=== PATIENT | female | born 1990 ===

== ENCOUNTER 2024-10-09 15:14 | Inpatient (IN) | payer OTHER, SELFPAY ==
[2024-10-09 16:02] VITALS: BP 130/67; PULSE 74; RESP 20; TEMP 37.4; O2SAT 96
[2024-10-09 16:11] VITALS: BMI 24.3
[2024-10-09] MEDS: OLANZapine 5 MG TABLET PO (16:17)
[2024-10-09] MEDS: Nicotine Polacrilex 2 MG GUM 4 MG BUCCAL (16:17)
[2024-10-09] MEDS: Nicotine 21 MG PATCH.TD24 TRANSDERMA (16:19)
[2024-10-09] MEDS: hydrOXYzine HCL 25 MG TABLET PO (16:50)
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
[2024-10-09 20:00] VITALS: BP 109/51; PULSE 71; TEMP 36.8; O2SAT 96
--- NOTE | 2024-10-09 20:41 | HE.PHANOTE ---
Methadone verified [facility] last dose igevn 10/09/24 @1018
[2024-10-09] MEDS: Gabapentin 600 MG TABLET PO (20:45)
[2024-10-10] MEDS: Acetaminophen 325 MG TABLET 650 MG PO (04:52)
[2024-10-10] MEDS: Nicotine Polacrilex 2 MG GUM 4 MG BUCCAL ×5 (06:13→19:22)
[2024-10-10 06:40] VITALS: BP 136/74; PULSE 78; TEMP 36.8; O2SAT 98
[2024-10-10 06:41] VITALS: BP 136/74
[2024-10-10] MEDS: OLANZapine 5 MG TABLET PO (06:41)
[2024-10-10] MEDS: cloNIDine HCL 0.1 MG TABLET PO (06:41)
--- NOTE | 2024-10-10 07:37 | HO.PSYADMNOT ---
HPI Date of Service: 10/10/24 Chief Complaint: bipolar 1 disorder Sources of Information: patient interviewed and chart reviewed HPI Subjective Notes: 3 Day Healthcare Proxy: No Guardianship: No Medical Problems Affecting Mental Status: No Narrative: 34 yo says she stopped her medications about 6months ago , was overwhelmed with her problems and starting using again- instead of dealing with her problems. Came in quite psychotic and responding to internal stimuli either while on or coming off a recent xs drug use smoking crack and fenatnyl and thc. Got olanzapine x 2 yesterday 5mg- and seems more together today- can participate though limitedly cooperative had brief hospitalist davina, myself and social media marketing manager assessment and was quiet annoyed. But didn't appear psychotic or disruptive- Pt was walking xs fast to her room, then cooperated with short interview around hx- Pt was transferred from [facility] - where she had been agitated and psychotic- Reports prior hx of [facility] care but dropped out- wouldn't really say why- Pt reports she signed a 3 day as she wants to get out and deal with her problems. (also checks come in for disability around this time of month) Said I was losing it as to why she came in - She was feeling suicidal, she had not made an attempt but did have a plan. Wants to go back on GAbapentin 600-800mg tid , zolpidem and seroquel. Past Psychiatric History: [facility] outpaitent, ? therapy ? sub abuse treatment - hx gabapentin, seroquel and ? zopidem last psych hosp was [place] recently inc gabapentin to 800mg tid Medical Evaluation Reviewed: Yes no clear findings outside psa and psych [facility] Medical History Bipolar disorder Polysubstance abuse Family History: pt denies knowing any Social History: says has place to live, says has friends, and family- won't elaborate likely on ssdi or ssi Substance History: crack, fentanyl and thc Trauma History: not obtained Diagnostics Vital Signs (24Hr): Vital Signs - 24 hr 10/09/24 16:02 10/09/24 20:00 10/09/24 20:00 Temperature 99.3 F 98.2 F 98.2 F Pulse Rate 74 71 71 Respiratory Rate 20 Blood Pressure 130/67 109/51 L 109/51 L Pulse Oximetry 96 96 96 Oxygen Delivery Method Room Air Room Air Room Air 10/10/24 06:40 10/10/24 06:41 Temperature 98.2 F Pulse Rate 78 Respiratory Rate Blood Pressure 136/74 136/74 Pulse Oximetry 98 Oxygen Delivery Method Room Air BMI result Body Mass Index 24.3 Meds/Allergies Meds Home Medications ?Medication ?Instructions ?Recorded ?Confirmed ?Type clonidine HCl 0.1 mg tablet 0.1 mg PO BID PRN Anxiety 10/09/24 10/09/24 History gabapentin 600 mg tablet 600 mg PO TID 10/09/24 10/09/24 History hydroxyzine pamoate 50 mg capsule 50 mg PO TID PRN Anxiety 10/09/24 10/09/24 History methadone 10 mg/mL oral syringe 90 mg PO DAILY 10/09/24 10/09/24 History (FOR ORAL USE ONLY) quetiapine 50 mg tablet 50 mg PO BID PRN Anxiety 10/09/24 10/09/24 History Allergies Allergies Allergy/AdvReac Type Severity Reaction Status Date / Time Sulfa (Sulfonamide Allergy Unknown Unknown Verified 10/09/24 16:00 Antibiotics) Mental Status Exam Mental Status Exam Patient Appearance: Unkempt Patient Orientation: Person, Place, Time and Situation Level of Consciousness: Awake Patient Behavior: Guarded, Resistive to Care, Distractible and Poor Eye Contact Mood Description: Suspicious and Apprehensive Affect Description: Blunted Patient Cognition Impaired: No Ability to Follow Directions: Fair Speech Pattern: Clear Hallucinations: None Delusions: Paranoid Ideation (?) Thought Process: Intact and Goal Oriented Thought Content: positive for Suicidal Ideation Depressive Symptoms: Increased Irritability Abnormal Motor Activity Signs and Symptoms: Restlessness Judgement: Fair Assessment & Plan Assessment & Plan (1) Manic affective disorder with recurrent episode: Status: Acute Code(s): F31.89 - Other bipolar disorder Assessment and Plan: seems calmer on olanzapine really changed things around for her between yesterday and today as well as not being on psychoactive substances (2) Cocaine abuse: Status: Acute Code(s): F14.10 - Cocaine abuse, uncomplicated (3) Opiate abuse, episodic: Status: Acute Code(s): F11.10 - Opioid abuse, uncomplicated (4) Cannabis abuse: Status: Acute Code(s): F12.10 - Cannabis abuse, uncomplicated Plan continue olanzapine- Patient educated on: diagnosis, medication risk/benefits and substance abuse Informed Consent: understands and further education needed Reason for continued inpatient stay Substantial Risk for: harm to self and rapid decompensation Statement Statement: I have reviewed the history and physical and performed a pertinent examination on my patient. No changes have occurred unless specified. If the History and Physical was not performed prior to admission, the Hospitalist's service will be consulted for completing the admission physical. Time Spent With Patient Time: Total time managing care of this patient today ____ minutes.
[2024-10-10 08:00] VITALS: BP 119/64; PULSE 88; RESP 16; TEMP 37.2; O2SAT 97
[2024-10-10] MEDS: Gabapentin 600 MG TABLET PO ×3 (08:12→20:42)
[2024-10-10] MEDS: methADONE HCl 20 MG/2 ML ORAL.CONC 90 MG PO (08:37)
[2024-10-10 09:37] LABS: Estimated Average Glucose 97 mg/dL; Hemoglobin A1C 125.1338 umol/L; Total Hemoglobin (HGBA1C) 4012.3491 umol/L
[2024-10-10 09:41] LABS: Cholesterol 140 mg/dL (<200); HDL Cholesterol 41 mg/dL (>40); LDL Cholesterol Calculated 86 mg/dL (<100); Triglycerides 69 mg/dL (<150)
--- NOTE | 2024-10-10 12:31 | P.CONHOSP_ITS ---
History of Present Illness Data of Consult Service Date: 10/10/24 Requesting physician: Florian Hadley Primary Care Provider: Pierre Physician HPI Reason for consult: Medical H&P 34-year-old female with history of polysubstance abuse and bipolar disorder but no other significant past medical history admitted to adult Psychiatry with consult placed to hospitalist service for medical H&P. The patient is lying in bed and declines full interview but does participate in ROS and CN exam. She does deny any complaints. She is admitted from [facility] ED where hematology studies were unremarkable. Renal function electrolyte levels within normal limits. Hepatic function within normal limits. She was positive for cocaine, THC, and fentanyl. Vital signs WNL in the ED and are WNL on the unit. Review of Systems Review of Systems: General: No fevers, malaise, unintentional weight loss HEENT: No blurred vision, diplopia. No sore throat, nasal congestion, rhinorrhea, sinus pain, ear pain Cardiovascular: No chest pain, palpitations, or leg edema Respiratory: No shortness of breath, wheezing, cough GI: No abdominal pain, nausea, vomiting, diarrhea, constipation, melena, hematochezia : No dysuria, hematuria, increased urinary frequency, decreased urinary output MSK: No myalgia, back pain Neuro: No headaches, weakness, paresthesias Skin: No rashes or lesions PMFSH Medical History Bipolar disorder Polysubstance abuse Social History Household Members: Unknown / Unable to assess Household Members Other:: Patient currently unable to participate, floridly psychotic Housing: Unknown / Unable to assess Housing Other:: Patient currently unable to participate, floridly psychotic Do you presently have visiting nurse or other home services: No Patient Tobacco Use Status: Current everyday Tobacco user Tobacco use type: Cigarette Cigarette Packs Per Day: 2 Cigarettes Per Day: 40.0 Patient Interested in Nicotine Replacement: Yes Patient Given Instructions on How to Stop Smoking: No (refused) Use of substances other than those prescribed or required for medical reasons: Yes Substance Use Type: Crack/Cocaine, Heroin, Marijuana and Opiates Substance Use Frequency: Chronic Longstanding Last Used Substance: Days (ago) Currently Displaying Signs/Symptoms of Drug Intoxication Withdrawal: No Any prior treatment program specific to substance use: Yes (currently on methadone) Spiritual Healthcare Practices: Patient currently unable to participate, floridly psychotic, hallucinating, crying and yelling at hallucinations to stop hurting people. Ep[employer]opalian Healthcare Practices: Patient currently unable to participate, floridly psychotic, hallucinating, crying and yelling at hallucinations to stop hurting people. Cultural Healthcare Practices: Patient currently unable to participate, floridly psychotic, hallucinating, crying and yelling at hallucinations to stop hurting people. Advance Directives: No Advance Directives Information Provided: Yes Do you have thoughts of harming others: None Do you have a plan to hurt others: No Plan Recently lost weight without trying: Unsure How much weight loss: Unsure Eating poorly because of decreased appetite: No Nutrition screen score: 4 Nutrition Risks: No Nutritional Risk Patient : No : No Poor oral hygiene: Yes Meds Allergies Allergy/AdvReac Type Severity Reaction Status Date / Time Sulfa (Sulfonamide Allergy Unknown Unknown Verified 10/09/24 16:00 Antibiotics) Active Medications: Current Medications Acetaminophen (Acetaminophen 325 Mg Tablet) 650 mg PO Q6H PRN PRN Reason: Headache/Pain, Scale 1-10 Last Admin: 10/10/24 04:52 Dose: 650 mg Al Hydroxide/Mg Hydroxide (Magnesium Hydrox/Alum Hydrox 30 Ml Oral.Susp) 30 ml PO Q6H PRN PRN Reason: Heartburn/Nausea Clonidine HCl (Clonidine Hcl 0.1 Mg Tablet) 0.1 mg PO Q4H PRN; Protocol PRN Reason: moderate Anxiety Last Admin: 10/10/24 06:41 Dose: 0.1 mg Gabapentin (Gabapentin 600 Mg Tablet) 600 mg PO TID [facility] Last Admin: 10/10/24 08:12 Dose: 600 mg Hydroxyzine HCl (Hydroxyzine Hcl 50 Mg Tablet) 50 mg PO TID PRN PRN Reason: mild Anxiety Magnesium Hydroxide (Milk Of Magnesia 30 Ml Oral.Susp) 30 ml PO DAILY PRN PRN Reason: Constipation Methadone HCl (Methadone Hcl 20 Mg/2 Ml Oral.Conc) 90 mg PO DAILY [facility] Last Admin: 10/10/24 08:37 Dose: 90 mg Nicotine (Nicotine 21 Mg Patch.Td24) 21 mg TRANSDERMA DAILY PRN PRN Reason: smoking cessation Last Admin: 10/09/24 16:19 Dose: 21 mg Nicotine Polacrilex (Nicotine Polacrilex 2 Mg Gum) 4 mg BUCCAL Q2H PRN PRN Reason: Nicotine Cravings Last Admin: 10/10/24 08:36 Dose: 4 mg Olanzapine (Olanzapine 5 Mg Tablet) 5 mg PO TID PRN PRN Reason: agitation Last Admin: 10/10/24 06:41 Dose: 5 mg Olanzapine (Olanzapine 10 Mg Tablet) 10 mg PO BEDTIME DANE Quetiapine Fumarate (Quetiapine Fumarate 50 Mg Tablet) 50 mg PO BID PRN PRN Reason: mod to severe Anxiety Trazodone HCl (Trazodone Hcl 50 Mg Tablet) 50 mg PO BEDTIME MRX1 PRN PRN Reason: Insomnia Home Medications ?Medication ?Instructions ?Recorded ?Confirmed ?Last Taken ?Type clonidine HCl 0.1 mg tablet 0.1 mg PO BID PRN Anxiety 10/09/24 10/09/24 Unknown History gabapentin 600 mg tablet 600 mg PO TID 10/09/24 10/09/24 10/09/24 History hydroxyzine pamoate 50 mg capsule 50 mg PO TID PRN Anxiety 10/09/24 10/09/24 Unknown History methadone 10 mg/mL oral syringe 90 mg PO DAILY 10/09/24 10/09/24 10/09/24 History (FOR ORAL USE ONLY) quetiapine 50 mg tablet 50 mg PO BID PRN Anxiety 10/09/24 10/09/24 Unknown History Physical Exam Vital Signs and Narrative: Vital Signs: Last Vital Signs Temp 98.9 F 10/10/24 08:00 Pulse 88 10/10/24 08:00 Resp 16 10/10/24 08:00 BP 119/64 10/10/24 08:00 Pulse Ox 97 10/10/24 08:00 O2 Del Method Room Air 10/10/24 08:00 BMI result Body Mass Index 24.3 Constitutional - Awake and Alert, No apparent distress Neuro - CN II-XII in tact, a&o x 3 Declines further exam Results Labs Labs: Laboratory Results - last 24 hr 10/10/24 09:11 Estimat Average Glucose 97 Hemoglobin A1c % 5.0 Triglycerides 69 Cholesterol 140 LDL Cholesterol, Calc 86 HDL Cholesterol 41 Assessment and Plan (1) Routine medical exam: Status: Acute Plan 34-year-old female with history of polysubstance abuse and bipolar disorder but no other significant past medical history admitted to adult Psychiatry with consult placed to hospitalist service for medical H&P. The patient is lying in bed and declines full interview but does participate in ROS. BBipolar disorder plan per psychiatry Polysubstance abuse plan her psychiatry/addiction team Labs reviewed from [facility] ED and [facility] are reassuring without any abnormality. Vital signs have been stable. Thank you for allowing me to participate in this consult. Signing off at this time. Please do not hesitate to call for further questions or for any acute medical issues
[2024-10-10] MEDS: Nicotine 21 MG PATCH.TD24 TRANSDERMA (12:39)
[2024-10-10] MEDS: QUEtiapine Fumarate 50 MG TABLET PO (19:21)
[2024-10-10 20:00] VITALS: BP 117/64; PULSE 68; TEMP 36.4; O2SAT 99
[2024-10-10] MEDS: OLANZapine 10 MG TABLET PO (20:42)
--- NOTE | 2024-10-10 22:06 | PC.NURSE ---
At approximately 1900 as this comic writer was coming on duty, this patient pointed to the dietary cart containing all meals. This was being removed from the floor after dinner. The patient asked this comic writer Is that breakfast? When this comic writer stated it was dinner, the patient seemed confused and had to be oriented as to time.
--- NOTE | 2024-10-10 22:08 | PC.NURSE ---
At approximately 2044, when this freelance copywriter approached this patient in her room for assessment and medication administration, the patient sat up in bed before she was spoken to; at this time she stated loudly to this freelance copywriter I'm not a child molester! This freelance copywriter, confused, stated my name, role, and time of day. The patient was superficially agreeable, but interrupted this freelance copywriter repeatedly stating I'm fine, no, no, I'm fine, without giving this freelance copywriter time to enquire or finish an enquiry as to anxiety, depression, suicidality, etc. This freelance copywriter attempted to explain to the patient that it was time for nighttime medications, and what medications and dosages the patient was scheduled to take. The patient stated I don't care, just give them to me. It is difficult to gauge how organized the patient is at this time.
--- NOTE | 2024-10-11 00:01 | PC.NURSE ---
This patient's roomate has advised this racebook writer that this patient is swearing and talking to the air.
[2024-10-11] MEDS: methADONE HCl 20 MG/2 ML ORAL.CONC 90 MG PO (07:50)
[2024-10-11 08:00] VITALS: BP 116/67; PULSE 72; RESP 16; TEMP 36.9; O2SAT 100
[2024-10-11] MEDS: Acetaminophen 325 MG TABLET 650 MG PO (08:06)
[2024-10-11] MEDS: Gabapentin 600 MG TABLET PO ×3 (08:07→21:13)
[2024-10-11] MEDS: Nicotine Polacrilex 2 MG GUM 4 MG BUCCAL ×5 (08:56→19:44)
--- NOTE | 2024-10-11 09:00 | ECG_ITS ---
Test Reason : QTC CHECK Blood Pressure : */* mmHG Vent. Rate : 58 BPM Atrial Rate : 58 BPM P-R Int : 124 ms QRS Dur : 72 ms QT Int : 424 ms P-R-T Axes : 51 44 14 degrees QTcB Int : 416 ms Sinus bradycardia Low voltage QRS Borderline ECG No previous ECGs available Referred By: Freddie Dugan Electronically Signed By: ASAEL MAGAÑA MD
--- NOTE | 2024-10-11 10:42 | HO.PSYCHPN ---
Subjective Subjective Date of Service: 10/11/24 Reason For Visit: bipolar 1 disorder Subjective Notes: Conditional Voluntary and 3 Day Healthcare Proxy: No Guardianship: No Medical Problems Affecting Mental Status: No Interim History: 34 yo with ongoing struggle with lability- very psychotic then put together then decompensates again- retracted 3 day then asked for it again- Told us the brain bleed is telling her things- that we know- Did agree to prn olanzapine and hydroxyzine when both this provider and nurse came to speak with her- was clearly acutely psychotic and believed this brain bleed was talking to her- Medication Compliance: Yes Side effects from medications: No Attending Groups: No Review of Systems Acute medical concerns: No Medical Review of Systems: unchanged Mental Status Exam Mental Status Exam Patient Appearance: Unkempt Patient Orientation: Person, Place and Situation Level of Consciousness: Awake Patient Behavior: Guarded, Suspicious, Restless, Distractible and Impulsive Mood Description: Angry and Apprehensive Affect Description: Labile Patient Cognition Impaired: No Ability to Follow Directions: Fair (at times) Speech Pattern: Rapid and Loud Hallucinations: Auditory Delusions: Being Controlled Thought Process: Distracted Thought Content: positive for Disorganized Depressive Symptoms: Muscle Tension and Difficulty Concentrating Abnormal Motor Activity Signs and Symptoms: Agitation Judgement: Poor Diagnostics Vital Signs (24Hr): Vital Signs - 24 hr 10/10/24 20:00 10/11/24 08:00 Temperature 97.6 F 98.5 F Pulse Rate 68 72 Respiratory Rate 16 Blood Pressure 117/64 116/67 Pulse Oximetry 99 100 Oxygen Delivery Method Room Air Room Air BMI result Body Mass Index 24.3 Labs Labs: Laboratory Results - last 48 hr 10/10/24 09:11 Estimat Average Glucose 97 Hemoglobin A1c % 5.0 Triglycerides 69 Cholesterol 140 LDL Cholesterol, Calc 86 HDL Cholesterol 41 Medications Medications Current Medications Acetaminophen (Acetaminophen 325 Mg Tablet) 650 mg PO Q6H PRN PRN Reason: Headache/Pain, Scale 1-10 Last Admin: 10/11/24 08:06 Dose: 650 mg Al Hydroxide/Mg Hydroxide (Magnesium Hydrox/Alum Hydrox 30 Ml Oral.Susp) 30 ml PO Q6H PRN PRN Reason: Heartburn/Nausea Clonidine HCl (Clonidine Hcl 0.1 Mg Tablet) 0.1 mg PO Q4H PRN; Protocol PRN Reason: moderate Anxiety Last Admin: 10/10/24 06:41 Dose: 0.1 mg Gabapentin (Gabapentin 600 Mg Tablet) 600 mg PO TID [facility] Last Admin: 10/11/24 08:07 Dose: 600 mg Hydroxyzine HCl (Hydroxyzine Hcl 50 Mg Tablet) 50 mg PO TID PRN PRN Reason: mild Anxiety Magnesium Hydroxide (Milk Of Magnesia 30 Ml Oral.Susp) 30 ml PO DAILY PRN PRN Reason: Constipation Methadone HCl (Methadone Hcl 20 Mg/2 Ml Oral.Conc) 90 mg PO DAILY [facility] Last Admin: 10/11/24 07:50 Dose: 90 mg Nicotine (Nicotine 21 Mg Patch.Td24) 21 mg TRANSDERMA DAILY PRN PRN Reason: smoking cessation Last Admin: 10/10/24 12:39 Dose: 21 mg Nicotine Polacrilex (Nicotine Polacrilex 2 Mg Gum) 4 mg BUCCAL Q2H PRN PRN Reason: Nicotine Cravings Last Admin: 10/11/24 08:56 Dose: 4 mg Olanzapine (Olanzapine 5 Mg Tablet) 5 mg PO TID PRN PRN Reason: agitation Last Admin: 10/10/24 06:41 Dose: 5 mg Olanzapine (Olanzapine 10 Mg Tablet) 10 mg PO BEDTIME [facility] Last Admin: 10/10/24 20:42 Dose: 10 mg Quetiapine Fumarate (Quetiapine Fumarate 50 Mg Tablet) 50 mg PO BID PRN PRN Reason: mod to severe Anxiety Last Admin: 10/10/24 19:21 Dose: 50 mg Trazodone HCl (Trazodone Hcl 50 Mg Tablet) 50 mg PO BEDTIME MRX1 PRN PRN Reason: Insomnia Allergies Allergies Allergy/AdvReac Type Severity Reaction Status Date / Time Sulfa (Sulfonamide Allergy Unknown Unknown Verified 10/09/24 16:00 Antibiotics) Assessment & Plan Assessment & Plan (1) Manic affective disorder with recurrent episode: Status: Acute Code(s): F31.89 - Other bipolar disorder Assessment and Plan: seems calmer on olanzapine really changed things around for her between yesterday and today as well as not being on psychoactive substances (2) Cocaine abuse: Status: Acute Code(s): F14.10 - Cocaine abuse, uncomplicated (3) Opiate abuse, episodic: Status: Acute Code(s): F11.10 - Opioid abuse, uncomplicated (4) Cannabis abuse: Status: Acute Code(s): F12.10 - Cannabis abuse, uncomplicated Plan continue olanzapine- 10/11 - continues labile , psychotic believes this brain bleed might be controlling her- Patient educated on: medication risk/benefits Informed Consent: further education needed Reason for continued inpatient stay Substantial Risk for: harm to self, inability to function and rapid decompensation Time Spent With Patient Time: Total time managing care of this patient today ____ minutes.
[2024-10-11] MEDS: OLANZapine 5 MG TABLET PO (11:44)
[2024-10-11] MEDS: hydrOXYzine HCL 50 MG TABLET PO (11:44)
[2024-10-11 14:01] VITALS: BP 124/67
[2024-10-11] MEDS: cloNIDine HCL 0.1 MG TABLET PO (14:01)
[2024-10-11] MEDS: Nicotine 21 MG PATCH.TD24 TRANSDERMA (14:03)
[2024-10-11 20:00] VITALS: BP 106/58; PULSE 81; TEMP 36.6; O2SAT 98
[2024-10-11] MEDS: QUEtiapine Fumarate 50 MG TABLET PO (21:13)
[2024-10-11] MEDS: OLANZapine 10 MG TABLET PO (21:13)
[2024-10-12 07:56] VITALS: BP 106/51; PULSE 60; TEMP 36.4; O2SAT 98
[2024-10-12] MEDS: methADONE HCl 20 MG/2 ML ORAL.CONC 90 MG PO (08:01)
[2024-10-12] MEDS: Gabapentin 600 MG TABLET PO ×3 (08:29→20:42)
[2024-10-12] MEDS: Nicotine Polacrilex 2 MG GUM 4 MG BUCCAL ×6 (08:55→22:15)
--- NOTE | 2024-10-12 09:17 | HO.PSYCHPN ---
Subjective Subjective Date of Service: 10/12/24 Reason For Visit: bipolar 1 disorder Interim History: met with patient; discussed with team; reviewed chart Patient reports that she is doing fine that they zyprexa has helped and she does not want any medication changes. Manager Spring inquired as to what is better and patient says I feel like. a different person.. However she is not willing to discuss in what ways and says that technical writer and editor is starting to bother her. She denies any SI or AH. She says I put in a 3 day notice and I am discharging home to [place] where she lives with her father and grandmother. Mental Status Exam Mental Status Exam Narrative: Pt is alert and oriented; behavior is superficially polite; guarded with any further inquiry; overall calm and in good behavioral and impulse control; patient is not in distress; dressed in casual attire with adequate hygiene and grooming; mood is described as fine and affect congruent, a little constricted; eye contact appropriate; Speech is normal rate, volume and prosody and not pressured; no psychomotor agitation/retardation present; thought process is organized and goal directed; Thought content is not much revealed but denies any delusional thinking; denies any SI/HI. Denies AVH and there is no evidence of perceptual disturbance. Patients insight and judgment impaired but much improved and adequate. Diagnostics Vital Signs (24Hr): Vital Signs - 24 hr 10/11/24 14:01 10/11/24 20:00 10/12/24 07:56 Temperature 97.9 F 97.5 F Pulse Rate 81 60 Blood Pressure 124/67 106/58 L 106/51 L Pulse Oximetry 98 98 Oxygen Delivery Method Room Air Room Air BMI result Body Mass Index 24.3 Labs Labs: Laboratory Results - last 48 hr 10/10/24 09:11 Estimat Average Glucose 97 Hemoglobin A1c % 5.0 Triglycerides 69 Cholesterol 140 LDL Cholesterol, Calc 86 HDL Cholesterol 41 Medications Medications Current Medications Acetaminophen (Acetaminophen 325 Mg Tablet) 650 mg PO Q6H PRN PRN Reason: Headache/Pain, Scale 1-10 Last Admin: 10/11/24 08:06 Dose: 650 mg Al Hydroxide/Mg Hydroxide (Magnesium Hydrox/Alum Hydrox 30 Ml Oral.Susp) 30 ml PO Q6H PRN PRN Reason: Heartburn/Nausea Clonidine HCl (Clonidine Hcl 0.1 Mg Tablet) 0.1 mg PO Q4H PRN; Protocol PRN Reason: moderate Anxiety Last Admin: 10/11/24 14:01 Dose: 0.1 mg Gabapentin (Gabapentin 600 Mg Tablet) 600 mg PO TID [facility] Last Admin: 10/12/24 08:29 Dose: 600 mg Hydroxyzine HCl (Hydroxyzine Hcl 50 Mg Tablet) 50 mg PO TID PRN PRN Reason: mild Anxiety Last Admin: 10/11/24 11:44 Dose: 50 mg Magnesium Hydroxide (Milk Of Magnesia 30 Ml Oral.Susp) 30 ml PO DAILY PRN PRN Reason: Constipation Methadone HCl (Methadone Hcl 20 Mg/2 Ml Oral.Conc) 90 mg PO DAILY@0800 [facility] Last Admin: 10/12/24 08:01 Dose: 90 mg Nicotine (Nicotine 21 Mg Patch.Td24) 21 mg TRANSDERMA DAILY PRN PRN Reason: smoking cessation Last Admin: 10/11/24 14:03 Dose: 21 mg Nicotine Polacrilex (Nicotine Polacrilex 2 Mg Gum) 4 mg BUCCAL Q2H PRN PRN Reason: Nicotine Cravings Last Admin: 10/12/24 08:55 Dose: 4 mg Olanzapine (Olanzapine 5 Mg Tablet) 5 mg PO TID PRN PRN Reason: agitation Last Admin: 10/11/24 11:44 Dose: 5 mg Olanzapine (Olanzapine 10 Mg Tablet) 10 mg PO BEDTIME [facility] Last Admin: 10/11/24 21:13 Dose: 10 mg Quetiapine Fumarate (Quetiapine Fumarate 50 Mg Tablet) 50 mg PO BID PRN PRN Reason: mod to severe Anxiety Last Admin: 10/11/24 21:13 Dose: 50 mg Trazodone HCl (Trazodone Hcl 50 Mg Tablet) 50 mg PO BEDTIME MRX1 PRN PRN Reason: Insomnia Allergies Allergies Allergy/AdvReac Type Severity Reaction Status Date / Time Sulfa (Sulfonamide Allergy Unknown Unknown Verified 10/09/24 16:00 Antibiotics) Assessment & Plan Assessment & Plan (1) Manic affective disorder with recurrent episode: Status: Acute Code(s): F31.89 - Other bipolar disorder Assessment and Plan: seems calmer on olanzapine really changed things around for her between yesterday and today as well as not being on psychoactive substances (2) Cocaine abuse: Status: Acute Code(s): F14.10 - Cocaine abuse, uncomplicated (3) Opiate abuse, episodic: Status: Acute Code(s): F11.10 - Opioid abuse, uncomplicated (4) Cannabis abuse: Status: Acute Code(s): F12.10 - Cannabis abuse, uncomplicated Plan continue olanzapine- 10/11 - continues labile , psychotic believes this brain bleed might be controlling her- 10/12 Patient reports that she is doing fine that they zyprexa has helped and she does not want any medication changes. Manager Spring inquired as to what is better and patient says I feel like. a different person.. However she is not willing to discuss in what ways and says that technical writer and editor is starting to bother her. She denies any SI or AH. She says I put in a 3 day notice and I am discharging home to [place] where she lives with her father and grandmother. -patient not willing to talk much but denies any psychotic symptoms and not expressing any delusional beliefs and is overall organized in speech and behavior and maintaining appropriate behaviors. Patient has signed a 3 day notice which is coming due. Will continue to monitor but if she remains in good behavioral and impulse control will proceed with discharge. Patient educated on: diagnosis and medication risk/benefits Informed Consent: understands and further education needed Reason for continued inpatient stay Substantial Risk for: rapid decompensation Time Spent With Patient Time: Total time managing care of this patient today ____ minutes.
[2024-10-12] MEDS: Nicotine 21 MG PATCH.TD24 TRANSDERMA (14:35)
[2024-10-12 20:00] VITALS: BP 138/89; PULSE 82; RESP 16; TEMP 37.2; O2SAT 98
[2024-10-12] MEDS: OLANZapine 10 MG TABLET PO (20:42)
[2024-10-12] MEDS: QUEtiapine Fumarate 50 MG TABLET PO (20:42)
[2024-10-13] MEDS: methADONE HCl 20 MG/2 ML ORAL.CONC 90 MG PO (07:47)
[2024-10-13] MEDS: Nicotine Polacrilex 2 MG GUM 4 MG BUCCAL ×5 (07:48→22:08)
[2024-10-13 07:49] VITALS: BP 105/51; PULSE 60; RESP 16; TEMP 36.4; O2SAT 99
[2024-10-13] MEDS: Gabapentin 600 MG TABLET PO ×3 (08:12→20:56)
[2024-10-13] MEDS: Nicotine 21 MG PATCH.TD24 TRANSDERMA (12:20)
--- NOTE | 2024-10-13 14:58 | P.PNPSI_ITS ---
Subjective Subjective Date of Service: 10/13/24 Reason For Visit: bipolar 1 disorder Interim History: Met with patient; discussed with team pt says she's great and that she's ready to dc tomorrow. She then lists off dont want to hurt myself or anyone else...no voices. She says sleeping well and going to fathers in [place]. no questions. Pt organized in speech and behavior. Mental Status Exam Mental Status Exam Narrative: Pt is alert and oriented; behavior is superficially polite; calm and in good behavioral and impulse control; patient is not in distress; dressed in casual attire with adequate hygiene and grooming; mood is described as great and affect congruent; eye contact appropriate; Speech is normal rate, volume and prosody and not pressured; no psychomotor agitation/retardation present; thought process is organized and goal directed; Thought content is not much revealed but denies any delusional thinking; denies any SI/HI. Denies AVH and there is no evidence of perceptual disturbance. Patients insight and judgment impaired but much improved and adequate. Diagnostics Vital Signs (24Hr): Vital Signs - 24 hr 10/12/24 20:00 10/13/24 07:49 Temperature 99 F 97.5 F Pulse Rate 82 60 Respiratory Rate 16 16 Blood Pressure 138/89 105/51 L Pulse Oximetry 98 99 Oxygen Delivery Method Room Air Room Air BMI result Body Mass Index 24.3 Medications Medications Current Medications Acetaminophen (Acetaminophen 325 Mg Tablet) 650 mg PO Q6H PRN PRN Reason: Headache/Pain, Scale 1-10 Last Admin: 10/11/24 08:06 Dose: 650 mg Al Hydroxide/Mg Hydroxide (Magnesium Hydrox/Alum Hydrox 30 Ml Oral.Susp) 30 ml PO Q6H PRN PRN Reason: Heartburn/Nausea Clonidine HCl (Clonidine Hcl 0.1 Mg Tablet) 0.1 mg PO Q4H PRN; Protocol PRN Reason: moderate Anxiety Last Admin: 10/11/24 14:01 Dose: 0.1 mg Gabapentin (Gabapentin 600 Mg Tablet) 600 mg PO TID [facility] Last Admin: 10/13/24 14:51 Dose: 600 mg Hydroxyzine HCl (Hydroxyzine Hcl 50 Mg Tablet) 50 mg PO TID PRN PRN Reason: mild Anxiety Last Admin: 10/11/24 11:44 Dose: 50 mg Magnesium Hydroxide (Milk Of Magnesia 30 Ml Oral.Susp) 30 ml PO DAILY PRN PRN Reason: Constipation Methadone HCl (Methadone Hcl 20 Mg/2 Ml Oral.Conc) 90 mg PO DAILY@0800 [facility] Last Admin: 10/13/24 07:47 Dose: 90 mg Nicotine (Nicotine 21 Mg Patch.Td24) 21 mg TRANSDERMA DAILY PRN PRN Reason: smoking cessation Last Admin: 10/13/24 12:20 Dose: 21 mg Nicotine Polacrilex (Nicotine Polacrilex Lozenge 4 Mg Lozenge) 4 mg BUCCAL Q2H PRN PRN Reason: Nicotine Cravings Olanzapine (Olanzapine 5 Mg Tablet) 5 mg PO TID PRN PRN Reason: agitation Last Admin: 10/11/24 11:44 Dose: 5 mg Olanzapine (Olanzapine 10 Mg Tablet) 10 mg PO BEDTIME [facility] Last Admin: 10/12/24 20:42 Dose: 10 mg Quetiapine Fumarate (Quetiapine Fumarate 50 Mg Tablet) 50 mg PO BID PRN PRN Reason: mod to severe Anxiety Last Admin: 10/12/24 20:42 Dose: 50 mg Trazodone HCl (Trazodone Hcl 50 Mg Tablet) 50 mg PO BEDTIME MRX1 PRN PRN Reason: Insomnia Allergies Allergies Allergy/AdvReac Type Severity Reaction Status Date / Time Sulfa (Sulfonamide Allergy Unknown Unknown Verified 10/09/24 16:00 Antibiotics) Assessment & Plan Assessment & Plan (1) Manic affective disorder with recurrent episode: Status: Acute Code(s): F31.89 - Other bipolar disorder Assessment and Plan: seems calmer on olanzapine really changed things around for her between yesterday and today as well as not being on psychoactive substances (2) Cocaine abuse: Status: Acute Code(s): F14.10 - Cocaine abuse, uncomplicated (3) Opiate abuse, episodic: Status: Acute Code(s): F11.10 - Opioid abuse, uncomplicated (4) Cannabis abuse: Status: Acute Code(s): F12.10 - Cannabis abuse, uncomplicated Plan continue olanzapine- 10/11 - continues labile , psychotic believes this brain bleed might be controlling her- 10/12 Patient reports that she is doing fine that they zyprexa has helped and she does not want any medication changes. Leather Dresser inquired as to what is better and patient says I feel like. a different person.. However she is not willing to discuss in what ways and says that adjusto writer operator is starting to bother her. She denies any SI or AH. She says I put in a 3 day notice and I am discharging home to [place] where she lives with her father and grandmother. -patient not willing to talk much but denies any psychotic symptoms and not expressing any delusional beliefs and is overall organized in speech and behavior and maintaining appropriate behaviors. Patient has signed a 3 day notice which is coming due. Will continue to monitor but if she remains in good behavioral and impulse control will proceed with discharge. 10/13 pt says she's great and that she's ready to dc tomorrow. She then lists off dont want to hurt myself or anyone else...no voices. She says sleeping well and going to fathers in [place]. no questions. Pt organized in speech and behavior. pt at baseline; not in imminent risk of harm to self/others and appropriate to return to community for tx Patient educated on: diagnosis and medication risk/benefits Informed Consent: understands Reason for continued inpatient stay Substantial Risk for: stable for discharge Time Spent With Patient Time: Total time managing care of this patient today ____ minutes.
[2024-10-13] MEDS: hydrOXYzine HCL 50 MG TABLET PO (18:07)
[2024-10-13] MEDS: OLANZapine 5 MG TABLET PO (18:07)
[2024-10-13 18:09] VITALS: BP 124/69
[2024-10-13] MEDS: cloNIDine HCL 0.1 MG TABLET PO (18:09)
[2024-10-13 18:17] VITALS: BP 124/79; PULSE 100; RESP 18; TEMP 37.4; O2SAT 96
[2024-10-13 20:00] VITALS: BP 118/71; PULSE 93; TEMP 37.4; O2SAT 96
[2024-10-13] MEDS: OLANZapine 10 MG TABLET PO (20:56)
--- NOTE | 2024-10-14 07:25 | P.DS_ITS ---
DS: Providers Provider Date of Service: 10/14/24 Date of admission: 10/09/24 15:14 Date of discharge: 10/14/24 Primary care physician: None Physician Attending physician on admission: Carmen Powers Consults: 10/10/24 08:25 Consult to Hospitalist Routine Comment: Consulting Provider: [facility] Hospitalists Reason For Exam: transfer from [facility] Attending physician on discharge: Freddie Dugan DS: Diagnosis Discharge Diagnosis (1) Schizoaffective disorder: Status: Acute (2) Cocaine abuse: Status: Acute (3) Opiate abuse, episodic: Status: Acute (4) Cannabis abuse: Status: Acute DS: Medications Discharge Medications Home Medications: Home Medications ?Medication ?Instructions ?Recorded ?Confirmed methadone 10 mg/mL oral syringe 90 mg PO DAILY 10/09/24 10/09/24 (FOR ORAL USE ONLY) Previous Rx's ?Medication ?Instructions ?Recorded clonidine HCl 0.1 mg tablet 0.1 mg PO TID PRN Anxiety 30 days 10/14/24 #60 tabs gabapentin 600 mg tablet 600 mg PO TID 30 days #90 tabs 10/14/24 hydroxyzine pamoate 50 mg capsule 50 mg PO TID PRN Anxiety 30 days 10/14/24 #90 caps nicotine (polacrilex) 4 mg gum 4 mg buccal Q2H PRN nicotine 10/14/24 cravings 30 days #100 ea nicotine 21 mg/24 hr daily 21 mg transdermal DAILY PRN 10/14/24 transdermal patch smoking cessation 28 days #28 ea olanzapine 10 mg tablet 10 mg PO BEDTIME 30 days #30 tabs 10/14/24 olanzapine 5 mg tablet 5 mg PO TID PRN agitation 30 days 10/14/24 #30 tabs quetiapine 50 mg tablet 50 mg PO BID PRN moderate Anxiety 10/14/24 30 days #30 tabs Mental Status Exam Mental Status Exam Narrative: Pt is alert and oriented; behavior is superficially polite; calm and in good behavioral and impulse control; patient is not in distress; dressed in casual attire with adequate hygiene and grooming; mood is described as stable and affect congruent; eye contact appropriate; Speech is normal rate, volume and prosody and not pressured; no psychomotor agitation/retardation present; thought process is organized and goal directed; Thought content is not much revealed but denies any delusional thinking; denies any SI/HI. Denies AVH and there is no evidence of perceptual disturbance. Patients insight and judgment impaired but much improved, at baseline and adequate. Data Data Completed and Pending Completed studies during hospitalization [Text1]: 10/10/24 09:11 Estimat Average Glucose 97 Hemoglobin A1c % 5.0 Triglycerides 69 Cholesterol 140 LDL Cholesterol, Calc 86 HDL Cholesterol 41 DS: Summary Hospital Course Hospital Course: HPI: 34 yo says she stopped her medications about 6months ago , was overwhelmed with her problems and starting using again- instead of dealing with her problems. Came in quite psychotic and responding to internal stimuli either while on or coming off a recent xs drug use smoking crack and fenatnyl and thc. Got olanzapine x 2 yesterday 5mg- and seems more together today- can participate though limitedly cooperative had brief hospitalist davina, myself and social media sr strategy manager assessment and was quiet annoyed. But didn't appear psychotic or disruptive- Pt was walking xs fast to her room, then cooperated with short interview around hx- Pt was transferred from [facility] - where she had been agitated and psychotic- Reports prior hx of [facility] care but dropped out- wouldn't really say why- Pt reports she signed a 3 day as she wants to get out and deal with her problems. (also checks come in for disability around this time of month) Said I was losing it as to why she came in - She was feeling suicidal, she had not made an attempt but did have a plan. Wants to go back on GAbapentin 600-800mg tid , zolpidem and seroquel. Hospital course: Patient's suicidality fully resolved. She had some mood lability and delusional thinking but was willing to get on Zyprexa. Soon she started saying that she was fine and feeling back to her regular self. She remained guarded, not disclosing much but her speech and behavior became organized and she remained in good behavioral and impulse control and appropriate with peers and staff. Patient attending ADLs. She continued to deny any SI or HI or AVH or any paranoid delusions; and no paranoid delusional thinking was expressed. Patient placed a 3 day notice and wanted to discharge home to live with her father and grandmother. Substance abuse treatment and risks discussed with patient who at this time did not want any further help or programs; instead patient said she would work out sobriety on own. Patient's 3 day notice came due. Patient had returned to baseline. While she remains at risk for relapse and decompensation this is a chronic struggle for her, that will not resolve with longer stay on inpatient unit. She was not in imminent risk for harm to self or others and request for discharge honored. . Time spent discussing smoking cessation with patient: 3 to 10 minutes Status at Discharge Functional status at discharge: independent ambulation Overall status at discharge: patient is back to baseline Time Spent with Patient Time attestation: Total time managing care of this patient today ____ minutes. Time spent: Less than 30 minutes Discharge Plan Discharge Anticipated Discharge Date/Time: 10/14/24 11:28 Patient Disposition: Home, Self-Care Discharge Diagnosis: Schizoaffective disorder, bipolar type Referrals: Physician,None [Primary Care Provider] - 1 Week Discharge Medications: New nicotine (polacrilex) 4 mg gum 4 mg buccal Q2H PRN (Reason: nicotine cravings) 30 Days Qty: 100 0RF nicotine 21 mg/24 hr Patch 24 Hour 21 mg transdermal DAILY PRN (Reason: smoking cessation) 28 Days Qty: 28 0RF olanzapine 10 mg Tablet 10 mg PO BEDTIME 30 Days Qty: 30 0RF olanzapine 5 mg Tablet 5 mg PO TID PRN (Reason: agitation) 30 Days Qty: 30 0RF Continued methadone 10 mg/mL Syringe 90 mg PO DAILY gabapentin 600 mg Tablet 600 mg PO TID 30 Days Qty: 90 0RF hydroxyzine pamoate 50 mg Capsule 50 mg PO TID PRN (Reason: Anxiety) 30 Days Qty: 90 0RF quetiapine 50 mg Tablet 50 mg PO BID PRN (Reason: moderate Anxiety) 30 Days Qty: 30 0RF Changed clonidine HCl 0.1 mg Tablet 0.1 mg PO TID PRN (Reason: Anxiety) 30 Days Qty: 60 0RF Discharge Orders: Discharge Order (Routine); Ordered 10/14/24 Ordered By: Freddie Dugan Diet: Regular diet Activity on Discharge: As tolerated Stand Alone Forms: Patient Portal Discharge page, Community Support Print Language: Unable To Collect Care Plan Goals: Maintain mood and safe behaviors Take medications as prescribed Continue to pursue sobriety Practice coping skills Continue with outpatient providers and reach out to them as needed Health Concerns: Mood stability and behaviors Sobriety Plan of Treatment: Follow up with your PCP, psychiatric provider and other outpatient providers regarding above concerns Take medications as prescribed Assessment: Risk assessment at time of discharge:? Patient was interviewed prior to discharge and found to be fully oriented and without any SI or HI. Patient has improved insight and judgment and wants to continue treatment. Patient is not in imminent risk of harm to self or others and has a safety plan that includes presenting to the closest ER or calling 911 if feeling unsafe.? Patient has been observed closely by nursing and unit staff throughout admission; patient has not engaged in any behaviors that suggest dangerousness to self or others and has demonstrated appropriate behaviors and impulse control Discharge Date/Time: 10/14/24 10:52
[2024-10-14] MEDS: methADONE HCl 20 MG/2 ML ORAL.CONC 90 MG PO (07:59)
[2024-10-14 08:20] VITALS: BP 114/60; PULSE 58; TEMP 36.3; O2SAT 98
[2024-10-14] MEDS: Nicotine Polacrilex 2 MG GUM 4 MG BUCCAL (09:12)
[2024-10-14] MEDS: Gabapentin 600 MG TABLET PO (09:20)
[2024-10-14] MEDS: Naloxone HCl Nasal TAKE HOME 4 MG SPRAY 8 MG NOSTRILALT (09:21)
== END 2024-10-14 10:52 | disposition home or self-care (01) | DRG 750 ==
PROVIDERS: Admitting Provider Psychiatry & Neurology Psychiatry; Visit Provider Psychiatry & Neurology Psychiatry
DX: F25.0 Schizoaffective disorder, bipolar type (principal); F11.20 Opioid dependence, uncomplicated; F17.210 Nicotine dependence, cigarettes, uncomplicated; F14.10 Cocaine abuse, uncomplicated; F12.10 Cannabis abuse, uncomplicated; F19.10 Other psychoactive substance abuse, uncomplicated; Z71.6 Tobacco abuse counseling; Z79.899 Other long term (current) drug therapy
CPT/HCPCS: 36415; 80061; 83036; 93005

== ENCOUNTER 2024-10-09 15:14 | Outpatient (BNV) | payer MEDICAID, SELFPAY | END 2024-10-11 09:00 | PROVIDERS: Admitting Provider Psychiatry & Neurology Psychiatry; Visit Provider Internal Medicine Cardiovascular Disease | DX: R00.1 Bradycardia, unspecified (principal) | CPT/HCPCS: 93010 ==

== ENCOUNTER → 2024-10-09 15:14 | Outpatient (BNV) | payer OTHER, SELFPAY | PROVIDERS: Admitting Provider Psychiatry & Neurology Psychiatry; Visit Provider Psychiatry & Neurology Psychiatry | DX: F31.12 Bipolar disorder, current episode manic without psychotic features, moderate (principal); F14.10 Cocaine abuse, uncomplicated; F11.10 Opioid abuse, uncomplicated; F12.10 Cannabis abuse, uncomplicated | CPT/HCPCS: 99231; 99232 ==

== ENCOUNTER → 2024-10-09 15:14 | Outpatient (BNV) | payer MEDICAID, SELFPAY | PROVIDERS: Admitting Provider Psychiatry & Neurology Psychiatry; Visit Provider Physician Assistant | DX: Z00.00 Encounter for general adult medical examination without abnormal findings (principal) | CPT/HCPCS: 99222 ==

== ENCOUNTER 2024-10-31 10:33 | Inpatient (IN) | payer OTHER, SELFPAY ==
[2024-10-31 10:36] VITALS: BP 113/74; PULSE 102; RESP 18; TEMP 35.6; O2SAT 99; BMI 27.1
[2024-10-31 11:12] LABS: Appearance Urine Cloudy; Color Urine Yellow; Glucose Urine UA Negative (Negative); Leukocyte Esterase Urine Trace (Negative); Nitrite Urine Negative (Negative); PH 7.5 (5.0-9.0); Specific Gravity - Urine 1.025 (1.005-1.025); UMIC TRIGGER UACC YES; Urine Blood Negative (Negative); Urine Ketones Trace mg/dL (Negative); Urine Protein Trace mg/dL (Neg-Trace)
[2024-10-31 11:19] LABS: Amphetamine Screen Urine Not Detected (Not Detect); Barbiturates, Urine Not Detected (Not Detect); Benzodiazepines Screen Urine Not Detected (Not Detect); Buprenorphine Scr Not Detected (Not Detect); Cannabinoid Screen Urine POSITIVE (Not Detect); Cocaine Screen Urine POSITIVE (Not Detect); Fentanyl, urine POSITIVE (Not Detect); Methadone Screen, Urine Positive (Not Detect); Opiate Screen Urine POSITIVE (Not Detect); Oxycodone Screen Urine Not Detected (Not Detect); Phencyclidine Screen Urine Not Detected (Not Detect)
--- NOTE | 2024-10-31 11:19 | ED_ITS ---
HPI - Psych General Chief Complaint: Psychiatric Symptoms Stated Complaint: crisis Time Seen by Provider: 10/31/24 10:59 Source: patient Mode of arrival: ambulatory Limitations: no limitations History of Present Illness ED Provider: JACOBY RAO PA-C HPI Narrative: 34-year-old female with pmhx for polysubstance abuse, schizoaffective disorder and manic affective disorder presents to the ED today for evaluation of auditory hallucinations, SI and insomnia x 2-3 weeks. Reports command auditory hallucinations telling her to harm herself. She has plans to jump in front of moving vehicles. Decided to bring herself to the ED for further evaluation. Denies any VH/TH. Her main concern at present is her insomnia. Unable to sleep due to voices. She states she was recently admitted to psychiatric facility a few weeks ago. On discharge, her medications were sent to [facility]. She states she attempted to picking tech these medications however someone had already picked them up by the time she got to the pharmacy and this has not been taking them. Admits to using heroin yesterday. History of IV drug use, does not currently inject. No other illicit substance use. Admits to bingeing ETOH 2-3 days ago. Does not feel as though she is withdrawing. She is currently on 90 mg methadone daily. She was last dose this morning at [facility]. No physical complaints at present. Related Data Home Medications ?Medication ?Instructions ?Recorded ?Confirmed methadone 10 mg/mL oral concentrate 90 mg PO DAILY 10/31/24 10/31/24 Previous Rx's ?Medication ?Instructions ?Recorded clonidine HCl 0.1 mg tablet 0.1 mg PO TID PRN Anxiety 30 days 10/14/24 #60 tabs gabapentin 600 mg tablet 600 mg PO TID 30 days #90 tabs 10/14/24 hydroxyzine pamoate 50 mg capsule 50 mg PO TID PRN Anxiety 30 days 10/14/24 #90 caps nicotine (polacrilex) 4 mg gum 4 mg buccal Q2H PRN nicotine 10/14/24 cravings 30 days #100 ea nicotine 21 mg/24 hr daily 21 mg transdermal DAILY PRN 10/14/24 transdermal patch smoking cessation 28 days #28 ea olanzapine 10 mg tablet 10 mg PO BEDTIME 30 days #30 tabs 10/14/24 olanzapine 5 mg tablet 5 mg PO TID PRN agitation 30 days 10/14/24 #30 tabs quetiapine 50 mg tablet 50 mg PO BID PRN moderate Anxiety 10/14/24 30 days #30 tabs Allergies Allergy/AdvReac Type Severity Reaction Status Date / Time Sulfa (Sulfonamide Allergy Unknown Unknown Verified 10/31/24 10:38 Antibiotics) Review of Systems 2 Review of Systems: Yes all other systems are reviewed and are negative PMFSH Past Medical History Attestation statement: The following information was validated with the patient. Source: old records reviewed and nursing notes reviewed Medical History Schizoaffective disorder Bipolar disorder Polysubstance abuse Social History Social History Household Members: Unknown / Unable to assess Household Members Other:: Patient currently unable to participate, floridly psychotic Housing: Unknown / Unable to assess Housing Other:: Patient currently unable to participate, floridly psychotic Do you presently have visiting nurse or other home services: No Alcohol intake: never Patient Tobacco Use Status: Current everyday Tobacco user Tobacco use type: Cigarette Cigarette Packs Per Day: 2 Cigarettes Per Day: 40.0 Smoked in Last 30 Days: Yes Use of substances other than those prescribed or required for medical reasons: Yes Substance Use Type: Heroin Substance Use Frequency: Occasionally Last Used Substance: Days (ago) Advance Directives: No Advance Directives Information Provided: Yes Patient : No service: No Sexual orientation: Decline to Answer Physical Exam 2 Vital Signs: Vital Signs: Last Vital Signs Temp 97.8 F 11/02/24 20:26 Pulse 119 H 11/02/24 20:26 Resp 16 11/03/24 06:15 BP 121/92 H 11/02/24 20:26 Pulse Ox 98 11/02/24 20:26 O2 Del Method Room Air 11/02/24 20:26 BMI result Body Mass Index 27.1 Tachycardic to 102, vitals are otherwise WNL General: Unkempt Skin: Multiple track benoit noted to bilateral upper extremities. No open wounds Head: Normocephalic, atraumatic. EENT: Hearing is intact b/l. Conjunctiva clear. Sclera is anicteric. Moist mucous membranes.? Cardiac: Chest wall symmetric. RRR Lungs: Normal respiratory effort without accessory muscle use. CTA bilaterally Back: No midline spinous or paraspinal tenderness. No step off deformity. Ext: See above Neuro: AOx3. Normal speech. CN 2-12 grossly intact. Ambulating with steady gait. Psych: Appropriate mood and affect. Responds appropriately to questions. Course Course Course Narrative: 1255 -- CBC without leukocytosis or left shift. No anemia. H&H stable. Chemistry without acute electrolyte abnormality requiring intervention. No JEB. Liver function around baseline. Beta hCG undetectable. Not . Urine with trace leukocyte esterase, trace urine bacteria. Negative nitrites. 6-10 squamous epithelial cells. Likely contamination. Urine culture pending. Urine toxicology positive for opiates, methadone, fentanyl, cocaine, marijuana. Ethanol, acetaminophen and salicylates undetectable. > at this time, patient was medically cleared for care team evaluation. Placed in physician observation pending disposition. 1555 -- spoke with Angela from care team who has evaluated bennett. Plan is for patient to be inpatient bedsearch. phys obs continued pending placement. Reevaluation(s) Reevaluation #1: Time: 06:15 Date: 11/01/24 Provider: Miquel Garibay MD Patient in physician observation for psychiatric evaluation.? No acute events reported overnight. No current complaints. VS stable.? Patient is in bed search status/pending CARE team evaluation. Will continue to monitor. Reevaluation #2: Time: 08:43 Date: 11/02/24 Provider: Rios Cavanaugh MD Patient in physician observation for psychiatric evaluation.? No acute events reported overnight. No current complaints. VS stable.? Patient is in bed search status/pending CARE team evaluation. Will continue to monitor. Reevaluation #3: Time: 12:52 Date: 11/03/24 Provider: Rios Cavanaugh MD Patient in physician observation for psychiatric evaluation.? No acute events reported overnight. No current complaints. VS stable.? Patient is in bed search status/pending CARE team evaluation. Will continue to monitor. Additional Reevaluation(s): admited to psych Medications Administered Generic Name Dose Route Start Last Admin Trade Name Freq PRN Reason Stop Dose Admin Clonidine HCl 0.1 mg 10/31/24 17:06 11/03/24 08:48 Clonidine Hcl 0.1 Mg Tablet PO 0.1 mg TID PRN Administration Anxiety Protocol Gabapentin 600 mg 10/31/24 21:00 11/03/24 08:37 Gabapentin 600 Mg Tablet PO 600 mg TID DANE Administration Hydroxyzine HCl 50 mg 10/31/24 17:06 11/03/24 11:36 Hydroxyzine Hcl 50 Mg Tablet PO 50 mg TID PRN Administration Anxiety Lorazepam 2 mg 11/01/24 16:45 11/02/24 18:24 Lorazepam 1 Mg Tablet PO 2 mg QID PRN Administration Anxiety, agitation Methadone HCl 90 mg 11/01/24 09:00 11/03/24 08:42 Methadone Hcl 20 Mg/2 Ml Oral.Conc PO 90 mg DAILY DANE Administration Nicotine 21 mg 10/31/24 17:06 11/02/24 08:01 Nicotine 21 Mg Patch.Td24 TRANSDERMA 21 mg DAILY PRN Administration smoking cessation Nicotine Polacrilex 4 mg 10/31/24 17:06 11/03/24 08:45 Nicotine Polacrilex 2 Mg Gum BUCCAL 4 mg Q2H PRN Administration nicotine cravings Olanzapine 5 mg 10/31/24 17:06 11/02/24 10:53 Olanzapine 5 Mg Tablet PO 5 mg TID PRN Administration agitation Olanzapine 10 mg 10/31/24 21:00 11/02/24 20:22 Olanzapine 10 Mg Tablet PO 10 mg BEDTIME DANE Administration Quetiapine Fumarate 50 mg 10/31/24 17:06 11/03/24 11:36 Quetiapine Fumarate 50 Mg Tablet PO 50 mg BID PRN Administration moderate Anxiety Discontinued Medications Generic Name Dose Route Start Last Admin Trade Name Freq PRN Reason Stop Dose Admin Lorazepam 2 mg 11/01/24 12:01 11/01/24 12:08 Lorazepam 1 Mg Tablet PO 11/01/24 12:02 2 mg ONCE STA Administration Medical Decision Making Medical Decision Making MDM Narrative: 34-year-old female with pmhx for polysubstance abuse, schizoaffective disorder and manic affective disorder presents to the ED today for evaluation of auditory hallucinations, SI and insomnia x 2-3 weeks. Differential diagnosis includes anemia, electrolyte abnormality, mood disorder, anxiety, depression, SI, polysubstance abuse, etoh withdrawal, heroin withdrawal Presentation not consistent with acute organic causes to include delirium, drug induced disorders (acute ingestions; no evidence of toxidrome).? Given the H&P, I suspect this patient is suicidal and will require observation. Will consult care team to evaluate the patient. Will also obtain labs for medical clearance. Plan: labs, EKG, ASA/APAP levels, ETOH level, UDS, care team consultation, reassessment Differential Diagnosis Differential Diagnoses: The differential diagnosis associated with the presentation includes as above Lab Data MDM Lab Attestation statement: I reviewed the patient's lab results. as above 10/31/24 12:23 10/31/24 12:23 Labs: Lab Results 10/31/24 10/31/24 Range/Units 11:03 12:23 WBC 8.3 (4.8-10.8) X10*3/uL RBC 5.50 (4.20-5.50) X10*6/uL Hgb 15.5 (12.0-16.0) g/dl Hct 47.3 H (37.0-47.0) % MCV 86.0 (80.0-98.0) fL MCH 28.2 (27.0-33.0) pg MCHC 32.8 (31.0-35.0) g/dl RDW 13.4 (11.0-16.0) % Plt Count 344 (160-400) X10*3/uL MPV 8.9 L (9.4-12.3) fL Immature Gran % (Auto) 0.5 H (0.0-0.4) % Neut % (Auto) 69.6 (45-73) % Lymph % (Auto) 24.4 (20-40) % [place] % (Auto) 3.7 (2-11) % Eos % (Auto) 1.4 (0-4) % Baso % (Auto) 0.4 (0-2) % Lymph # (Auto) 2.0 (1.2-4.9) X10*3/uL [place] # (Auto) 0.3 (0.1-1.2) X10*3/uL Eos # (Auto) 0.1 (0.0-0.4) X10*3/uL Baso # (Auto) 0.0 (0.0-0.2) X10*3/uL Abs Immat Gran (auto) 0.04 H (0.00-0.03) X10*3/uL Absolute Neuts (auto) 5.8 (2.0-8.3) x10*3/uL Absolute Nucleated RBC 0.000 (0.0-0.012) X10*3/uL Nucleated RBC % (auto) 0.0 (0.0-0.2) /100WBC Sodium 138 (135-145) mmol/L Potassium 4.9 (3.3-5.1) mmol/L Chloride 101 (96-108) mmol/L Carbon Dioxide 30 H (22-29) mmol/L Anion Gap 12 (12-20) BUN 10 (9-16) mg/dL Creatinine 0.85 (0.5-1.4) mg/dL Estim Creat Clear Calc 82.2 Estimated GFR > 60 Random Glucose 91 (60-115) mg/dL Calcium 9.9 (8.4-10.2) mg/dL Total Bilirubin 0.4 (0.0-1.0) mg/dL AST 28 (5-31) U/L ALT 30 (0-31) U/L Alkaline Phosphatase 74 (39-117) U/L Total Protein 8.1 H (6.5-8.0) g/dL Albumin 4.4 (3.5-5.0) g/dL Beta HCG, Quant < 2 mIU/mL Urine Color Yellow Urine Appearance Cloudy Urine pH 7.5 (5.0-9.0) Ur Specific [place] 1.025 (1.005-1.025) Urine Protein Trace (Neg-Trace) mg/dL Urine Glucose (UA) Negative (Negative) mg/dL Urine Ketones Trace (Negative) mg/dL Urine Blood Negative (Negative) Urine Nitrite Negative (Negative) Ur Leukocyte Esterase Trace H (Negative) Urine RBC 0-2 (0-2) /HPF Urine WBC 0-5 (0-5) /HPF Ur Squamous Epith Cells 6-10 (0-2) /HPF Urine Bacteria Trace (None Seen) Hyaline Casts 0-2 (0-2) /LPF Salicylates < 5.0 L (15-30) mg/dL Urine Opiates Screen POSITIVE H (Not Detect) Ur Buprenorphine Scrn Not Detected (Not Detect) ng/mL Ur Oxycodone Screen Not Detected (Not Detect) ng/mL Urine Methadone Screen Positive H (Not Detect) ng/mL Urine Fentanyl Screen POSITIVE H (Not Detect) Acetaminophen < 3 (<30) mcg/mL Ur Barbiturates Screen Not Detected (Not Detect) Ur Phencyclidine Scrn Not Detected (Not Detect) Ur Amphetamines Screen Not Detected (Not Detect) U Benzodiazepines Scrn Not Detected (Not Detect) Urine Cocaine Screen POSITIVE H (Not Detect) U Marijuana (THC) Screen POSITIVE H (Not Detect) Ethyl Alcohol < 10 mg/dL External Record Review External record reviewed: Inpatient record Chronic Conditions Patient?s care impacted by: Other (Polysubstance abuse, schizoaffective disorder) Social Determinants Patient?s care significantly limited by Social Determinants of Health including: Other Social Determinant of Health Critical Care Time Critical Care Time Critical Care Time: No Discharge Plan Discharge Clinical Impression: Schizoaffective disorder, Suicidal ideation Patient Disposition: Admitted As Inpatient Interventions: [place]-Suicide Risk Severity Scale Last Done: 11/02/24 15:17
[2024-10-31 11:24] LABS: Bacteria Urine Trace (None Seen); Hyaline Casts Urine 0-2 /LPF (0-2); RBC Urine 0-2 /HPF (0-2); WBC Urine 0-5 /HPF (0-5)
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
[2024-10-31 11:49] VITALS: BP 116/60; PULSE 77; RESP 16; TEMP 37; O2SAT 97
[2024-10-31 12:29] LABS: Basophils Percent Auto 0.4 % (0-2); Eosinophils Absolute Auto 0.1 X10*3/uL (0.0-0.4); Eosinophils Percent Auto 1.4 % (0-4); Hematocrit 47.3 % (37.0-47.0); Hemoglobin 15.5 g/dl (12.0-16.0); Imm Gran Abs Auto 0.04 X10*3/uL (0.00-0.03); Imm Gran Pct Auto 0.5 % (0.0-0.4); Lymphocytes Percent Auto 24.4 % (20-40); MANUAL DIFF FLAG NO; Mean Corpuscular HGB Conc 32.8 g/dl (31.0-35.0); Mean Corpuscular Hemoglobin 28.2 pg (27.0-33.0); Mean Platelet Volume 8.9 fL (9.4-12.3); Monocytes Absolute Auto 0.3 X10*3/uL (0.1-1.2); Monocytes Percent Auto 3.7 % (2-11); Neutrophils Absolute Auto 5.8 x10*3/uL (2.0-8.3); Neutrophils Percent Auto 69.6 % (45-73); Platelet Count 344 X10*3/uL (160-400); Red Cell Distribution Width 13.4 % (11.0-16.0); White Blood Count 8.3 X10*3/uL (4.8-10.8)
--- NOTE | 2024-10-31 12:38 | HE.PHANOTE ---
Re: Methadone Last dose verified from Ashley Bray for Methadone 90 mg daily on 10/31/24@7667.
[2024-10-31 12:53] LABS: Acetaminophen LAB < 3 mcg/mL (<30); Alanine Aminotransferase 30 U/L (0-31); Albumin Level 4.4 g/dL (3.5-5.0); Anion Gap 12 (12-20); Aspartate Amino Transferase 28 U/L (5-31); Bilirubin Total 0.4 mg/dL (0.0-1.0); Blood Urea Nitrogen 10 mg/dL (9-16); Calcium 9.9 mg/dL (8.4-10.2); Carbon Dioxide 30 mmol/L (22-29); Chloride 101 mmol/L (96-108); Creatinine Clr Calc Pharmacy 82.2; Estimated Glomerular Filt Rate > 60; Ethanol < 10 mg/dL; Glucose Random 91 mg/dL (60-115); HCG Quantitative < 2 mIU/mL; Potassium 4.9 mmol/L (3.3-5.1); Salicylate < 5.0 mg/dL (15-30); Sodium 138 mmol/L (135-145); Total Protein 8.1 g/dL (6.5-8.0)
[2024-10-31 13:12] LABS: Alkaline Phosphatase 74 U/L (39-117)
--- NOTE | 2024-10-31 17:10 | PHA.MEDREC ---
Pharmacy Consult ? Medication Reconciliation Pharmacy has completed the medication reconciliation. Reviewed med rec done by nursing (Irina).
[2024-10-31] MEDS: hydrOXYzine HCL 50 MG TABLET PO (17:14)
[2024-10-31] MEDS: OLANZapine 5 MG TABLET PO (17:17)
[2024-10-31] MEDS: QUEtiapine Fumarate 50 MG TABLET PO (17:17)
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
[2024-10-31 21:28] VITALS: BP 104/47; PULSE 63; RESP 16; TEMP 37.2; O2SAT 95
[2024-10-31 22:25] VITALS: BP 105/53; PULSE 65
[2024-10-31] MEDS: Gabapentin 600 MG TABLET PO (22:28)
[2024-10-31] MEDS: OLANZapine 10 MG TABLET PO (22:28)
[2024-11-01 06:00] VITALS: BP 106/59; PULSE 54; RESP 16; TEMP 37.2; O2SAT 98
--- NOTE | 2024-11-01 07:11 | PC.NURSE ---
Addendum entered by Vangie Figueroa 11/01/24 07:15: Correction: Continue plan of care for [facility] Original Note: Assumed care of patient at 0645, patient appears to be in no apparent distress this am, sleeping, respirations even and unlabored. Continue plan of care for CARE team davina
[2024-11-01] MEDS: methADONE HCl 20 MG/2 ML ORAL.CONC 90 MG PO (09:46)
[2024-11-01] MEDS: OLANZapine 5 MG TABLET PO (09:47)
[2024-11-01] MEDS: Nicotine Polacrilex 2 MG GUM 4 MG BUCCAL ×5 (09:47→20:49)
[2024-11-01] MEDS: Gabapentin 600 MG TABLET PO ×3 (09:47→20:48)
[2024-11-01] MEDS: Nicotine 21 MG PATCH.TD24 TRANSDERMA (09:48)
--- NOTE | 2024-11-01 09:55 | PC.NURSE ---
pt very tearful, sobbing in bed. This RN attempted to support patient, pt requests to be left alone no one will understand . Pt comforted and encouraged to speak with this RN or other staff member if she feels comfortable doing so. Pt medicated for anxiety as well as daily medications
[2024-11-01] MEDS: QUEtiapine Fumarate 50 MG TABLET PO (10:55)
--- NOTE | 2024-11-01 11:25 | PC.NURSE ---
pt very anxious, pacing around [facility] pod, self-dialoguing in her room. pt provided with two PRNs, Seroquel and Zyprexa, no notable change in anxiety
--- NOTE | 2024-11-01 11:46 | PC.NURSE ---
Patient continues to be anxious, experiencing delusions that someone is going to harm her here. Pt visualized pacing in her room, attempting to self-soothe with minimal success. Pt does have PRN clonidine 0.1 mg however, patient's blood pressure too low for administration at this time MD Lani kirby texted for alterntive options
[2024-11-01 12:00] VITALS: BP 105/68; PULSE 99; RESP 16; O2SAT 97
[2024-11-01] MEDS: LORazepam 1 MG TABLET 2 MG PO ×2 (12:08→21:01)
[2024-11-01] MEDS: hydrOXYzine HCL 50 MG TABLET PO (14:15)
--- NOTE | 2024-11-01 14:19 | PC.NURSE ---
Addendum entered by Vangie Figueroa 11/01/24 15:17: Patient now sleeping, RR even and unlabored, no apparent distress noted Original Note: Pt reporting some relief of anxiety with ativan administration, PRN Hydroxyzine administered per pt request
--- NOTE | 2024-11-01 20:32 | PC.NURSE ---
pt provided with snacks and carmine canelo as requested
[2024-11-01] MEDS: OLANZapine 10 MG TABLET PO (20:48)
--- NOTE | 2024-11-01 20:50 | PC.NURSE ---
pt given PRN nicotine gum per request
[2024-11-01 23:32] VITALS: BP 112/67; PULSE 105; RESP 18; TEMP 36.8; O2SAT 99
--- NOTE | 2024-11-02 06:35 | PC.NURSE ---
pt resting off/on throughout the night, food/drink provided frequently as requested
--- NOTE | 2024-11-02 07:12 | PC.NURSE ---
Assumed care of patient at 0645, patient appears to be sleeping, respirations even and unlabored, no apparent distress noted. Continue plan of care for [facility]
[2024-11-02] MEDS: Gabapentin 600 MG TABLET PO ×3 (08:01→20:22)
[2024-11-02] MEDS: methADONE HCl 20 MG/2 ML ORAL.CONC 90 MG PO (08:01)
[2024-11-02] MEDS: LORazepam 1 MG TABLET 2 MG PO ×2 (08:01→18:24)
[2024-11-02] MEDS: Nicotine Polacrilex 2 MG GUM 4 MG BUCCAL ×3 (08:01→18:25)
[2024-11-02] MEDS: Nicotine 21 MG PATCH.TD24 TRANSDERMA (08:01)
[2024-11-02 10:53] VITALS: BP 112/68; PULSE 106; RESP 16; TEMP 37.2; O2SAT 98
[2024-11-02] MEDS: OLANZapine 5 MG TABLET PO (10:53)
[2024-11-02] MEDS: cloNIDine HCL 0.1 MG TABLET PO ×2 (10:53→20:23)
[2024-11-02 15:22] VITALS: BP 103/53; PULSE 82; RESP 16; TEMP 36.8; O2SAT 98
[2024-11-02] MEDS: OLANZapine 10 MG TABLET PO (20:22)
[2024-11-02 20:23] VITALS: BP 121/92
[2024-11-02] MEDS: QUEtiapine Fumarate 50 MG TABLET PO (20:23)
[2024-11-02 20:26] VITALS: BP 121/92; PULSE 119; RESP 18; TEMP 36.6; O2SAT 98
[2024-11-03 06:15] VITALS: RESP 16
--- NOTE | 2024-11-03 06:39 | PC.NURSE ---
Patient slept through the night, no distress observed/reported, meds and meals compliant, disposition per care team is section 12 inpatient bed search, no behavior and safety concerns at this time, will continue to monitor.
[2024-11-03] MEDS: Gabapentin 600 MG TABLET PO ×3 (08:37→20:54)
[2024-11-03] MEDS: methADONE HCl 20 MG/2 ML ORAL.CONC 90 MG PO (08:42)
[2024-11-03] MEDS: Nicotine Polacrilex 2 MG GUM 4 MG BUCCAL ×4 (08:45→20:54)
[2024-11-03] MEDS: cloNIDine HCL 0.1 MG TABLET PO ×2 (08:48→19:00)
--- NOTE | 2024-11-03 09:07 | ECG_ITS ---
Test Reason : check qtc Blood Pressure : */* mmHG Vent. Rate : 66 BPM Atrial Rate : 66 BPM P-R Int : 136 ms QRS Dur : 82 ms QT Int : 402 ms P-R-T Axes : 54 42 24 degrees QTcB Int : 421 ms Normal sinus rhythm Normal ECG When compared with ECG of 11-Oct-2024 09:59, No significant change was found Referred By: Poornima Blunt Electronically Signed By: REJI MCCLURE
--- NOTE | 2024-11-03 10:56 | PC.NURSE ---
patient medicated per MAR with prn zofran as requested
[2024-11-03] MEDS: hydrOXYzine HCL 50 MG TABLET PO (11:36)
[2024-11-03] MEDS: QUEtiapine Fumarate 50 MG TABLET PO ×2 (11:36→20:54)
--- NOTE | 2024-11-03 11:40 | PC.NURSE ---
patient medicated per MAR with PRN for increased anxiety and crying.
--- NOTE | 2024-11-03 12:43 | PC.NURSE ---
report provided for admission to
[2024-11-03 13:26] VITALS: BP 129/60; PULSE 73; RESP 16; TEMP 37.2; O2SAT 97
[2024-11-03] MEDS: Nicotine 21 MG PATCH.TD24 TRANSDERMA (13:30)
[2024-11-03] MEDS: LORazepam 1 MG TABLET 2 MG PO ×2 (15:06→20:53)
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
[2024-11-03] MEDS: Acetaminophen 325 MG TABLET 650 MG PO (16:59)
[2024-11-03 19:00] VITALS: BP 119/67
[2024-11-03 20:00] VITALS: BP 116/69; PULSE 75; RESP 16; TEMP 36.9; O2SAT 98
[2024-11-03] MEDS: OLANZapine 10 MG TABLET PO (20:54)
[2024-11-04] MEDS: methADONE HCl 20 MG/2 ML ORAL.CONC 90 MG PO (07:56)
[2024-11-04] MEDS: Gabapentin 600 MG TABLET PO ×3 (07:59→20:50)
[2024-11-04 08:00] VITALS: BP 117/65; PULSE 82; TEMP 36.6; O2SAT 98
[2024-11-04 08:56] LABS: Estimated Average Glucose 103 mg/dL; Hemoglobin A1C 118.8433 umol/L; Hemoglobin A1c % 5.2 % (<6.0); Total Hemoglobin (HGBA1C) 3574.7035 umol/L
[2024-11-04 09:10] LABS: Cholesterol 209 mg/dL (<200); HDL Cholesterol 33 mg/dL (>40); Magnesium 1.7 mg/dL (1.6-2.6); Triglycerides 607 mg/dL (<150)
[2024-11-04 09:31] LABS: Free T4 (Free Thyroxine) 1.03 ng/dL (0.71-1.85); Thyroid Stimulating Hormone 1.29 uIU/mL (0.32-4.0)
[2024-11-04 09:43] LABS: Folate 5.2 ng/mL (> or = 4.0); Vitamin B12 296 pg/mL (200-900)
--- NOTE | 2024-11-04 10:37 | P.HPPS_ITS ---
HPI Date of Service: 11/04/24 Chief Complaint: Schizoaffective Disorder Polysubstance use disorde Sources of Information: patient interviewed, chart reviewed and crisis/core team assessment reviewed HPI Subjective Notes: [place] Warning and Conditional Voluntary Healthcare Proxy: No Guardianship: No Medical Problems Affecting Mental Status: No Narrative: HPI: 34-year-old , Palestinian-speaking female with history of schizoaffective disorder and polysubstance abuse who who presents to [facility] on 11/03/2024 for suicidal ideation with plan to jump into traffic to harm herself during which time patient endorsed CAH and significant sleep disturbances. Patient notes that she presented to the ED for CAH to jump into traffic to kill herself. She reports history of anxiety, panic disorder, depression, and insomnia. She notes that she has been experiencing insomnia for her entire life. She would awake for several days before falling asleep. The maximum day she has been awake was 8 days. She has always has low energy. She notes that anxiety and insomnia are the source of her depression. She currently denies SI/HI, AVH. She notes that her symptoms are currently well controlled on current treatment regimen. She wants to continue current regimen. Pt seen at 12:00 on 11/04/24 Past Psychiatric History: h/o multiple psychiatric admissions, [facility] outpaitent, ? therapy ? sub abuse treatment - hx gabapentin, seroquel and ? zopidem last psych hosp was [facility] recently inc gabapentin to 800mg tid Medical Evaluation Reviewed: Yes [facility] Medical History Schizoaffective disorder Bipolar disorder Polysubstance abuse Family History: pt denies knowing any Social History: says has place to live, says has friends, and family- has 4 siblings but she is not connected with them, she is also not connected to her parents Substance History: She states that she rarely drinks alcohol. However, she has been a recovering heroin user who relapsed after using 2 bags 2 weeks ago. She also has history of crack and methamphetamine use Trauma History: not obtained Diagnostics Vital Signs (24Hr): Vital Signs - 24 hr 11/03/24 13:26 11/03/24 19:00 11/03/24 20:00 Temperature 98.9 F 98.4 F Pulse Rate 73 75 Respiratory Rate 16 16 Blood Pressure 129/60 119/67 116/69 Pulse Oximetry 97 98 Oxygen Delivery Method Room Air Room Air 11/04/24 08:00 Temperature 97.8 F Pulse Rate 82 Respiratory Rate Blood Pressure 117/65 Pulse Oximetry 98 Oxygen Delivery Method Room Air BMI result Body Mass Index 27.1 Labs 10/31/24 12:23 10/31/24 12:23 Labs: Laboratory Results - last 48 hr 11/04/24 08:30 Estimat Average Glucose 103 Hemoglobin A1c % 5.2 Magnesium 1.7 Triglycerides 607 H Cholesterol 209 H LDL Cholesterol, Calc TNP HDL Cholesterol 33 L Vitamin B12 296 Folate 5.2 TSH 1.29 Free T4 1.03 Meds/Allergies Meds Home Medications ?Medication ?Instructions ?Recorded ?Confirmed ?Type methadone 10 mg/mL oral concentrate 90 mg PO DAILY 10/31/24 10/31/24 History Allergies Allergies Allergy/AdvReac Type Severity Reaction Status Date / Time Sulfa (Sulfonamide Allergy Unknown Unknown Verified 10/31/24 10:38 Antibiotics) Mental Status Exam Mental Status Exam Narrative: Mental Status Exam Narrative: Appearance: Casually dressed in hospital gown Behavior: Calm and cooperative throughout the interview. Eye contact is appropriate, and there are no signs of psychomotor agitation or retardation Speech: Normal volume and prosody Thought process logical and goal-directed Thought content: Future oriented no self-harming thoughts Mood: Anxious Affect: Constricted, mood-congruent SI:denies HI:denies VH/AH:none Delusions: None Insight/judgment: Good insight and judgment Memory/cog: Alert, oriented x 4. grossly intact to conversational testing Assessment & Plan Assessment & Plan (1) Schizoaffective disorder, depressive type: Status: Acute Code(s): F25.1 - Schizoaffective disorder, depressive type Assessment and Plan: 34-year-old , Palestinian-speaking female with history of schizoaffective disorder and polysubstance abuse who who presents to [facility] on 11/03/[place]24 for suicidal ideation with plan to jump into traffic to harm herself during which time patient endorsed CAH and significant sleep disturbances. Patient notes that she presented to the ED for CAH to jump into traffic to kill herself. She reports history of anxiety, panic disorder, depression, and insomnia. She notes that she has been experiencing insomnia for her entire life. She would awake for several days before falling asleep. The maximum day she has been awake was 8 days. She has always has low energy. She notes that anxiety and insomnia are the source of her depression. She currently denies SI/HI, AVH. She notes that her symptoms are currently well controlled on current treatment regimen. She wants to continue current regimen. Formulation/Clinical reasoning: Pt presents with CAH which seem chronic...Will dx with schizoaffective disorder, depressive type due to her presenting symptoms including chronic low energy. She will continue current treatment regimen. PLAN: Admit to M5. CV 15 minutes check. Continue current regime. Diagnostics as needed. Collateral contact. Encouraged full milieu. Discharge planning. Patient educated on: therapeutic strategies Reason for continued inpatient stay Substantial Risk for: med/psych decompensation Statement Statement: I have reviewed the history and physical and performed a pertinent examination on my patient. No changes have occurred unless specified. If the History and Physical was not performed prior to admission, the Hospitalist's service will be consulted for completing the admission physical. Time Spent With Patient Time: Total time managing care of this patient today ____ minutes.
[2024-11-04] MEDS: LORazepam 1 MG TABLET 2 MG PO ×2 (11:10→17:01)
[2024-11-04] MEDS: Nicotine 21 MG PATCH.TD24 TRANSDERMA (11:16)
[2024-11-04] MEDS: Nicotine Polacrilex 2 MG GUM 4 MG BUCCAL ×3 (11:16→20:54)
[2024-11-04 15:19] VITALS: BP 178/89
[2024-11-04] MEDS: cloNIDine HCL 0.1 MG TABLET PO (15:19)
[2024-11-04 20:00] VITALS: BP 122/77; PULSE 92; TEMP 36.9; O2SAT 98
[2024-11-04] MEDS: OLANZapine 10 MG TABLET PO (20:50)
[2024-11-04] MEDS: QUEtiapine Fumarate 50 MG TABLET PO (20:50)
[2024-11-04] MEDS: traZODone HCL 50 MG TABLET PO (20:53)
[2024-11-05 07:00] VITALS: BMI 29.7
[2024-11-05 08:00] VITALS: BP 103/55; PULSE 87; RESP 14; TEMP 36.8; O2SAT 97
[2024-11-05] MEDS: methADONE HCl 20 MG/2 ML ORAL.CONC 90 MG PO (08:01)
[2024-11-05] MEDS: Gabapentin 600 MG TABLET PO ×3 (08:21→20:56)
[2024-11-05] MEDS: Nicotine Polacrilex 2 MG GUM 4 MG BUCCAL ×4 (08:57→21:13)
[2024-11-05] MEDS: Nicotine 21 MG PATCH.TD24 TRANSDERMA (08:59)
--- NOTE | 2024-11-05 11:36 | P.PNPSI_ITS ---
Subjective Subjective Date of Service: 11/05/24 Reason For Visit: Schizoaffective Disorder Polysubstance use disorde Subjective Notes: Conditional Voluntary Interim History: Met with patient; discussed with team. Patient notes that she continues to experience anxiety symptoms which waxes and wanes. She also feels angry. Her symptoms are chronic but worsened recently. Her current regimen is effective in controlling her symptoms. She has been sleeping throughout the night. She denies current SI/HI/AVH. Medication Compliance: Yes Side effects from medications: No Attending Groups: Yes Review of Systems Acute medical concerns: No Medical Review of Systems: unchanged Review of Systems Review of Systems Yes all other systems are reviewed and are negative Mental Status Exam Mental Status Exam Narrative: Mental Status Exam Narrative: Appearance: Casually dressed Behavior: Calm and cooperative throughout the interview. Minimal eye contact, and there are no signs of psychomotor agitation or retardation Speech: Normal volume and prosody Thought process logical and goal-directed Thought content: Future oriented no self-harming thoughts Mood: Anxious and angry Affect: Flat, mood-congruent SI:denies HI:denies VH/AH:none Delusions: None Insight/judgment: Good insight and judgment Memory/cog: Alert, oriented x 4. grossly intact to conversational testing Diagnostics Vital Signs (24Hr): Vital Signs - 24 hr 11/04/24 15:19 11/04/24 20:00 11/05/24 08:00 Temperature 98.4 F 98.2 F Pulse Rate 92 87 Respiratory Rate 14 Blood Pressure 178/89 H 122/77 103/55 L Pulse Oximetry 98 97 Oxygen Delivery Method Room Air Room Air BMI result Body Mass Index 29.7 Labs 10/31/24 12:23 10/31/24 12:23 Labs: Laboratory Results - last 48 hr 11/04/24 08:30 Estimat Average Glucose 103 Hemoglobin A1c % 5.2 Magnesium 1.7 Triglycerides 607 H Cholesterol 209 H LDL Cholesterol, Calc TNP HDL Cholesterol 33 L Vitamin B12 296 Folate 5.2 TSH 1.29 Free T4 1.03 Medications Medications Current Medications Acetaminophen (Acetaminophen 325 Mg Tablet) 650 mg PO Q6H PRN PRN Reason: Headache/Pain, Scale 1-10 Last Admin: 11/03/24 16:59 Dose: 650 mg Al Hydroxide/Mg Hydroxide (Magnesium Hydrox/Alum Hydrox 30 Ml Oral.Susp) 30 ml PO Q6H PRN PRN Reason: Heartburn/Nausea Clonidine HCl (Clonidine Hcl 0.1 Mg Tablet) 0.1 mg PO TID PRN; Protocol PRN Reason: Anxiety Last Admin: 11/04/24 15:19 Dose: 0.1 mg Gabapentin (Gabapentin 600 Mg Tablet) 600 mg PO TID [facility] Last Admin: 11/05/24 08:21 Dose: 600 mg Hydroxyzine HCl (Hydroxyzine Hcl 50 Mg Tablet) 50 mg PO TID PRN PRN Reason: Anxiety Last Admin: 11/03/24 11:36 Dose: 50 mg Hydroxyzine HCl (Hydroxyzine Hcl 25 Mg Tablet) 25 mg PO Q6H PRN PRN Reason: mild anxiety Lorazepam (Lorazepam 1 Mg Tablet) 2 mg PO QID PRN PRN Reason: Anxiety, agitation Last Admin: 11/04/24 17:01 Dose: 2 mg Magnesium Hydroxide (Milk Of Magnesia 30 Ml Oral.Susp) 30 ml PO DAILY PRN PRN Reason: Constipation Methadone HCl (Methadone Hcl 20 Mg/2 Ml Oral.Conc) 90 mg PO DAILY [facility] Last Admin: 11/05/24 08:01 Dose: 90 mg Nicotine (Nicotine 21 Mg Patch.Td24) 21 mg TRANSDERMA DAILY PRN PRN Reason: smoking cessation Last Admin: 11/05/24 08:59 Dose: 21 mg Nicotine Polacrilex (Nicotine Polacrilex 2 Mg Gum) 4 mg BUCCAL Q2H PRN PRN Reason: nicotine cravings Last Admin: 11/05/24 08:57 Dose: 4 mg Olanzapine (Olanzapine 5 Mg Tablet) 5 mg PO TID PRN PRN Reason: agitation Last Admin: 11/02/24 10:53 Dose: 5 mg Olanzapine (Olanzapine 10 Mg Tablet) 10 mg PO BEDTIME [facility] Last Admin: 11/04/24 20:50 Dose: 10 mg Quetiapine Fumarate (Quetiapine Fumarate 50 Mg Tablet) 50 mg PO BID PRN PRN Reason: moderate Anxiety Last Admin: 11/04/24 20:50 Dose: 50 mg Trazodone HCl (Trazodone Hcl 50 Mg Tablet) 50 mg PO BEDTIME MRX1 PRN PRN Reason: Insomnia Last Admin: 11/04/24 20:53 Dose: 50 mg Allergies Allergies Allergy/AdvReac Type Severity Reaction Status Date / Time Sulfa (Sulfonamide Allergy Unknown Unknown Verified 10/31/24 10:38 Antibiotics) Assessment & Plan Assessment & Plan (1) Schizoaffective disorder, depressive type: Status: Acute Code(s): F25.1 - Schizoaffective disorder, depressive type Plan 11/05: Patient notes that she continues to experience anxiety symptoms which waxes and wanes. She also feels angry. Her symptoms are chronic but worsened recently. Her current regimen is effective in controlling her symptoms. She has been sleeping throughout the night. She denies current SI/HI/AVH. PLAN: Admit to M5. CV 15 minutes check. Clonidine changed from 0.1 mg TID PRN to 0.1mg BID to target anxiety. Continue remainder of regime. Diagnostics as needed. Collateral contact. Encouraged full milieu. Discharge planning. Patient educated on: therapeutic strategies Informed Consent: understands Reason for continued inpatient stay Substantial Risk for: rapid decompensation Time Spent With Patient Time: Total time managing care of this patient today ____ minutes.
[2024-11-05] MEDS: LORazepam 1 MG TABLET 2 MG PO ×2 (14:53→20:57)
[2024-11-05 20:00] VITALS: BP 125/59; PULSE 97; RESP 16; TEMP 37; O2SAT 98
[2024-11-05 20:56] VITALS: BP 150/80
[2024-11-05] MEDS: cloNIDine HCL 0.1 MG TABLET PO (20:56)
[2024-11-05] MEDS: traZODone HCL 50 MG TABLET PO (20:56)
[2024-11-05] MEDS: OLANZapine 10 MG TABLET PO (20:57)
[2024-11-05] MEDS: hydrOXYzine HCL 50 MG TABLET PO (20:57)
[2024-11-05] MEDS: QUEtiapine Fumarate 50 MG TABLET PO (20:57)
--- NOTE | 2024-11-06 02:59 | PC.NURSE ---
Patient had signed 3 day notice dated 11/04/24, but no witness had signed the paper. Patient kept the 3 day notice and will let someone see it on Saturday.
[2024-11-06] MEDS: Nicotine Polacrilex 2 MG GUM 4 MG BUCCAL ×4 (07:17→20:57)
[2024-11-06 07:39] VITALS: BP 97/51; PULSE 78; TEMP 36.4; O2SAT 98
[2024-11-06] MEDS: methADONE HCl 20 MG/2 ML ORAL.CONC 90 MG PO (07:44)
[2024-11-06] MEDS: Gabapentin 600 MG TABLET PO ×3 (08:56→20:14)
[2024-11-06] MEDS: LORazepam 1 MG TABLET 2 MG PO ×2 (09:06→14:58)
[2024-11-06] MEDS: hydrOXYzine HCL 50 MG TABLET PO (09:07)
--- NOTE | 2024-11-06 09:32 | PC.NURSE ---
Late entry: Late documentation entered for lorazepam 2mg administered om 11/04/24 at 11:10am. Pharmacy and tooling supervisor notified.
--- NOTE | 2024-11-06 09:40 | P.PNPSI_ITS ---
Subjective Subjective Date of Service: 11/06/24 Reason For Visit: Schizoaffective Disorder Polysubstance use disorde Subjective Notes: Conditional Voluntary Healthcare Proxy: No Guardianship: No Medical Problems Affecting Mental Status: No Interim History: I am having a bad day. I miss my ex boyfriend . Pt in bed, not wanting too much interaction today. Reports meds are tolerated and effective, agrees she needs to apply to programs. Diagnostics review, triglycerides significantly high. Will trial Lopid Medication Compliance: Yes Side effects from medications: No Attending Groups: Intermittent Review of Systems Acute medical concerns: No Review of Systems Review of Systems No Mental Status Exam Mental Status Exam Patient Appearance: Fatigued Patient Orientation: Person, Place, Time and Situation Level of Consciousness: Alert Patient Behavior: Fatigued and Poor Eye Contact Mood Description: Depressed Affect Description: Depressed and Flat Patient Cognition Impaired: No Ability to Follow Directions: Good Speech Pattern: Spontaneous Speech Memory Description: Episodic Impaired Hallucinations: None Delusions: Not Present Thought Process: Distracted and Rumination Thought Content: positive for Circumstantial and positive for Perseveration Depressive Symptoms: Feelings of Worthlessness, Hopelessness, Unhappiness, Increased Fatigue, Low Self Esteem and Loss of Energy Judgement: Fair Diagnostics Vital Signs (24Hr): Vital Signs - 24 hr 11/05/24 20:00 11/05/24 20:56 11/06/24 07:39 Temperature 98.6 F 97.5 F Pulse Rate 97 78 Respiratory Rate 16 Blood Pressure 125/59 L 150/80 H 97/51 L Pulse Oximetry 98 98 Oxygen Delivery Method Room Air Room Air BMI result Body Mass Index 29.7 Labs 10/31/24 12:23 10/31/24 12:23 Labs: Laboratory Results - last 48 hr 11/04/24 08:30 Vitamin B12 296 Folate 5.2 Medications Medications Current Medications Acetaminophen (Acetaminophen 325 Mg Tablet) 650 mg PO Q6H PRN PRN Reason: Headache/Pain, Scale 1-10 Last Admin: 11/03/24 16:59 Dose: 650 mg Al Hydroxide/Mg Hydroxide (Magnesium Hydrox/Alum Hydrox 30 Ml Oral.Susp) 30 ml PO Q6H PRN PRN Reason: Heartburn/Nausea Clonidine HCl (Clonidine Hcl 0.1 Mg Tablet) 0.1 mg PO BID [facility]; Protocol Last Admin: 11/06/24 09:06 Dose: Not Given Gabapentin (Gabapentin 600 Mg Tablet) 600 mg PO TID [facility] Last Admin: 11/06/24 08:56 Dose: 600 mg Hydroxyzine HCl (Hydroxyzine Hcl 50 Mg Tablet) 50 mg PO TID PRN PRN Reason: Anxiety Last Admin: 11/06/24 09:07 Dose: 50 mg Hydroxyzine HCl (Hydroxyzine Hcl 25 Mg Tablet) 25 mg PO Q6H PRN PRN Reason: mild anxiety Lorazepam (Lorazepam 1 Mg Tablet) 2 mg PO QID PRN PRN Reason: Anxiety, agitation Last Admin: 11/06/24 09:06 Dose: 2 mg Magnesium Hydroxide (Milk Of Magnesia 30 Ml Oral.Susp) 30 ml PO DAILY PRN PRN Reason: Constipation Methadone HCl (Methadone Hcl 20 Mg/2 Ml Oral.Conc) 90 mg PO DAILY [facility] Last Admin: 11/06/24 07:44 Dose: 90 mg Nicotine (Nicotine 21 Mg Patch.Td24) 21 mg TRANSDERMA DAILY PRN PRN Reason: smoking cessation Last Admin: 11/05/24 08:59 Dose: 21 mg Nicotine Polacrilex (Nicotine Polacrilex 2 Mg Gum) 4 mg BUCCAL Q2H PRN PRN Reason: nicotine cravings Last Admin: 11/06/24 07:17 Dose: 4 mg Olanzapine (Olanzapine 5 Mg Tablet) 5 mg PO TID PRN PRN Reason: agitation Last Admin: 11/02/24 10:53 Dose: 5 mg Olanzapine (Olanzapine 10 Mg Tablet) 10 mg PO BEDTIME [facility] Last Admin: 11/05/24 20:57 Dose: 10 mg Quetiapine Fumarate (Quetiapine Fumarate 50 Mg Tablet) 50 mg PO BID PRN PRN Reason: moderate Anxiety Last Admin: 11/05/24 20:57 Dose: 50 mg Trazodone HCl (Trazodone Hcl 50 Mg Tablet) 50 mg PO BEDTIME MRX1 PRN PRN Reason: Insomnia Last Admin: 11/05/24 20:56 Dose: 50 mg Allergies Allergies Allergy/AdvReac Type Severity Reaction Status Date / Time Sulfa (Sulfonamide Allergy Unknown Unknown Verified 10/31/24 10:38 Antibiotics) Assessment & Plan Assessment & Plan (1) Schizoaffective disorder, depressive type: Status: Acute Code(s): F25.1 - Schizoaffective disorder, depressive type Plan 11/05: Patient notes that she continues to experience anxiety symptoms which waxes and wanes. She also feels angry. Her symptoms are chronic but worsened recently. Her current regimen is effective in controlling her symptoms. She has been sleeping throughout the night. She denies current SI/HI/AVH. 11/06- Denies SI,HI,AH,VH. Today she reports increase in depressive sx as she is missing her ex. Triglycerides are high- Lopid 600 mg bid ac trial PLAN: Admit to M5. CV 15 minutes check. Clonidine changed from 0.1 mg TID PRN to 0.1mg BID to target anxiety. Continue remainder of regime. Diagnostics as needed. Collateral contact. Encouraged full milieu. Discharge planning. Reason for continued inpatient stay Substantial Risk for: rapid decompensation Time Spent With Patient Time: Total time managing care of this patient today ____ minutes.
[2024-11-06] MEDS: QUEtiapine Fumarate 50 MG TABLET PO (11:57)
[2024-11-06 20:00] VITALS: BP 103/47; PULSE 82; TEMP 36.6; O2SAT 96
[2024-11-06 20:14] VITALS: BP 103/47
[2024-11-06] MEDS: cloNIDine HCL 0.1 MG TABLET PO (20:14)
[2024-11-06] MEDS: OLANZapine 10 MG TABLET PO (20:14)
[2024-11-06] MEDS: traZODone HCL 50 MG TABLET PO (20:14)
[2024-11-07] MEDS: gemfibroziL 600 MG TABLET PO ×2 (06:39→15:49)
[2024-11-07] MEDS: methADONE HCl 20 MG/2 ML ORAL.CONC 90 MG PO (07:44)
[2024-11-07] MEDS: Nicotine Polacrilex 2 MG GUM 4 MG BUCCAL ×4 (07:46→20:30)
[2024-11-07] MEDS: cloNIDine HCL 0.1 MG TABLET PO ×3 (08:24→20:29)
[2024-11-07] MEDS: Gabapentin 600 MG TABLET PO ×2 (08:24→14:14)
[2024-11-07 08:26] VITALS: BP 97/53; PULSE 86; RESP 18; TEMP 36.5; O2SAT 97
--- NOTE | 2024-11-07 09:05 | HO.PSYCHPN ---
Subjective Subjective Date of Service: 11/07/24 Reason For Visit: Schizoaffective Disorder Polysubstance use disorde Interim History: met with patient; discussed with team tearful; panic at times; talked about struggles with loneliness and feeling abandoned by family. No AVH. To help w/ anxiety, Discussed medications and agreed to increase Gabapentin back to 800mg tid (up from 600mg); also to make scheduled Clonidine TID Mental Status Exam Mental Status Exam Patient Appearance: Fatigued Patient Orientation: Person, Place, Time and Situation Level of Consciousness: Alert Patient Behavior: Appropriate and Good Eye Contact Mood Description: Depressed Affect Description: Depressed Patient Cognition Impaired: No Ability to Follow Directions: Good Speech Pattern: Spontaneous Speech Memory Description: Episodic Impaired Hallucinations: Auditory (mild) Delusions: Not Present Thought Process: Rumination and Goal Oriented Thought Content: positive for Perseveration Depressive Symptoms: Feelings of Worthlessness, Hopelessness, Unhappiness, Increased Fatigue, Low Self Esteem and Loss of Energy Judgement: Fair Diagnostics Vital Signs (24Hr): Vital Signs - 24 hr 11/06/24 20:00 11/06/24 20:14 11/07/24 08:26 Temperature 97.8 F 97.7 F Pulse Rate 82 86 Respiratory Rate 18 Blood Pressure 103/47 L 103/47 L 97/53 L Pulse Oximetry 96 97 Oxygen Delivery Method Room Air Room Air BMI result Body Mass Index 29.7 Labs 10/31/24 12:23 10/31/24 12:23 Medications Medications Current Medications Acetaminophen (Acetaminophen 325 Mg Tablet) 650 mg PO Q6H PRN PRN Reason: Headache/Pain, Scale 1-10 Last Admin: 11/03/24 16:59 Dose: 650 mg Al Hydroxide/Mg Hydroxide (Magnesium Hydrox/Alum Hydrox 30 Ml Oral.Susp) 30 ml PO Q6H PRN PRN Reason: Heartburn/Nausea Clonidine HCl (Clonidine Hcl 0.1 Mg Tablet) 0.1 mg PO BID [facility]; Protocol Last Admin: 11/07/24 08:24 Dose: 0.1 mg Gabapentin (Gabapentin 600 Mg Tablet) 600 mg PO TID [facility] Last Admin: 11/07/24 08:24 Dose: 600 mg Gemfibrozil (Gemfibrozil 600 Mg Tablet) 600 mg PO BIDAC [facility] Last Admin: 11/07/24 06:39 Dose: 600 mg Hydroxyzine HCl (Hydroxyzine Hcl 50 Mg Tablet) 50 mg PO TID PRN PRN Reason: Anxiety Last Admin: 11/06/24 09:07 Dose: 50 mg Hydroxyzine HCl (Hydroxyzine Hcl 25 Mg Tablet) 25 mg PO Q6H PRN PRN Reason: mild anxiety Lorazepam (Lorazepam 1 Mg Tablet) 2 mg PO QID PRN PRN Reason: Anxiety, agitation Last Admin: 11/06/24 14:58 Dose: 2 mg Magnesium Hydroxide (Milk Of Magnesia 30 Ml Oral.Susp) 30 ml PO DAILY PRN PRN Reason: Constipation Methadone HCl (Methadone Hcl 20 Mg/2 Ml Oral.Conc) 90 mg PO DAILY [facility] Last Admin: 11/07/24 07:44 Dose: 90 mg Nicotine (Nicotine 21 Mg Patch.Td24) 21 mg TRANSDERMA DAILY PRN PRN Reason: smoking cessation Last Admin: 11/05/24 08:59 Dose: 21 mg Nicotine Polacrilex (Nicotine Polacrilex 2 Mg Gum) 4 mg BUCCAL Q2H PRN PRN Reason: nicotine cravings Last Admin: 11/07/24 07:46 Dose: 4 mg Olanzapine (Olanzapine 5 Mg Tablet) 5 mg PO TID PRN PRN Reason: agitation Last Admin: 11/02/24 10:53 Dose: 5 mg Olanzapine (Olanzapine 10 Mg Tablet) 10 mg PO BEDTIME [facility] Last Admin: 11/06/24 20:14 Dose: 10 mg Quetiapine Fumarate (Quetiapine Fumarate 50 Mg Tablet) 50 mg PO BID PRN PRN Reason: moderate Anxiety Last Admin: 11/06/24 11:57 Dose: 50 mg Trazodone HCl (Trazodone Hcl 50 Mg Tablet) 50 mg PO BEDTIME MRX1 PRN PRN Reason: Insomnia Last Admin: 11/06/24 20:14 Dose: 50 mg Allergies Allergies Allergy/AdvReac Type Severity Reaction Status Date / Time Sulfa (Sulfonamide Allergy Unknown Unknown Verified 10/31/24 10:38 Antibiotics) Assessment & Plan Assessment & Plan (1) Schizoaffective disorder, depressive type: Status: Acute Code(s): F25.1 - Schizoaffective disorder, depressive type (2) Opiate abuse, episodic: Status: Acute Code(s): F11.10 - Opioid abuse, uncomplicated Plan 11/05: Patient notes that she continues to experience anxiety symptoms which waxes and wanes. She also feels angry. Her symptoms are chronic but worsened recently. Her current regimen is effective in controlling her symptoms. She has been sleeping throughout the night. She denies current SI/HI/AVH. 11/06- Denies SI,HI,AH,VH. Today she reports increase in depressive sx as she is missing her ex. Triglycerides are high- Lopid 600 mg bid ac trial 11/07 tearful; panic at times; talked about struggles with loneliness and feeling abandoned by family. No AVH. To help w/ anxiety, Discussed medications and agreed to increase Gabapentin back to 800mg tid (up from 600mg); also to make scheduled Clonidine TID PLAN: Admit to M5. CV 15 minutes check. Increased Gabapentin to 800mg tid Clonidine changed from 0.1 mg TID scheduled (was BID scheduled) to target anxiety. Continue remainder of regime. Diagnostics as needed. Collateral contact. Encouraged full milieu. Discharge planning. Patient educated on: diagnosis, medication risk/benefits and therapeutic strategies Informed Consent: understands Reason for continued inpatient stay Substantial Risk for: rapid decompensation Time Spent With Patient Time: Total time managing care of this patient today ____ minutes.
[2024-11-07] MEDS: Nicotine 21 MG PATCH.TD24 TRANSDERMA (12:14)
[2024-11-07] MEDS: LORazepam 1 MG TABLET 2 MG PO ×2 (12:45→20:33)
[2024-11-07] MEDS: OLANZapine 5 MG TABLET PO (12:45)
[2024-11-07 15:49] VITALS: BP 106/65
[2024-11-07 19:54] VITALS: BP 102/59; PULSE 85; TEMP 36.4; O2SAT 97
[2024-11-07 20:29] VITALS: BP 102/59
[2024-11-07] MEDS: QUEtiapine Fumarate 50 MG TABLET PO (20:30)
[2024-11-07] MEDS: Gabapentin 400 MG CAPSULE 800 MG PO (20:30)
[2024-11-07] MEDS: OLANZapine 10 MG TABLET PO (20:30)
[2024-11-08] MEDS: LORazepam 1 MG TABLET 2 MG PO ×2 (06:20→18:21)
[2024-11-08] MEDS: gemfibroziL 600 MG TABLET PO ×2 (06:20→16:35)
[2024-11-08] MEDS: methADONE HCl 20 MG/2 ML ORAL.CONC 90 MG PO (07:48)
[2024-11-08] MEDS: cloNIDine HCL 0.1 MG TABLET PO ×3 (08:21→20:32)
[2024-11-08] MEDS: Multivitamin TABLET 1 TAB PO (08:21)
[2024-11-08] MEDS: Gabapentin 400 MG CAPSULE 800 MG PO ×3 (08:21→20:32)
[2024-11-08 08:24] VITALS: BP 112/58; PULSE 78; RESP 16; TEMP 36.5; O2SAT 98
[2024-11-08] MEDS: Nicotine Polacrilex 2 MG GUM 4 MG BUCCAL ×6 (09:01→20:35)
[2024-11-08] MEDS: Nicotine 21 MG PATCH.TD24 TRANSDERMA (09:01)
[2024-11-08] MEDS: OLANZapine 5 MG TABLET PO ×2 (12:21→16:35)
[2024-11-08] MEDS: QUEtiapine Fumarate 50 MG TABLET PO ×2 (12:22→16:35)
--- NOTE | 2024-11-08 13:15 | HO.PSYCHPN ---
Subjective Subjective Date of Service: 11/08/24 Reason For Visit: Schizoaffective Disorder Polysubstance use disorde Interim History: met with patient; discussed with team still very anxious; sleeping to cope w/ anxiety; wants to be less depressed; less scared lowered Ativan to 2mg BID prn(which still seems to be high dose) Intermittent AH, but not bothersome Discussed psych history and Manic episode 5 days talking constantly, no sleep at all, re-arranging everything, racing mind..start things; no one wants to be around me; notices sex drive increase; grandiose thoughts like starting a band, a commune...throw rocks at cars cause wanted to...looking back would never do such a thing.. was sober for 5 months and still had severe depression and anxiety Past med trials include lithium, tegretol, lamictal, depakote; does not remember how they worked but does not want to be on a tradtional mood stabiizer...however was open to Trileptal Pt wants to start on Metformin (property underwriter reviewed risks/side effects) due to weight gain of Zyprexa She also agrees to start Trileptal for anxiety and mood stability Meformin ER 500mg qhs Tripleptal 150mg BID Mental Status Exam Mental Status Exam Patient Appearance: Fatigued Patient Orientation: Person, Place, Time and Situation Level of Consciousness: Alert Patient Behavior: Appropriate and Good Eye Contact Mood Description: Depressed Affect Description: Depressed Patient Cognition Impaired: No Ability to Follow Directions: Good Speech Pattern: Spontaneous Speech Memory Description: Episodic Impaired Hallucinations: Auditory (mild) Delusions: Not Present Thought Process: Rumination and Goal Oriented Thought Content: positive for Perseveration Depressive Symptoms: Feelings of Worthlessness, Hopelessness, Unhappiness, Increased Fatigue, Low Self Esteem and Loss of Energy Judgement: Fair Diagnostics Vital Signs (24Hr): Vital Signs - 24 hr 11/07/24 15:49 11/07/24 19:54 11/07/24 20:29 Temperature 97.5 F Pulse Rate 85 Respiratory Rate Blood Pressure 106/65 102/59 L 102/59 L Pulse Oximetry 97 Oxygen Delivery Method Room Air 11/08/24 08:24 Temperature 97.7 F Pulse Rate 78 Respiratory Rate 16 Blood Pressure 112/58 L Pulse Oximetry 98 Oxygen Delivery Method Room Air BMI result Body Mass Index 29.7 Labs 10/31/24 12:23 10/31/24 12:23 Medications Medications Current Medications Acetaminophen (Acetaminophen 325 Mg Tablet) 650 mg PO Q6H PRN PRN Reason: Headache/Pain, Scale 1-10 Last Admin: 11/03/24 16:59 Dose: 650 mg Al Hydroxide/Mg Hydroxide (Magnesium Hydrox/Alum Hydrox 30 Ml Oral.Susp) 30 ml PO Q6H PRN PRN Reason: Heartburn/Nausea Clonidine HCl (Clonidine Hcl 0.1 Mg Tablet) 0.1 mg PO TID [facility]; Protocol Last Admin: 11/08/24 08:21 Dose: 0.1 mg Gabapentin (Gabapentin 400 Mg Capsule) 800 mg PO TID [facility] Last Admin: 11/08/24 08:21 Dose: 800 mg Gemfibrozil (Gemfibrozil 600 Mg Tablet) 600 mg PO BIDAC [facility] Last Admin: 11/08/24 06:20 Dose: 600 mg Hydroxyzine HCl (Hydroxyzine Hcl 50 Mg Tablet) 50 mg PO TID PRN PRN Reason: Anxiety Last Admin: 11/06/24 09:07 Dose: 50 mg Hydroxyzine HCl (Hydroxyzine Hcl 25 Mg Tablet) 25 mg PO Q6H PRN PRN Reason: mild anxiety Lorazepam (Lorazepam 1 Mg Tablet) 2 mg PO BID PRN PRN Reason: Anxiety, agitation Last Admin: 11/07/24 20:33 Dose: 2 mg Magnesium Hydroxide (Milk Of Magnesia 30 Ml Oral.Susp) 30 ml PO DAILY PRN PRN Reason: Constipation Methadone HCl (Methadone Hcl 20 Mg/2 Ml Oral.Conc) 90 mg PO DAILY [facility] Last Admin: 11/08/24 07:48 Dose: 90 mg Multivitamins/Vitamin C (Multivitamin Tablet) 1 tab PO DAILY [facility] Last Admin: 11/08/24 08:21 Dose: 1 tab Nicotine (Nicotine 21 Mg Patch.Td24) 21 mg TRANSDERMA DAILY PRN PRN Reason: smoking cessation Last Admin: 11/08/24 09:01 Dose: 21 mg Nicotine Polacrilex (Nicotine Polacrilex 2 Mg Gum) 4 mg BUCCAL Q2H PRN PRN Reason: nicotine cravings Last Admin: 11/08/24 11:04 Dose: 4 mg Olanzapine (Olanzapine 5 Mg Tablet) 5 mg PO TID PRN PRN Reason: agitation Last Admin: 11/08/24 12:21 Dose: 5 mg Olanzapine (Olanzapine 10 Mg Tablet) 10 mg PO BEDTIME [facility] Last Admin: 11/07/24 20:30 Dose: 10 mg Quetiapine Fumarate (Quetiapine Fumarate 50 Mg Tablet) 50 mg PO BID PRN PRN Reason: moderate Anxiety Last Admin: 11/08/24 12:22 Dose: 50 mg Trazodone HCl (Trazodone Hcl 50 Mg Tablet) 50 mg PO BEDTIME MRX1 PRN PRN Reason: Insomnia Last Admin: 11/06/24 20:14 Dose: 50 mg Allergies Allergies Allergy/AdvReac Type Severity Reaction Status Date / Time Sulfa (Sulfonamide Allergy Unknown Unknown Verified 10/31/24 10:38 Antibiotics) Assessment & Plan Assessment & Plan (1) Schizoaffective disorder, depressive type: Status: Acute Code(s): F25.1 - Schizoaffective disorder, depressive type Plan 11/05: Patient notes that she continues to experience anxiety symptoms which waxes and wanes. She also feels angry. Her symptoms are chronic but worsened recently. Her current regimen is effective in controlling her symptoms. She has been sleeping throughout the night. She denies current SI/HI/AVH. 11/06- Denies SI,HI,AH,VH. Today she reports increase in depressive sx as she is missing her ex. Triglycerides are high- Lopid 600 mg bid ac trial 11/07 tearful; panic at times; talked about struggles with loneliness and feeling abandoned by family. No AVH. To help w/ anxiety, Discussed medications and agreed to increase Gabapentin back to 800mg tid (up from 600mg); also to make scheduled Clonidine TID 11/08 Pt wants to start on Metformin (property underwriter reviewed risks/side effects) due to weight gain of Zyprexa She also agrees to start Trileptal for anxiety and mood stability starting Meformin ER 500mg qhs starting Tripleptal 150mg BID for anxiety PLAN: Admit to M5. CV 15 minutes check. Increased Gabapentin to 800mg tid Clonidine changed from 0.1 mg TID scheduled (was BID scheduled) to target anxiety. Continue remainder of regime. Diagnostics as needed. Collateral contact. Encouraged full milieu. Discharge planning. Patient educated on: diagnosis, medication risk/benefits, substance abuse and therapeutic strategies Informed Consent: understands and further education needed Reason for continued inpatient stay Substantial Risk for: rapid decompensation Time Spent With Patient Time: Total time managing care of this patient today ____ minutes.
[2024-11-08 14:04] VITALS: BP 106/55
[2024-11-08] MEDS: metFORMIN HCl ER 500 MG TAB.ER.24H PO (16:35)
[2024-11-08 20:00] VITALS: BP 145/60; PULSE 79; TEMP 36.6; O2SAT 98
[2024-11-08 20:32] VITALS: BP 145/60
[2024-11-08] MEDS: OXcarbazepine 150 MG TABLET PO (20:32)
[2024-11-08] MEDS: traZODone HCL 50 MG TABLET PO (20:33)
[2024-11-08] MEDS: Acetaminophen 325 MG TABLET 650 MG PO (23:08)
[2024-11-09 07:37] VITALS: BP 101/56; PULSE 85; RESP 16; TEMP 36.7; O2SAT 97
[2024-11-09] MEDS: methADONE HCl 20 MG/2 ML ORAL.CONC 90 MG PO (07:50)
[2024-11-09 08:01] LABS: Creatinine Clr Calc Pharmacy 102.9; Estimated Glomerular Filt Rate > 60
[2024-11-09] MEDS: cloNIDine HCL 0.1 MG TABLET PO ×3 (08:25→21:16)
[2024-11-09] MEDS: gemfibroziL 600 MG TABLET PO ×2 (08:25→15:41)
[2024-11-09] MEDS: OXcarbazepine 150 MG TABLET PO ×2 (08:25→21:17)
[2024-11-09] MEDS: Multivitamin TABLET 1 TAB PO (08:25)
[2024-11-09] MEDS: Gabapentin 400 MG CAPSULE 800 MG PO ×3 (08:25→21:15)
--- NOTE | 2024-11-09 10:15 | P.PNPSI_ITS ---
Subjective Subjective Date of Service: 11/09/24 Reason For Visit: Schizoaffective Disorder Polysubstance use disorde Subjective Notes: Conditional Voluntary Healthcare Proxy: No Guardianship: No Medical Problems Affecting Mental Status: No Interim History: It's [place] . In bed, hostile, dismissive. States she has not decided if she wants a program yet, she may go to a friends home. Denies med SE, denies feeling overmedicated. Spending a good deal of time in bed, I am just depressed, I can diagnose myself . States she is not attending groups. Reviewed med changes made over the weekend- no issues . Medication Compliance: Yes Side effects from medications: No Attending Groups: No Review of Systems Acute medical concerns: No Medical Review of Systems: unchanged Review of Systems Review of Systems Denies Mental Status Exam Mental Status Exam Patient Appearance: Fatigued Patient Orientation: Person, Place, Time and Situation Level of Consciousness: Alert Patient Behavior: Appropriate and Poor Eye Contact Mood Description: Depressed, Hostile and Angry Affect Description: Depressed, Hostile and Angry Patient Cognition Impaired: No Ability to Follow Directions: Good Speech Pattern: Spontaneous Speech Memory Description: Episodic Impaired Delusions: Not Present Thought Process: Rumination and Goal Oriented Thought Content: positive for Perseveration Depressive Symptoms: Feelings of Worthlessness, Hopelessness, Unhappiness, Increased Fatigue, Low Self Esteem and Loss of Energy Abnormal Motor Activity Signs and Symptoms: Agitation Judgement: Fair Diagnostics Vital Signs (24Hr): Vital Signs - 24 hr 11/08/24 14:04 11/08/24 20:00 11/08/24 20:32 Temperature 97.9 F Pulse Rate 79 Respiratory Rate Blood Pressure 106/55 L 145/60 H 145/60 H Pulse Oximetry 98 Oxygen Delivery Method Room Air 11/09/24 07:37 Temperature 98.1 F Pulse Rate 85 Respiratory Rate 16 Blood Pressure 101/56 L Pulse Oximetry 97 Oxygen Delivery Method Room Air BMI result Body Mass Index 29.7 Labs 10/31/24 12:23 11/09/24 07:39 Labs: Laboratory Results - last 48 hr 11/09/24 07:39 Creatinine 0.71 Estim Creat Clear Calc 102.9 Estimated GFR > 60 Medications Medications Current Medications Acetaminophen (Acetaminophen 325 Mg Tablet) 650 mg PO Q6H PRN PRN Reason: Headache/Pain, Scale 1-10 Last Admin: 11/08/24 23:08 Dose: 650 mg Al Hydroxide/Mg Hydroxide (Magnesium Hydrox/Alum Hydrox 30 Ml Oral.Susp) 30 ml PO Q6H PRN PRN Reason: Heartburn/Nausea Clonidine HCl (Clonidine Hcl 0.1 Mg Tablet) 0.1 mg PO TID [facility]; Protocol Last Admin: 11/09/24 08:25 Dose: 0.1 mg Gabapentin (Gabapentin 400 Mg Capsule) 800 mg PO TID [facility] Last Admin: 11/09/24 08:25 Dose: 800 mg Gemfibrozil (Gemfibrozil 600 Mg Tablet) 600 mg PO BIDAC [facility] Last Admin: 11/09/24 08:25 Dose: 600 mg Hydroxyzine HCl (Hydroxyzine Hcl 50 Mg Tablet) 50 mg PO TID PRN PRN Reason: Anxiety Last Admin: 11/06/24 09:07 Dose: 50 mg Hydroxyzine HCl (Hydroxyzine Hcl 25 Mg Tablet) 25 mg PO Q6H PRN PRN Reason: mild anxiety Lorazepam (Lorazepam 1 Mg Tablet) 2 mg PO BID PRN PRN Reason: Anxiety, agitation Last Admin: 11/08/24 18:21 Dose: 2 mg Magnesium Hydroxide (Milk Of Magnesia 30 Ml Oral.Susp) 30 ml PO DAILY PRN PRN Reason: Constipation Metformin HCl (Metformin Hcl Er 500 Mg Tab.Er.24h) 500 mg PO DAILY@1700 [facility] Last Admin: 11/08/24 16:35 Dose: 500 mg Methadone HCl (Methadone Hcl 20 Mg/2 Ml Oral.Conc) 90 mg PO DAILY [facility] Last Admin: 11/09/24 07:50 Dose: 90 mg Multivitamins/Vitamin C (Multivitamin Tablet) 1 tab PO DAILY [facility] Last Admin: 11/09/24 08:25 Dose: 1 tab Nicotine (Nicotine 21 Mg Patch.Td24) 21 mg TRANSDERMA DAILY PRN PRN Reason: smoking cessation Last Admin: 11/08/24 09:01 Dose: 21 mg Nicotine Polacrilex (Nicotine Polacrilex 2 Mg Gum) 4 mg BUCCAL Q2H PRN PRN Reason: nicotine cravings Last Admin: 11/08/24 20:35 Dose: 4 mg Olanzapine (Olanzapine 5 Mg Tablet) 5 mg PO TID PRN PRN Reason: agitation Last Admin: 11/08/24 16:35 Dose: 5 mg Olanzapine (Olanzapine 10 Mg Tablet) 10 mg PO BEDTIME [facility] Last Admin: 11/08/24 21:13 Dose: Not Given Oxcarbazepine (Oxcarbazepine 150 Mg Tablet) 150 mg PO BID [facility] Last Admin: 11/09/24 08:25 Dose: 150 mg Quetiapine Fumarate (Quetiapine Fumarate 50 Mg Tablet) 50 mg PO BID PRN PRN Reason: moderate Anxiety Last Admin: 11/08/24 16:35 Dose: 50 mg Trazodone HCl (Trazodone Hcl 50 Mg Tablet) 50 mg PO BEDTIME MRX1 PRN PRN Reason: Insomnia Last Admin: 11/08/24 20:33 Dose: 50 mg Allergies Allergies Allergy/AdvReac Type Severity Reaction Status Date / Time Sulfa (Sulfonamide Allergy Unknown Unknown Verified 10/31/24 10:38 Antibiotics) Assessment & Plan Assessment & Plan (1) Schizoaffective disorder, depressive type: Status: Acute Code(s): F25.1 - Schizoaffective disorder, depressive type Plan 11/05: Patient notes that she continues to experience anxiety symptoms which waxes and wanes. She also feels angry. Her symptoms are chronic but worsened recently. Her current regimen is effective in controlling her symptoms. She has been sleeping throughout the night. She denies current SI/HI/AVH. 11/06- Denies SI,HI,AH,VH. Today she reports increase in depressive sx as she is missing her ex. Triglycerides are high- Lopid 600 mg bid ac trial 11/07 tearful; panic at times; talked about struggles with loneliness and feeling abandoned by family. No AVH. To help w/ anxiety, Discussed medications and agreed to increase Gabapentin back to 800mg tid (up from 600mg); also to make scheduled Clonidine TID 11/08 Pt wants to start on Metformin (freelance copywriter reviewed risks/side effects) due to weight gain of Zyprexa She also agrees to start Trileptal for anxiety and mood stability. 11/09-Continue trial starting Meformin ER 500mg qhs starting Tripleptal 150mg BID for anxiety PLAN: Admit to M5. CV 15 minutes check. Increased Gabapentin to 800mg tid Clonidine changed from 0.1 mg TID scheduled (was BID scheduled) to target anxiety. Continue remainder of regime. Diagnostics as needed. Collateral contact. Encouraged full milieu. Discharge planning. Reason for continued inpatient stay Substantial Risk for: rapid decompensation Time Spent With Patient Time: Total time managing care of this patient today ____ minutes.
[2024-11-09] MEDS: Nicotine Polacrilex 2 MG GUM 4 MG BUCCAL ×4 (10:58→17:57)
[2024-11-09] MEDS: hydrOXYzine HCL 50 MG TABLET PO (13:09)
[2024-11-09 15:41] VITALS: BP 118/59
[2024-11-09] MEDS: metFORMIN HCl ER 500 MG TAB.ER.24H PO (15:41)
[2024-11-09] MEDS: Nicotine 21 MG PATCH.TD24 TRANSDERMA (17:56)
[2024-11-09 20:00] VITALS: BP 108/60; PULSE 80; RESP 16; TEMP 36.6; O2SAT 98
[2024-11-09] MEDS: OLANZapine 10 MG TABLET PO (21:16)
[2024-11-09] MEDS: QUEtiapine Fumarate 50 MG TABLET PO (21:24)
[2024-11-09] MEDS: traZODone HCL 50 MG TABLET PO (21:24)
[2024-11-09] MEDS: LORazepam 1 MG TABLET 2 MG PO (21:25)
[2024-11-09] MEDS: Acetaminophen 325 MG TABLET 650 MG PO (21:26)
[2024-11-10] MEDS: methADONE HCl 20 MG/2 ML ORAL.CONC 90 MG PO (07:51)
[2024-11-10 08:09] VITALS: BP 118/75; PULSE 63; TEMP 36.3; O2SAT 97
[2024-11-10] MEDS: Nicotine Polacrilex 2 MG GUM 4 MG BUCCAL ×4 (08:44→19:34)
[2024-11-10] MEDS: Gabapentin 400 MG CAPSULE 800 MG PO ×3 (08:44→20:56)
[2024-11-10] MEDS: Nicotine 21 MG PATCH.TD24 TRANSDERMA (08:44)
[2024-11-10] MEDS: OXcarbazepine 150 MG TABLET PO (08:45)
[2024-11-10] MEDS: Multivitamin TABLET 1 TAB PO (08:45)
[2024-11-10] MEDS: cloNIDine HCL 0.1 MG TABLET PO ×3 (08:45→20:55)
[2024-11-10] MEDS: gemfibroziL 600 MG TABLET PO ×2 (08:45→15:31)
[2024-11-10] MEDS: hydrOXYzine HCL 50 MG TABLET PO (08:53)
--- NOTE | 2024-11-10 09:28 | P.PNPSI_ITS ---
Subjective Subjective Date of Service: 11/10/24 Reason For Visit: Schizoaffective Disorder Polysubstance use disorde Subjective Notes: Conditional Voluntary and 3 Day Healthcare Proxy: No Guardianship: No Medical Problems Affecting Mental Status: No Interim History: TDN filed for 50. Labile, approachable in the a.m. Met with pt and Naz Chandra LCSW this afternoon-angry, witholding, not wanting to talk about feelings, issues, I was up all night . Team reports sleeping 7 hours. When asked about loss, pt is tearful, angry, guarded and dismissive. Will increase Olanzapine and Trileptal-pt agrees TDN signed after our meeting today. I will just go to another hospital and tell them you kicked me out. Medication Compliance: Yes Side effects from medications: No Attending Groups: No Review of Systems Acute medical concerns: No Review of Systems Review of Systems no. Mental Status Exam Mental Status Exam Patient Appearance: Fatigued Patient Orientation: Person, Place, Time and Situation Level of Consciousness: Alert Patient Behavior: Appropriate and Poor Eye Contact Mood Description: Depressed, Hostile and Angry Affect Description: Depressed, Hostile and Angry Patient Cognition Impaired: No Ability to Follow Directions: Good Speech Pattern: Spontaneous Speech Memory Description: Episodic Impaired Delusions: Not Present Thought Process: Rumination and Goal Oriented Thought Content: positive for Perseveration Depressive Symptoms: Feelings of Worthlessness, Hopelessness, Unhappiness, Increased Fatigue, Low Self Esteem and Loss of Energy Abnormal Motor Activity Signs and Symptoms: Agitation Judgement: Fair Diagnostics Vital Signs (24Hr): Vital Signs - 24 hr 11/09/24 15:41 11/09/24 20:00 11/10/24 08:09 Temperature 98 F 97.3 F Pulse Rate 80 63 Respiratory Rate 16 Blood Pressure 118/59 L 108/60 118/75 Pulse Oximetry 98 97 Oxygen Delivery Method Room Air Room Air BMI result Body Mass Index 29.7 Labs 10/31/24 12:23 11/09/24 07:39 Labs: Laboratory Results - last 48 hr 11/09/24 07:39 Creatinine 0.71 Estim Creat Clear Calc 102.9 Estimated GFR > 60 Medications Medications Current Medications Acetaminophen (Acetaminophen 325 Mg Tablet) 650 mg PO Q6H PRN PRN Reason: Headache/Pain, Scale 1-10 Last Admin: 11/09/24 21:26 Dose: 650 mg Al Hydroxide/Mg Hydroxide (Magnesium Hydrox/Alum Hydrox 30 Ml Oral.Susp) 30 ml PO Q6H PRN PRN Reason: Heartburn/Nausea Clonidine HCl (Clonidine Hcl 0.1 Mg Tablet) 0.1 mg PO TID [facility]; Protocol Last Admin: 11/10/24 08:45 Dose: 0.1 mg Gabapentin (Gabapentin 400 Mg Capsule) 800 mg PO TID [facility] Last Admin: 11/10/24 08:44 Dose: 800 mg Gemfibrozil (Gemfibrozil 600 Mg Tablet) 600 mg PO BIDAC [facility] Last Admin: 11/10/24 08:45 Dose: 600 mg Hydroxyzine HCl (Hydroxyzine Hcl 50 Mg Tablet) 50 mg PO TID PRN PRN Reason: Anxiety Last Admin: 11/10/24 08:53 Dose: 50 mg Hydroxyzine HCl (Hydroxyzine Hcl 25 Mg Tablet) 25 mg PO Q6H PRN PRN Reason: mild anxiety Lorazepam (Lorazepam 1 Mg Tablet) 2 mg PO BID PRN PRN Reason: Anxiety, agitation Last Admin: 11/09/24 21:25 Dose: 2 mg Magnesium Hydroxide (Milk Of Magnesia 30 Ml Oral.Susp) 30 ml PO DAILY PRN PRN Reason: Constipation Metformin HCl (Metformin Hcl Er 500 Mg Tab.Er.24h) 500 mg PO DAILY@1700 [facility] Last Admin: 11/09/24 15:41 Dose: 500 mg Methadone HCl (Methadone Hcl 20 Mg/2 Ml Oral.Conc) 90 mg PO DAILY [facility] Last Admin: 11/10/24 07:51 Dose: 90 mg Multivitamins/Vitamin C (Multivitamin Tablet) 1 tab PO DAILY [facility] Last Admin: 11/10/24 08:45 Dose: 1 tab Nicotine (Nicotine 21 Mg Patch.Td24) 21 mg TRANSDERMA DAILY PRN PRN Reason: smoking cessation Last Admin: 11/10/24 08:44 Dose: 21 mg Nicotine Polacrilex (Nicotine Polacrilex 2 Mg Gum) 4 mg BUCCAL Q2H PRN PRN Reason: nicotine cravings Last Admin: 11/10/24 08:44 Dose: 4 mg Olanzapine (Olanzapine 5 Mg Tablet) 5 mg PO TID PRN PRN Reason: agitation Last Admin: 11/08/24 16:35 Dose: 5 mg Olanzapine (Olanzapine 10 Mg Tablet) 10 mg PO BEDTIME [facility] Last Admin: 11/09/24 21:16 Dose: 10 mg Oxcarbazepine (Oxcarbazepine 150 Mg Tablet) 150 mg PO BID [facility] Last Admin: 11/10/24 08:45 Dose: 150 mg Quetiapine Fumarate (Quetiapine Fumarate 50 Mg Tablet) 50 mg PO BID PRN PRN Reason: moderate Anxiety Last Admin: 11/09/24 21:24 Dose: 50 mg Trazodone HCl (Trazodone Hcl 50 Mg Tablet) 50 mg PO BEDTIME MRX1 PRN PRN Reason: Insomnia Last Admin: 11/09/24 21:24 Dose: 50 mg Allergies Allergies Allergy/AdvReac Type Severity Reaction Status Date / Time Sulfa (Sulfonamide Allergy Unknown Unknown Verified 10/31/24 10:38 Antibiotics) Assessment & Plan Assessment & Plan (1) Schizoaffective disorder, depressive type: Status: Acute Code(s): F25.1 - Schizoaffective disorder, depressive type Plan 11/05: Patient notes that she continues to experience anxiety symptoms which waxes and wanes. She also feels angry. Her symptoms are chronic but worsened recently. Her current regimen is effective in controlling her symptoms. She has been sleeping throughout the night. She denies current SI/HI/AVH. 11/06- Denies SI,HI,AH,VH. Today she reports increase in depressive sx as she is missing her ex. Triglycerides are high- Lopid 600 mg bid ac trial 11/07 tearful; panic at times; talked about struggles with loneliness and feeling abandoned by family. No AVH. To help w/ anxiety, Discussed medications and agreed to increase Gabapentin back to 800mg tid (up from 600mg); also to make scheduled Clonidine TID 11/08 Pt wants to start on Metformin (technical publications writer reviewed risks/side effects) due to weight gain of Zyprexa She also agrees to start Trileptal for anxiety and mood stability. 11/09-Continue trial 11/10- Increase Olanzapine and Trileptal starting Meformin ER 500mg qhs starting Tripleptal 150mg BID for anxiety PLAN: Admit to M5. CV 15 minutes check. Increased Gabapentin to 800mg tid Clonidine changed from 0.1 mg TID scheduled (was BID scheduled) to target anxiety. Continue remainder of regime. Diagnostics as needed. Collateral contact. Encouraged full milieu. Discharge planning. Reason for continued inpatient stay Substantial Risk for: rapid decompensation Time Spent With Patient Time: Total time managing care of this patient today ____ minutes.
[2024-11-10 15:31] VITALS: BP 127/65
[2024-11-10] MEDS: LORazepam 1 MG TABLET 2 MG PO ×2 (15:32→20:56)
[2024-11-10] MEDS: metFORMIN HCl ER 500 MG TAB.ER.24H PO (17:41)
[2024-11-10] MEDS: Acetaminophen 325 MG TABLET 650 MG PO (19:33)
[2024-11-10 19:40] VITALS: BP 109/65; PULSE 85; RESP 16; TEMP 36.4; O2SAT 99
[2024-11-10] MEDS: traZODone HCL 50 MG TABLET PO (20:55)
[2024-11-10] MEDS: OXcarbazepine 300 MG TABLET PO (20:55)
[2024-11-10] MEDS: QUEtiapine Fumarate 50 MG TABLET PO (20:56)
[2024-11-10] MEDS: OLANZapine 10 MG TABLET 20 MG PO (20:56)
[2024-11-11] MEDS: methADONE HCl 20 MG/2 ML ORAL.CONC 90 MG PO (07:49)
[2024-11-11] MEDS: OXcarbazepine 300 MG TABLET PO ×2 (08:26→20:44)
[2024-11-11] MEDS: cloNIDine HCL 0.1 MG TABLET PO ×3 (08:27→20:44)
[2024-11-11] MEDS: gemfibroziL 600 MG TABLET PO ×2 (08:27→16:30)
[2024-11-11] MEDS: Gabapentin 400 MG CAPSULE 800 MG PO ×3 (08:27→20:44)
[2024-11-11] MEDS: Multivitamin TABLET 1 TAB PO (08:27)
[2024-11-11] MEDS: Nicotine Polacrilex 2 MG GUM 4 MG BUCCAL ×3 (08:30→14:49)
[2024-11-11] MEDS: Nicotine 21 MG PATCH.TD24 TRANSDERMA (08:31)
[2024-11-11 08:32] VITALS: BP 100/58; PULSE 94; RESP 18; TEMP 36.7; O2SAT 98
--- NOTE | 2024-11-11 10:02 | P.PNPSI_ITS ---
Subjective Subjective Date of Service: 11/11/24 Reason For Visit: Schizoaffective Disorder Polysubstance use disorde Subjective Notes: Conditional Voluntary and 3 Day Healthcare Proxy: No Guardianship: No Medical Problems Affecting Mental Status: No Interim History: Irritable, dismissive. Filed a three day notice. Boyfriend visited Continues to resist talking about issues Tolerating med increases from 11/10. Medication Compliance: Yes Side effects from medications: No Attending Groups: No Review of Systems Acute medical concerns: No Review of Systems Review of Systems Denies Mental Status Exam Mental Status Exam Patient Appearance: Fatigued Patient Orientation: Person, Place, Time and Situation Level of Consciousness: Alert Patient Behavior: Appropriate and Poor Eye Contact Mood Description: Depressed, Hostile and Angry Affect Description: Depressed, Hostile and Angry Patient Cognition Impaired: No Ability to Follow Directions: Good Speech Pattern: Spontaneous Speech Memory Description: Episodic Impaired Delusions: Not Present Thought Process: Rumination and Goal Oriented Thought Content: positive for Perseveration Depressive Symptoms: Feelings of Worthlessness, Hopelessness, Unhappiness, Increased Fatigue, Low Self Esteem and Loss of Energy Abnormal Motor Activity Signs and Symptoms: Agitation Judgement: Fair Diagnostics Vital Signs (24Hr): Vital Signs - 24 hr 11/10/24 15:31 11/10/24 19:40 11/11/24 08:32 Temperature 97.6 F 98.1 F Pulse Rate 85 94 Respiratory Rate 16 18 Blood Pressure 127/65 109/65 100/58 L Pulse Oximetry 99 98 Oxygen Delivery Method Room Air BMI result Body Mass Index 29.7 Labs 10/31/24 12:23 11/09/24 07:39 Medications Medications Current Medications Acetaminophen (Acetaminophen 325 Mg Tablet) 650 mg PO Q6H PRN PRN Reason: Headache/Pain, Scale 1-10 Last Admin: 11/10/24 19:33 Dose: 650 mg Al Hydroxide/Mg Hydroxide (Magnesium Hydrox/Alum Hydrox 30 Ml Oral.Susp) 30 ml PO Q6H PRN PRN Reason: Heartburn/Nausea Clonidine HCl (Clonidine Hcl 0.1 Mg Tablet) 0.1 mg PO TID [facility]; Protocol Last Admin: 11/11/24 08:27 Dose: 0.1 mg Gabapentin (Gabapentin 400 Mg Capsule) 800 mg PO TID [facility] Last Admin: 11/11/24 08:27 Dose: 800 mg Gemfibrozil (Gemfibrozil 600 Mg Tablet) 600 mg PO BIDAC [facility] Last Admin: 11/11/24 08:27 Dose: 600 mg Hydroxyzine HCl (Hydroxyzine Hcl 50 Mg Tablet) 50 mg PO TID PRN PRN Reason: Anxiety Last Admin: 11/10/24 08:53 Dose: 50 mg Hydroxyzine HCl (Hydroxyzine Hcl 25 Mg Tablet) 25 mg PO Q6H PRN PRN Reason: mild anxiety Lorazepam (Lorazepam 1 Mg Tablet) 2 mg PO BID PRN PRN Reason: Anxiety, agitation Last Admin: 11/10/24 20:56 Dose: 2 mg Magnesium Hydroxide (Milk Of Magnesia 30 Ml Oral.Susp) 30 ml PO DAILY PRN PRN Reason: Constipation Metformin HCl (Metformin Hcl Er 500 Mg Tab.Er.24h) 500 mg PO DAILY@1700 [facility] Last Admin: 11/10/24 17:41 Dose: 500 mg Methadone HCl (Methadone Hcl 20 Mg/2 Ml Oral.Conc) 90 mg PO DAILY [facility] Last Admin: 11/11/24 07:49 Dose: 90 mg Multivitamins/Vitamin C (Multivitamin Tablet) 1 tab PO DAILY [facility] Last Admin: 11/11/24 08:27 Dose: 1 tab Nicotine (Nicotine 21 Mg Patch.Td24) 21 mg TRANSDERMA DAILY PRN PRN Reason: smoking cessation Last Admin: 11/11/24 08:31 Dose: 21 mg Nicotine Polacrilex (Nicotine Polacrilex 2 Mg Gum) 4 mg BUCCAL Q2H PRN PRN Reason: nicotine cravings Last Admin: 11/11/24 08:30 Dose: 4 mg Olanzapine (Olanzapine 5 Mg Tablet) 5 mg PO TID PRN PRN Reason: agitation Last Admin: 11/08/24 16:35 Dose: 5 mg Olanzapine (Olanzapine 10 Mg Tablet) 20 mg PO BEDTIME [facility] Last Admin: 11/10/24 20:56 Dose: 20 mg Oxcarbazepine (Oxcarbazepine 300 Mg Tablet) 300 mg PO BID [facility] Last Admin: 11/11/24 08:26 Dose: 300 mg Quetiapine Fumarate (Quetiapine Fumarate 50 Mg Tablet) 50 mg PO BID PRN PRN Reason: moderate Anxiety Last Admin: 11/10/24 20:56 Dose: 50 mg Trazodone HCl (Trazodone Hcl 50 Mg Tablet) 50 mg PO BEDTIME MRX1 PRN PRN Reason: Insomnia Last Admin: 11/10/24 20:55 Dose: 50 mg Allergies Allergies Allergy/AdvReac Type Severity Reaction Status Date / Time Sulfa (Sulfonamide Allergy Unknown Unknown Verified 10/31/24 10:38 Antibiotics) Assessment & Plan Assessment & Plan (1) Schizoaffective disorder, depressive type: Status: Acute Code(s): F25.1 - Schizoaffective disorder, depressive type Plan 11/05: Patient notes that she continues to experience anxiety symptoms which waxes and wanes. She also feels angry. Her symptoms are chronic but worsened recently. Her current regimen is effective in controlling her symptoms. She has been sleeping throughout the night. She denies current SI/HI/AVH. 11/06- Denies SI,HI,AH,VH. Today she reports increase in depressive sx as she is missing her ex. Triglycerides are high- Lopid 600 mg bid ac trial 11/07 tearful; panic at times; talked about struggles with loneliness and feeling abandoned by family. No AVH. To help w/ anxiety, Discussed medications and agreed to increase Gabapentin back to 800mg tid (up from 600mg); also to make scheduled Clonidine TID 11/08 Pt wants to start on Metformin (investment underwriter reviewed risks/side effects) due to weight gain of Zyprexa She also agrees to start Trileptal for anxiety and mood stability. 11/09-Continue trial 11/10- Increase Olanzapine and Trileptal 11/11 Continue regime. TDN 11/13. starting Meformin ER 500mg qhs starting Tripleptal 150mg BID for anxiety PLAN: Admit to M5. CV 15 minutes check. Increased Gabapentin to 800mg tid Clonidine changed from 0.1 mg TID scheduled (was BID scheduled) to target anxiety. Continue remainder of regime. Diagnostics as needed. Collateral contact. Encouraged full milieu. Discharge planning. Reason for continued inpatient stay Substantial Risk for: rapid decompensation Time Spent With Patient Time: Total time managing care of this patient today ____ minutes.
[2024-11-11] MEDS: LORazepam 1 MG TABLET 2 MG PO ×2 (12:41→20:44)
[2024-11-11] MEDS: hydrOXYzine HCL 25 MG TABLET PO (12:41)
[2024-11-11 14:05] VITALS: BP 107/63
[2024-11-11] MEDS: metFORMIN HCl ER 500 MG TAB.ER.24H PO (16:30)
[2024-11-11] MEDS: hydrOXYzine HCL 50 MG TABLET PO (16:33)
[2024-11-11 19:45] VITALS: BP 103/55; PULSE 89; RESP 14; TEMP 36.8; O2SAT 99
[2024-11-11] MEDS: traZODone HCL 50 MG TABLET PO (20:44)
[2024-11-11] MEDS: OLANZapine 10 MG TABLET 20 MG PO (20:44)
[2024-11-12] MEDS: Magnesium Hydrox/Alum Hydrox 30 ML ORAL.SUSP PO (02:27)
[2024-11-12] MEDS: QUEtiapine Fumarate 50 MG TABLET PO (03:00)
[2024-11-12] MEDS: traZODone HCL 50 MG TABLET PO (03:00)
[2024-11-12] MEDS: Acetaminophen 325 MG TABLET 650 MG PO ×3 (05:32→21:25)
[2024-11-12] MEDS: Nicotine Polacrilex 2 MG GUM 4 MG BUCCAL ×5 (05:33→20:14)
[2024-11-12] MEDS: LORazepam 1 MG TABLET 2 MG PO (05:33)
--- NOTE | 2024-11-12 05:48 | PC.NURSE ---
pt woke up at approximately 0540 complaining of body aches, chills, and diaphoresis. Pt was requesting meds due to feeling dope sick despite being on the same dose of methadone. pt received ativan, tylenol. urine drug screening and flu/covid/rsv obtained.
[2024-11-12 06:38] LABS: Amphetamine Screen Urine Not Detected (Not Detect); Barbiturates, Urine Not Detected (Not Detect); Benzodiazepines Screen Urine Not Detected (Not Detect); Buprenorphine Scr Not Detected (Not Detect); Cannabinoid Screen Urine Not Detected (Not Detect); Cocaine Screen Urine Not Detected (Not Detect); Fentanyl, urine POSITIVE (Not Detect); Methadone Screen, Urine Positive (Not Detect); Opiate Screen Urine Not Detected (Not Detect); Oxycodone Screen Urine Not Detected (Not Detect); Phencyclidine Screen Urine Not Detected (Not Detect)
--- NOTE | 2024-11-12 06:47 | PC.NURSE ---
At approximately 0640, as this television script writer was opening a shower room for this patient, the patient asked Can you withdraw from in vitro drugs? This television script writer asked Do you mean intravenous drugs? The patient then stated No, in vitro. I was supposed to get with this emanuel, but this other lady took the eggs and they put them in through a hole in her back. When this television script writer attempted further clarification, the patient became irritable and said Nevermind. I'm just gonna take my shower, and ended the conversation.
[2024-11-12 07:00] VITALS: BMI 30.6
[2024-11-12] MEDS: methADONE HCl 20 MG/2 ML ORAL.CONC 90 MG PO (07:40)
[2024-11-12 08:00] VITALS: BP 123/63; PULSE 86; RESP 16; TEMP 36.9; O2SAT 99
[2024-11-12] MEDS: Gabapentin 400 MG CAPSULE 800 MG PO ×3 (08:50→20:06)
[2024-11-12] MEDS: Multivitamin TABLET 1 TAB PO (08:50)
[2024-11-12] MEDS: OXcarbazepine 300 MG TABLET PO ×2 (08:50→20:07)
[2024-11-12] MEDS: gemfibroziL 600 MG TABLET PO ×2 (08:50→16:59)
[2024-11-12] MEDS: cloNIDine HCL 0.1 MG TABLET PO ×3 (08:50→20:12)
[2024-11-12] MEDS: Nicotine 21 MG PATCH.TD24 TRANSDERMA (08:57)
--- NOTE | 2024-11-12 10:18 | HO.PSYCHPN ---
Subjective Subjective Date of Service: 11/12/24 Reason For Visit: Schizoaffective Disorder Polysubstance use disorde Subjective Notes: Conditional Voluntary and 3 Day Healthcare Proxy: No Guardianship: No Medical Problems Affecting Mental Status: No Interim History: Notified by team early this a.m. that pt reported body aches, sweats, chills, feeling dope sick . Tox done by customer contact sales associate, positive for methadone,fentanyl, negative for lorazepam (Ativan 2 mg bid). Tells team she is on invetro and is getting cut open to place a baby. Body/Belonging search done for questionable stockpiling of lorazepam-nothing was found. Pt denies her boyfriend who visited yesterday brought her in anything-will proceed with supervised visits. Discussed concern of current sx with pt and our need to continue to monitor. She was able to retract her three day notice and we will change Lorazepam to Klonopin to assess if it is more helpful. Tentative discharge for 11/16 if sx do not recur. Seroquel titrated as well. Team note poor attention to ADL's, however, today pt is more engaged and talkative in our meeting, the first time since admit and is able to clearly express herself, her concerns and needs. Medication Compliance: Yes Side effects from medications: No Attending Groups: Intermittent Review of Systems Acute medical concerns: No Review of Systems Review of Systems Denies Later in the day reports feeling tired. Mental Status Exam Mental Status Exam Patient Appearance: Appropriate Patient Orientation: Person, Place, Time and Situation Level of Consciousness: Alert Patient Behavior: Talkative, Anxious, Distractible and Good Eye Contact Mood Description: Labile Affect Description: Labile Patient Cognition Impaired: No Ability to Follow Directions: Good Speech Pattern: Spontaneous Speech Memory Description: Episodic Impaired Hallucinations: None (denies when we met) Delusions: Paranoid Ideation (mild-however, able to talk concerns through) Thought Process: Distracted and Rumination Thought Content: positive for Circumstantial, positive for Goal Oriented, positive for Perseveration and positive for Suicidal Ideation (denies) Depressive Symptoms: Increased Anxiety, Diff. Making Decisions, Increased Irritability, Unhappiness, Increased Fatigue and Loss of Energy Abnormal Motor Activity Signs and Symptoms: Restlessness Judgement: Fair Diagnostics Vital Signs (24Hr): Vital Signs - 24 hr 11/11/24 14:05 11/11/24 19:45 11/12/24 08:00 Temperature 98.2 F 98.4 F Pulse Rate 89 86 Respiratory Rate 14 16 Blood Pressure 107/63 103/55 L 123/63 Pulse Oximetry 99 99 Oxygen Delivery Method Room Air Room Air BMI result Body Mass Index 29.7 Labs 10/31/24 12:23 11/09/24 07:39 Labs: Laboratory Results - last 48 hr 11/12/24 05:46 Urine Opiates Screen Not Detected Ur Buprenorphine Scrn Not Detected Ur Oxycodone Screen Not Detected Urine Methadone Screen Positive H Urine Fentanyl Screen POSITIVE H Ur Barbiturates Screen Not Detected Ur Phencyclidine Scrn Not Detected Ur Amphetamines Screen Not Detected U Benzodiazepines Scrn Not Detected Urine Cocaine Screen Not Detected U Marijuana (THC) Screen Not Detected Medications Medications Current Medications Acetaminophen (Acetaminophen 325 Mg Tablet) 650 mg PO Q6H PRN PRN Reason: Headache/Pain, Scale 1-10 Last Admin: 11/12/24 05:32 Dose: 650 mg Al Hydroxide/Mg Hydroxide (Magnesium Hydrox/Alum Hydrox 30 Ml Oral.Susp) 30 ml PO Q6H PRN PRN Reason: Heartburn/Nausea Last Admin: 11/12/24 02:27 Dose: 30 ml Clonidine HCl (Clonidine Hcl 0.1 Mg Tablet) 0.1 mg PO TID [facility]; Protocol Last Admin: 11/12/24 08:50 Dose: 0.1 mg Gabapentin (Gabapentin 400 Mg Capsule) 800 mg PO TID [facility] Last Admin: 11/12/24 08:50 Dose: 800 mg Gemfibrozil (Gemfibrozil 600 Mg Tablet) 600 mg PO BIDAC [facility] Last Admin: 11/12/24 08:50 Dose: 600 mg Hydroxyzine HCl (Hydroxyzine Hcl 50 Mg Tablet) 50 mg PO TID PRN PRN Reason: Anxiety Last Admin: 11/11/24 16:33 Dose: 50 mg Lorazepam (Lorazepam 1 Mg Tablet) 1 mg PO BID PRN PRN Reason: Anxiety, agitation Magnesium Hydroxide (Milk Of Magnesia 30 Ml Oral.Susp) 30 ml PO DAILY PRN PRN Reason: Constipation Metformin HCl (Metformin Hcl Er 500 Mg Tab.Er.24h) 500 mg PO DAILY@1700 [facility] Last Admin: 11/11/24 16:30 Dose: 500 mg Methadone HCl (Methadone Hcl 20 Mg/2 Ml Oral.Conc) 90 mg PO DAILY [facility] Last Admin: 11/12/24 07:40 Dose: 90 mg Multivitamins/Vitamin C (Multivitamin Tablet) 1 tab PO DAILY [facility] Last Admin: 11/12/24 08:50 Dose: 1 tab Nicotine (Nicotine 21 Mg Patch.Td24) 21 mg TRANSDERMA DAILY PRN PRN Reason: smoking cessation Last Admin: 11/12/24 08:57 Dose: 21 mg Nicotine Polacrilex (Nicotine Polacrilex 2 Mg Gum) 4 mg BUCCAL Q2H PRN PRN Reason: nicotine cravings Last Admin: 11/12/24 05:33 Dose: 4 mg Olanzapine (Olanzapine 5 Mg Tablet) 5 mg PO TID PRN PRN Reason: agitation Last Admin: 11/08/24 16:35 Dose: 5 mg Olanzapine (Olanzapine 10 Mg Tablet) 20 mg PO BEDTIME [facility] Last Admin: 11/11/24 20:44 Dose: 20 mg Oxcarbazepine (Oxcarbazepine 300 Mg Tablet) 300 mg PO BID [facility] Last Admin: 11/12/24 08:50 Dose: 300 mg Quetiapine Fumarate (Quetiapine Fumarate 25 Mg Tablet) 75 mg PO BID PRN PRN Reason: moderate Anxiety Trazodone HCl (Trazodone Hcl 50 Mg Tablet) 50 mg PO BEDTIME MRX1 PRN PRN Reason: Insomnia Last Admin: 11/12/24 03:00 Dose: 50 mg Allergies Allergies Allergy/AdvReac Type Severity Reaction Status Date / Time Sulfa (Sulfonamide Allergy Unknown Unknown Verified 10/31/24 10:38 Antibiotics) Assessment & Plan Assessment & Plan (1) Schizoaffective disorder, depressive type: Status: Acute Code(s): F25.1 - Schizoaffective disorder, depressive type Plan 11/05: Patient notes that she continues to experience anxiety symptoms which waxes and wanes. She also feels angry. Her symptoms are chronic but worsened recently. Her current regimen is effective in controlling her symptoms. She has been sleeping throughout the night. She denies current SI/HI/AVH. 11/06- Denies SI,HI,AH,VH. Today she reports increase in depressive sx as she is missing her ex. Triglycerides are high- Lopid 600 mg bid ac trial 11/07 tearful; panic at times; talked about struggles with loneliness and feeling abandoned by family. No AVH. To help w/ anxiety, Discussed medications and agreed to increase Gabapentin back to 800mg tid (up from 600mg); also to make scheduled Clonidine TID 11/08 Pt wants to start on Metformin (internal communications writer reviewed risks/side effects) due to weight gain of Zyprexa She also agrees to start Trileptal for anxiety and mood stability. 11/09-Continue trial 11/10- Increase Olanzapine and Trileptal 11/11 Continue regime. TDN /. 11/12 TDN Retraction Increase prn Seroquel DC Lorazepam Klonopin 1 mg bid starting Meformin ER 500mg qhs starting Tripleptal 150mg BID for anxiety PLAN: Admit to M5. CV 15 minutes check. Increased Gabapentin to 800mg tid Clonidine changed from 0.1 mg TID scheduled (was BID scheduled) to target anxiety. Continue remainder of regime. Diagnostics as needed. Collateral contact. Encouraged full milieu. Discharge planning. Reason for continued inpatient stay Substantial Risk for: rapid decompensation Time Spent With Patient Time: Total time managing care of this patient today ____ minutes.
[2024-11-12] MEDS: clonazePAM 1 MG TABLET PO ×2 (12:05→20:06)
--- NOTE | 2024-11-12 12:38 | PC.NURSE ---
Pt retracted 3 day notice. CAW, ME, ST aware.
[2024-11-12 14:16] VITALS: BP 107/51
[2024-11-12] MEDS: metFORMIN HCl ER 500 MG TAB.ER.24H PO (16:59)
[2024-11-12 20:00] VITALS: BP 129/75; PULSE 84; TEMP 36.7; O2SAT 99
[2024-11-12] MEDS: OLANZapine 10 MG TABLET 20 MG PO (20:07)
[2024-11-12 20:12] VITALS: BP 129/82
[2024-11-12] MEDS: QUEtiapine Fumarate 25 MG TABLET 75 MG PO (20:31)
[2024-11-13] MEDS: Nicotine Polacrilex 2 MG GUM 4 MG BUCCAL ×5 (04:56→21:02)
[2024-11-13] MEDS: OLANZapine 5 MG TABLET PO (04:56)
[2024-11-13] MEDS: QUEtiapine Fumarate 25 MG TABLET 75 MG PO ×2 (06:45→18:22)
[2024-11-13] MEDS: gemfibroziL 600 MG TABLET PO ×2 (06:46→17:33)
--- NOTE | 2024-11-13 06:52 | PC.NURSE ---
At approximately 0640, this patient told this junior technical writer I know it sounds crazy, but I have blood clots in my brain. They put a camera in my butt, I know it sounds weird, but it rinses the clots out of my brain. But now, they're pushing buttons to make me go through withdrawal and make my brain do things. My mom had the controls, and she gave it to my sister, and my sister gave it to someone who doesn't deserve it. I need to talk to [place], she knows. I want you to go downstairs, they can tell you about the camera if you don't believe me. They're making me suffer just for talking to you. Patient is currently about to take a warm shower, which she finds soothing.
[2024-11-13] MEDS: methADONE HCl 20 MG/2 ML ORAL.CONC 90 MG PO (07:53)
[2024-11-13 08:00] VITALS: BP 133/61; PULSE 83; RESP 18; TEMP 36.6; O2SAT 99
[2024-11-13] MEDS: clonazePAM 1 MG TABLET PO ×2 (08:27→21:02)
[2024-11-13] MEDS: Gabapentin 400 MG CAPSULE 800 MG PO ×3 (08:27→21:02)
[2024-11-13] MEDS: Nicotine 21 MG PATCH.TD24 TRANSDERMA (08:27)
[2024-11-13] MEDS: OXcarbazepine 300 MG TABLET PO ×2 (08:28→21:02)
[2024-11-13] MEDS: cloNIDine HCL 0.1 MG TABLET PO ×3 (08:28→21:01)
[2024-11-13] MEDS: Multivitamin TABLET 1 TAB PO (08:29)
--- NOTE | 2024-11-13 10:21 | HO.PSYCHPN ---
Subjective Subjective Date of Service: 11/13/24 Reason For Visit: Schizoaffective Disorder Polysubstance use disorde Subjective Notes: Conditional Voluntary Healthcare Proxy: No Guardianship: No Medical Problems Affecting Mental Status: No Interim History: Reports anxiety is decreased. More interactive, attending groups No discussion with tw regarding delusional content expressed to team. Overall reports some improvement today. Medication Compliance: Yes Side effects from medications: No Attending Groups: Yes Review of Systems Acute medical concerns: No Medical Review of Systems: unchanged Review of Systems Review of Systems Denies today Mental Status Exam Mental Status Exam Patient Appearance: Appropriate Patient Orientation: Person, Place, Time and Situation Level of Consciousness: Alert Patient Behavior: Talkative, Anxious, Distractible and Good Eye Contact Mood Description: Flat Affect Description: Flat Patient Cognition Impaired: No Ability to Follow Directions: Good Speech Pattern: Spontaneous Speech Memory Description: Episodic Impaired Hallucinations: None (denies when we met) Delusions: Paranoid Ideation (mild-however, able to talk concerns through) Thought Process: Distracted and Rumination Thought Content: positive for Circumstantial, positive for Goal Oriented, positive for Perseveration and positive for Suicidal Ideation (denies) Depressive Symptoms: Increased Anxiety, Diff. Making Decisions, Increased Irritability, Unhappiness, Increased Fatigue and Loss of Energy Judgement: Fair Diagnostics Vital Signs (24Hr): Vital Signs - 24 hr 11/12/24 14:16 11/12/24 20:00 11/12/24 20:12 Temperature 98.1 F Pulse Rate 84 Respiratory Rate Blood Pressure 107/51 L 129/75 129/82 Pulse Oximetry 99 Oxygen Delivery Method Room Air 11/13/24 08:00 Temperature 98 F Pulse Rate 83 Respiratory Rate 18 Blood Pressure 133/61 Pulse Oximetry 99 Oxygen Delivery Method Room Air BMI result Body Mass Index 30.6 Labs 10/31/24 12:23 11/09/24 07:39 Labs: Laboratory Results - last 48 hr 11/12/24 05:46 Urine Opiates Screen Not Detected Ur Buprenorphine Scrn Not Detected Ur Oxycodone Screen Not Detected Urine Methadone Screen Positive H Urine Fentanyl Screen POSITIVE H Ur Barbiturates Screen Not Detected Ur Phencyclidine Scrn Not Detected Ur Amphetamines Screen Not Detected U Benzodiazepines Scrn Not Detected Urine Cocaine Screen Not Detected U Marijuana (THC) Screen Not Detected Medications Medications Current Medications Acetaminophen (Acetaminophen 325 Mg Tablet) 650 mg PO Q6H PRN PRN Reason: Headache/Pain, Scale 1-10 Last Admin: 11/12/24 21:25 Dose: 650 mg Al Hydroxide/Mg Hydroxide (Magnesium Hydrox/Alum Hydrox 30 Ml Oral.Susp) 30 ml PO Q6H PRN PRN Reason: Heartburn/Nausea Last Admin: 11/12/24 02:27 Dose: 30 ml Clonazepam (Clonazepam 1 Mg Tablet) 1 mg PO BID [facility] Last Admin: 11/13/24 08:27 Dose: 1 mg Clonidine HCl (Clonidine Hcl 0.1 Mg Tablet) 0.1 mg PO TID [facility]; Protocol Last Admin: 11/13/24 08:28 Dose: 0.1 mg Gabapentin (Gabapentin 400 Mg Capsule) 800 mg PO TID [facility] Last Admin: 11/13/24 08:27 Dose: 800 mg Gemfibrozil (Gemfibrozil 600 Mg Tablet) 600 mg PO BIDAC [facility] Last Admin: 11/13/24 06:46 Dose: 600 mg Hydroxyzine HCl (Hydroxyzine Hcl 50 Mg Tablet) 50 mg PO TID PRN PRN Reason: Anxiety Last Admin: 11/11/24 16:33 Dose: 50 mg Magnesium Hydroxide (Milk Of Magnesia 30 Ml Oral.Susp) 30 ml PO DAILY PRN PRN Reason: Constipation Metformin HCl (Metformin Hcl Er 500 Mg Tab.Er.24h) 500 mg PO DAILY@1700 [facility] Last Admin: 11/12/24 16:59 Dose: 500 mg Methadone HCl (Methadone Hcl 20 Mg/2 Ml Oral.Conc) 90 mg PO DAILY [facility] Last Admin: 11/13/24 07:53 Dose: 90 mg Multivitamins/Vitamin C (Multivitamin Tablet) 1 tab PO DAILY [facility] Last Admin: 11/13/24 08:29 Dose: 1 tab Nicotine (Nicotine 21 Mg Patch.Td24) 21 mg TRANSDERMA DAILY PRN PRN Reason: smoking cessation Last Admin: 11/13/24 08:27 Dose: 21 mg Nicotine Polacrilex (Nicotine Polacrilex 2 Mg Gum) 4 mg BUCCAL Q2H PRN PRN Reason: nicotine cravings Last Admin: 11/13/24 04:56 Dose: 4 mg Olanzapine (Olanzapine 5 Mg Tablet) 5 mg PO TID PRN PRN Reason: agitation Last Admin: 11/13/24 04:56 Dose: 5 mg Olanzapine (Olanzapine 10 Mg Tablet) 20 mg PO BEDTIME [facility] Last Admin: 11/12/24 20:07 Dose: 20 mg Oxcarbazepine (Oxcarbazepine 300 Mg Tablet) 300 mg PO BID [facility] Last Admin: 11/13/24 08:28 Dose: 300 mg Quetiapine Fumarate (Quetiapine Fumarate 25 Mg Tablet) 75 mg PO BID PRN PRN Reason: moderate Anxiety Last Admin: 11/13/24 06:45 Dose: 75 mg Trazodone HCl (Trazodone Hcl 50 Mg Tablet) 50 mg PO BEDTIME MRX1 PRN PRN Reason: Insomnia Last Admin: 11/12/24 03:00 Dose: 50 mg Allergies Allergies Allergy/AdvReac Type Severity Reaction Status Date / Time Sulfa (Sulfonamide Allergy Unknown Unknown Verified 10/31/24 10:38 Antibiotics) Assessment & Plan Assessment & Plan (1) Schizoaffective disorder, depressive type: Status: Acute Code(s): F25.1 - Schizoaffective disorder, depressive type Plan 11/05: Patient notes that she continues to experience anxiety symptoms which waxes and wanes. She also feels angry. Her symptoms are chronic but worsened recently. Her current regimen is effective in controlling her symptoms. She has been sleeping throughout the night. She denies current SI/HI/AVH. 11/06- Denies SI,HI,AH,VH. Today she reports increase in depressive sx as she is missing her ex. Triglycerides are high- Lopid 600 mg bid ac trial 11/07 tearful; panic at times; talked about struggles with loneliness and feeling abandoned by family. No AVH. To help w/ anxiety, Discussed medications and agreed to increase Gabapentin back to 800mg tid (up from 600mg); also to make scheduled Clonidine TID 11/08 Pt wants to start on Metformin (resume writer reviewed risks/side effects) due to weight gain of Zyprexa She also agrees to start Trileptal for anxiety and mood stability. 11/09-Continue trial 11/10- Increase Olanzapine and Trileptal 11/11 Continue regime. TDN 11/13. 11/12 TDN Retraction Increase prn Seroquel DC Lorazepam Klonopin 1 mg bid 11/13 Continue regime starting Meformin ER 500mg qhs starting Tripleptal 150mg BID for anxiety PLAN: Admit to M5. CV 15 minutes check. Increased Gabapentin to 800mg tid Clonidine changed from 0.1 mg TID scheduled (was BID scheduled) to target anxiety. Continue remainder of regime. Diagnostics as needed. Collateral contact. Encouraged full milieu. Discharge planning. Reason for continued inpatient stay Substantial Risk for: rapid decompensation Time Spent With Patient Time: Total time managing care of this patient today ____ minutes.
[2024-11-13 14:43] VITALS: BP 131/60
[2024-11-13] MEDS: Acetaminophen 325 MG TABLET 650 MG PO ×2 (14:43→21:00)
[2024-11-13] MEDS: Benzocaine 20 % Oral Gel 9 GM TUBE 1 APPL MUCOUS MEM (16:33)
[2024-11-13] MEDS: metFORMIN HCl ER 500 MG TAB.ER.24H PO (17:33)
[2024-11-13 20:00] VITALS: BP 106/67; PULSE 81; RESP 16; TEMP 36.8; O2SAT 100
[2024-11-13 21:01] VITALS: BP 106/67
[2024-11-13] MEDS: OLANZapine 10 MG TABLET 20 MG PO (21:01)
[2024-11-13] MEDS: hydrOXYzine HCL 50 MG TABLET PO (21:04)
[2024-11-14] MEDS: Nicotine Polacrilex 2 MG GUM 4 MG BUCCAL ×4 (00:16→20:16)
[2024-11-14] MEDS: OLANZapine 5 MG TABLET PO ×2 (00:16→08:25)
[2024-11-14] MEDS: QUEtiapine Fumarate 25 MG TABLET 75 MG PO (00:17)
[2024-11-14] MEDS: traZODone HCL 50 MG TABLET PO ×3 (00:17→20:24)
[2024-11-14] MEDS: hydrOXYzine HCL 50 MG TABLET PO ×2 (01:37→20:24)
[2024-11-14] MEDS: LORazepam 1 MG TABLET 2 MG PO (04:50)
[2024-11-14] MEDS: chlorproMAZINE HCl 100 MG TABLET PO (04:50)
--- NOTE | 2024-11-14 07:29 | P.PNPSI_ITS ---
Subjective Subjective Date of Service: 11/14/24 Reason For Visit: Schizoaffective Disorder Polysubstance use disorde Subjective Notes: Conditional Voluntary Healthcare Proxy: No Guardianship: No Medical Problems Affecting Mental Status: No Interim History: 34 reversion to psychosis around needing to get camera out of her head via [employer]- was up all night agitated, screaming got urgent meds at 4:30am and has been sleeping much of the day- urine positive for fentynl- 11/12 despite being inpatient Medication Compliance: Yes Side effects from medications: No Attending Groups: No Review of Systems Acute medical concerns: No Medical Review of Systems: unchanged Mental Status Exam Mental Status Exam Patient Appearance: Disheveled and Unkempt Patient Orientation: Person Level of Consciousness: Drowsy and Sedated Delusions: Present (that camera is in her head) Depressive Symptoms: Difficulty Sleeping Abnormal Motor Activity Signs and Symptoms: Agitation Judgement: Poor Diagnostics Vital Signs (24Hr): Vital Signs - 24 hr 11/13/24 08:00 11/13/24 14:43 11/13/24 20:00 Temperature 98 F 98.2 F Pulse Rate 83 81 Respiratory Rate 18 16 Blood Pressure 133/61 131/60 106/67 Pulse Oximetry 99 100 Oxygen Delivery Method Room Air Room Air 11/13/24 21:01 Temperature Pulse Rate Respiratory Rate Blood Pressure 106/67 Pulse Oximetry Oxygen Delivery Method BMI result Body Mass Index 30.6 Labs 10/31/24 12:23 11/09/24 07:39 Medications Medications Current Medications Acetaminophen (Acetaminophen 325 Mg Tablet) 650 mg PO Q6H PRN PRN Reason: Headache/Pain, Scale 1-10 Last Admin: 11/13/24 21:00 Dose: 650 mg Al Hydroxide/Mg Hydroxide (Magnesium Hydrox/Alum Hydrox 30 Ml Oral.Susp) 30 ml PO Q6H PRN PRN Reason: Heartburn/Nausea Last Admin: 11/12/24 02:27 Dose: 30 ml Benzocaine (Benzocaine 20 % Oral Gel 9 Gm Tube) 1 appl MUCOUS MEM QID PRN; Protocol PRN Reason: dental pain Last Admin: 11/13/24 16:33 Dose: 1 appl Clonazepam (Clonazepam 1 Mg Tablet) 1 mg PO BID DANE Last Admin: 11/13/24 21:02 Dose: 1 mg Clonidine HCl (Clonidine Hcl 0.1 Mg Tablet) 0.1 mg PO TID DANE; Protocol Last Admin: 11/13/24 21:01 Dose: 0.1 mg Gabapentin (Gabapentin 400 Mg Capsule) 800 mg PO TID [facility] Last Admin: 11/13/24 21:02 Dose: 800 mg Gemfibrozil (Gemfibrozil 600 Mg Tablet) 600 mg PO BIDAC [facility] Last Admin: 11/13/24 17:33 Dose: 600 mg Hydroxyzine HCl (Hydroxyzine Hcl 50 Mg Tablet) 50 mg PO TID PRN PRN Reason: Anxiety Last Admin: 11/14/24 01:37 Dose: 50 mg Magnesium Hydroxide (Milk Of Magnesia 30 Ml Oral.Susp) 30 ml PO DAILY PRN PRN Reason: Constipation Metformin HCl (Metformin Hcl Er 500 Mg Tab.Er.24h) 500 mg PO DAILY@1700 [facility] Last Admin: 11/13/24 17:33 Dose: 500 mg Methadone HCl (Methadone Hcl 20 Mg/2 Ml Oral.Conc) 90 mg PO DAILY [facility] Last Admin: 11/13/24 07:53 Dose: 90 mg Multivitamins/Vitamin C (Multivitamin Tablet) 1 tab PO DAILY [facility] Last Admin: 11/13/24 08:29 Dose: 1 tab Nicotine (Nicotine 21 Mg Patch.Td24) 21 mg TRANSDERMA DAILY PRN PRN Reason: smoking cessation Last Admin: 11/13/24 08:27 Dose: 21 mg Nicotine Polacrilex (Nicotine Polacrilex 2 Mg Gum) 4 mg BUCCAL Q2H PRN PRN Reason: nicotine cravings Last Admin: 11/14/24 04:55 Dose: 4 mg Olanzapine (Olanzapine 5 Mg Tablet) 5 mg PO TID PRN PRN Reason: agitation Last Admin: 11/14/24 00:16 Dose: 5 mg Olanzapine (Olanzapine 10 Mg Tablet) 20 mg PO BEDTIME [facility] Last Admin: 11/13/24 21:01 Dose: 20 mg Oxcarbazepine (Oxcarbazepine 300 Mg Tablet) 300 mg PO BID [facility] Last Admin: 11/13/24 21:02 Dose: 300 mg Quetiapine Fumarate (Quetiapine Fumarate 25 Mg Tablet) 75 mg PO BID PRN PRN Reason: moderate Anxiety Last Admin: 11/14/24 00:17 Dose: 75 mg Trazodone HCl (Trazodone Hcl 50 Mg Tablet) 50 mg PO BEDTIME MRX1 PRN PRN Reason: Insomnia Last Admin: 11/14/24 01:37 Dose: 50 mg Allergies Allergies Allergy/AdvReac Type Severity Reaction Status Date / Time Sulfa (Sulfonamide Allergy Unknown Unknown Verified 10/31/24 10:38 Antibiotics) Assessment & Plan Assessment & Plan (1) Schizoaffective disorder, depressive type: Status: Acute Code(s): F25.1 - Schizoaffective disorder, depressive type Plan 11/05: Patient notes that she continues to experience anxiety symptoms which waxes and wanes. She also feels angry. Her symptoms are chronic but worsened recently. Her current regimen is effective in controlling her symptoms. She has been sleeping throughout the night. She denies current SI/HI/AVH. 11/06- Denies SI,HI,AH,VH. Today she reports increase in depressive sx as she is missing her ex. Triglycerides are high- Lopid 600 mg bid ac trial 11/07 tearful; panic at times; talked about struggles with loneliness and feeling abandoned by family. No AVH. To help w/ anxiety, Discussed medications and agreed to increase Gabapentin back to 800mg tid (up from 600mg); also to make scheduled Clonidine TID 11/08 Pt wants to start on Metformin (race and sports book writer reviewed risks/side effects) due to weight gain of Zyprexa She also agrees to start Trileptal for anxiety and mood stability. 11/09-Continue trial 11/10- Increase Olanzapine and Trileptal 11/11 Continue regime. TDN 5/2. 11/12 TDN Retraction Increase prn Seroquel DC Lorazepam Klonopin 1 mg bid 11/13 Continue regime 11/14 got po ativan 2mg and chlorpromazine at 4:30 am after yelling and screaming and being up all night delusional around camera being in her head starting Meformin ER 500mg qhs starting Tripleptal 150mg BID for anxiety PLAN: Admit to M5. CV 15 minutes check. Increased Gabapentin to 800mg tid Clonidine changed from 0.1 mg TID scheduled (was BID scheduled) to target anxiety. Continue remainder of regime. Diagnostics as needed. Collateral contact. Encouraged full milieu. Discharge planning. Reason for continued inpatient stay Substantial Risk for: rapid decompensation Time Spent With Patient Time: Total time managing care of this patient today ____ minutes.
[2024-11-14] MEDS: methADONE HCl 20 MG/2 ML ORAL.CONC 90 MG PO (07:48)
[2024-11-14 08:09] VITALS: BP 159/69; PULSE 110; TEMP 36.6; O2SAT 98
[2024-11-14] MEDS: Gabapentin 400 MG CAPSULE 800 MG PO ×3 (08:24→20:23)
[2024-11-14] MEDS: gemfibroziL 600 MG TABLET PO ×2 (08:24→16:28)
[2024-11-14] MEDS: OXcarbazepine 300 MG TABLET PO ×2 (08:25→20:23)
[2024-11-14] MEDS: Multivitamin TABLET 1 TAB PO (08:25)
[2024-11-14] MEDS: clonazePAM 1 MG TABLET PO ×3 (08:25→20:23)
[2024-11-14] MEDS: Nicotine 21 MG PATCH.TD24 TRANSDERMA (08:25)
[2024-11-14] MEDS: cloNIDine HCL 0.1 MG TABLET PO ×2 (08:25→14:28)
[2024-11-14 14:28] VITALS: BP 119/57
[2024-11-14] MEDS: metFORMIN HCl ER 500 MG TAB.ER.24H PO (16:28)
[2024-11-14 20:00] VITALS: BP 94/55; PULSE 80; RESP 16; TEMP 36.5; O2SAT 96
[2024-11-14] MEDS: OLANZapine 10 MG TABLET 20 MG PO (20:24)
[2024-11-15] MEDS: Benzocaine 20 % Oral Gel 9 GM TUBE 1 APPL MUCOUS MEM (00:47)
[2024-11-15] MEDS: methADONE HCl 20 MG/2 ML ORAL.CONC 90 MG PO (07:46)
[2024-11-15 07:47] VITALS: BP 101/65
[2024-11-15] MEDS: OXcarbazepine 300 MG TABLET PO ×2 (07:47→21:20)
[2024-11-15] MEDS: clonazePAM 1 MG TABLET PO ×3 (07:47→21:23)
[2024-11-15] MEDS: Gabapentin 400 MG CAPSULE 800 MG PO ×3 (07:47→21:21)
[2024-11-15] MEDS: cloNIDine HCL 0.1 MG TABLET PO ×3 (07:47→21:21)
[2024-11-15] MEDS: gemfibroziL 600 MG TABLET PO ×2 (07:47→16:41)
[2024-11-15] MEDS: Multivitamin TABLET 1 TAB PO (07:48)
[2024-11-15] MEDS: Nicotine Polacrilex 2 MG GUM 4 MG BUCCAL ×6 (07:58→20:49)
[2024-11-15] MEDS: Nicotine 21 MG PATCH.TD24 TRANSDERMA (07:59)
[2024-11-15 08:00] VITALS: BP 116/63; PULSE 68; TEMP 36.9; O2SAT 97
--- NOTE | 2024-11-15 08:08 | P.PNPSI_ITS ---
Subjective Subjective Date of Service: 11/15/24 Reason For Visit: Schizoaffective Disorder Polysubstance use disorde Subjective Notes: Conditional Voluntary Healthcare Proxy: No Guardianship: No Medical Problems Affecting Mental Status: No Interim History: 34 yo reports feeling back to usual self- I increased her meds from bid to tid on day after up all a night and needing prns to sleep - with psychotic episode=- Today feeling good and hoping to still go tomorrow- Medication Compliance: Yes Side effects from medications: No Attending Groups: Intermittent Review of Systems Acute medical concerns: No Medical Review of Systems: changed Review of Systems: improved mental state- decline likely due to having gotten fentanyl from visitor Mental Status Exam Mental Status Exam Patient Appearance: Appropriate and Unkempt (mildly) Patient Orientation: Person, Place, Time and Situation Level of Consciousness: Awake and Alert Patient Behavior: Appropriate, Talkative, Hyperactive and Good Eye Contact Mood Description: Happy Affect Description: Expansive Patient Cognition Impaired: No Ability to Follow Directions: Fair Speech Pattern: Clear Hallucinations: None Delusions: Present (not focused on today) Thought Process: Intact and Goal Oriented Thought Content: positive for Intact and positive for Goal Oriented Judgement: Fair Diagnostics Vital Signs (24Hr): Vital Signs - 24 hr 11/14/24 08:09 11/14/24 14:28 11/14/24 20:00 Temperature 98 F 97.7 F Pulse Rate 110 H 80 Respiratory Rate 16 Blood Pressure 159/69 H 119/57 L 94/55 L Pulse Oximetry 98 96 Oxygen Delivery Method Room Air Room Air 11/15/24 07:47 Temperature Pulse Rate Respiratory Rate Blood Pressure 101/65 Pulse Oximetry Oxygen Delivery Method BMI result Body Mass Index 30.6 Labs 10/31/24 12:23 11/09/24 07:39 Medications Medications Current Medications Acetaminophen (Acetaminophen 325 Mg Tablet) 650 mg PO Q6H PRN PRN Reason: Headache/Pain, Scale 1-10 Last Admin: 11/13/24 21:00 Dose: 650 mg Al Hydroxide/Mg Hydroxide (Magnesium Hydrox/Alum Hydrox 30 Ml Oral.Susp) 30 ml PO Q6H PRN PRN Reason: Heartburn/Nausea Last Admin: 11/12/24 02:27 Dose: 30 ml Benzocaine (Benzocaine 20 % Oral Gel 9 Gm Tube) 1 appl MUCOUS MEM QID PRN; Protocol PRN Reason: dental pain Last Admin: 11/15/24 00:47 Dose: 1 appl Clonazepam (Clonazepam 1 Mg Tablet) 1 mg PO TID [facility] Last Admin: 11/15/24 07:47 Dose: 1 mg Clonidine HCl (Clonidine Hcl 0.1 Mg Tablet) 0.1 mg PO TID [facility]; Protocol Last Admin: 11/15/24 07:47 Dose: 0.1 mg Gabapentin (Gabapentin 400 Mg Capsule) 800 mg PO TID [facility] Last Admin: 11/15/24 07:47 Dose: 800 mg Gemfibrozil (Gemfibrozil 600 Mg Tablet) 600 mg PO BIDAC [facility] Last Admin: 11/15/24 07:47 Dose: 600 mg Hydroxyzine HCl (Hydroxyzine Hcl 50 Mg Tablet) 50 mg PO TID PRN PRN Reason: Anxiety Last Admin: 11/14/24 20:24 Dose: 50 mg Magnesium Hydroxide (Milk Of Magnesia 30 Ml Oral.Susp) 30 ml PO DAILY PRN PRN Reason: Constipation Metformin HCl (Metformin Hcl Er 500 Mg Tab.Er.24h) 500 mg PO DAILY@1700 [facility] Last Admin: 11/14/24 16:28 Dose: 500 mg Methadone HCl (Methadone Hcl 20 Mg/2 Ml Oral.Conc) 90 mg PO DAILY [facility] Last Admin: 11/15/24 07:46 Dose: 90 mg Multivitamins/Vitamin C (Multivitamin Tablet) 1 tab PO DAILY [facility] Last Admin: 11/15/24 07:48 Dose: 1 tab Nicotine (Nicotine 21 Mg Patch.Td24) 21 mg TRANSDERMA DAILY PRN PRN Reason: smoking cessation Last Admin: 11/15/24 07:59 Dose: 21 mg Nicotine Polacrilex (Nicotine Polacrilex 2 Mg Gum) 4 mg BUCCAL Q2H PRN PRN Reason: nicotine cravings Last Admin: 11/15/24 07:58 Dose: 4 mg Olanzapine (Olanzapine 5 Mg Tablet) 5 mg PO TID PRN PRN Reason: agitation Last Admin: 11/14/24 08:25 Dose: 5 mg Olanzapine (Olanzapine 10 Mg Tablet) 20 mg PO BEDTIME [facility] Last Admin: 11/14/24 20:24 Dose: 20 mg Oxcarbazepine (Oxcarbazepine 300 Mg Tablet) 300 mg PO BID [facility] Last Admin: 11/15/24 07:47 Dose: 300 mg Quetiapine Fumarate (Quetiapine Fumarate 25 Mg Tablet) 75 mg PO BID PRN PRN Reason: moderate Anxiety Last Admin: 11/14/24 00:17 Dose: 75 mg Trazodone HCl (Trazodone Hcl 50 Mg Tablet) 50 mg PO BEDTIME MRX1 PRN PRN Reason: Insomnia Last Admin: 11/14/24 20:24 Dose: 50 mg Allergies Allergies Allergy/AdvReac Type Severity Reaction Status Date / Time Sulfa (Sulfonamide Allergy Unknown Unknown Verified 10/31/24 10:38 Antibiotics) Assessment & Plan Assessment & Plan (1) Schizoaffective disorder, depressive type: Status: Acute Code(s): F25.1 - Schizoaffective disorder, depressive type Plan 11/05: Patient notes that she continues to experience anxiety symptoms which waxes and wanes. She also feels angry. Her symptoms are chronic but worsened recently. Her current regimen is effective in controlling her symptoms. She has been sleeping throughout the night. She denies current SI/HI/AVH. 11/06- Denies SI,HI,AH,VH. Today she reports increase in depressive sx as she is missing her ex. Triglycerides are high- Lopid 600 mg bid ac trial 11/07 tearful; panic at times; talked about struggles with loneliness and feeling abandoned by family. No AVH. To help w/ anxiety, Discussed medications and agreed to increase Gabapentin back to 800mg tid (up from 600mg); also to make scheduled Clonidine TID 11/08 Pt wants to start on Metformin (curriculum writer reviewed risks/side effects) due to weight gain of Zyprexa She also agrees to start Trileptal for anxiety and mood stability. 11/09-Continue trial 11/10- Increase Olanzapine and Trileptal 11/11 Continue regime. TDN 11/13. 11/12 TDN Retraction Increase prn Seroquel DC Lorazepam Klonopin 1 mg bid 11/13 Continue regime 11/14 got po ativan 2mg and chlorpromazine at 4:30 am after yelling and screaming and being up all night delusional around camera being in her head 11/15 CTP starting Meformin ER 500mg qhs starting Tripleptal 150mg BID for anxiety PLAN: Admit to M5. CV 15 minutes check. Increased Gabapentin to 800mg tid Clonidine changed from 0.1 mg TID scheduled (was BID scheduled) to target anxiety. Continue remainder of regime. Diagnostics as needed. Collateral contact. Encouraged full milieu. Discharge planning. Patient educated on: medication risk/benefits Informed Consent: understands Reason for continued inpatient stay Substantial Risk for: inability to function and rapid decompensation Time Spent With Patient Time: Total time managing care of this patient today ____ minutes.
[2024-11-15] MEDS: hydrOXYzine HCL 50 MG TABLET PO ×2 (12:43→18:45)
[2024-11-15 14:04] VITALS: BP 101/56
[2024-11-15] MEDS: metFORMIN HCl ER 500 MG TAB.ER.24H PO (16:41)
[2024-11-15 20:00] VITALS: BP 123/58; PULSE 85; TEMP 36.9; O2SAT 98
[2024-11-15] MEDS: Acetaminophen 325 MG TABLET 650 MG PO (20:15)
[2024-11-15] MEDS: QUEtiapine Fumarate 25 MG TABLET 75 MG PO (21:20)
[2024-11-15] MEDS: traZODone HCL 50 MG TABLET PO (21:20)
[2024-11-15 21:21] VITALS: BP 123/58
[2024-11-15] MEDS: OLANZapine 10 MG TABLET 20 MG PO (21:23)
[2024-11-16] MEDS: methADONE HCl 20 MG/2 ML ORAL.CONC 90 MG PO (07:43)
[2024-11-16] MEDS: Nicotine Polacrilex 2 MG GUM 4 MG BUCCAL ×2 (07:45→10:28)
[2024-11-16 07:50] VITALS: BP 109/59; PULSE 89; RESP 18; TEMP 36.8; O2SAT 99
[2024-11-16] MEDS: Nicotine 21 MG PATCH.TD24 TRANSDERMA (08:11)
[2024-11-16] MEDS: Gabapentin 400 MG CAPSULE 800 MG PO (08:12)
[2024-11-16] MEDS: cloNIDine HCL 0.1 MG TABLET PO (08:12)
[2024-11-16] MEDS: clonazePAM 1 MG TABLET PO (08:12)
[2024-11-16] MEDS: Multivitamin TABLET 1 TAB PO (08:13)
[2024-11-16] MEDS: OXcarbazepine 300 MG TABLET PO (08:13)
[2024-11-16] MEDS: gemfibroziL 600 MG TABLET PO (08:13)
[2024-11-16 08:23] LABS: Creatinine Clr Calc Pharmacy 97.7; Estimated Glomerular Filt Rate > 60
--- NOTE | 2024-11-16 17:20 | P.DS_ITS ---
DS: Providers Provider Date of admission: 11/03/24 11:45 Primary care physician: None Physician DS: Diagnosis Discharge Diagnosis (1) Schizoaffective disorder, depressive type: Status: Acute DS: Medications Discharge Medications Home Medications: Home Medications ?Medication ?Instructions ?Recorded ?Confirmed methadone 10 mg/mL oral concentrate 90 mg PO DAILY 10/31/24 10/31/24 Previous Rx's ?Medication ?Instructions ?Recorded acetaminophen 325 mg tablet 650 mg (2 x 325 mg) PO Q6H PRN 11/16/24 Headache/Pain, Scale 1-10 #0 tabs benzocaine 20 % mucosal gel 1 appl mucous membrane QID PRN 11/16/24 (Anbesol (benzocaine) Maximum dental pain #7 grams Strength) clonazepam 1 mg tablet (Klonopin) 1 mg PO BID #14 tabs 11/16/24 clonidine HCl 0.1 mg tablet 0.1 mg PO TID #90 tabs 11/16/24 gabapentin 800 mg tablet 800 mg PO TID #21 tabs 11/16/24 gemfibrozil 600 mg tablet 600 mg PO BIDAC #60 tabs 11/16/24 hydroxyzine pamoate 50 mg capsule 50 mg PO TID PRN Anxiety 30 days 11/16/24 #90 caps metformin 500 mg tablet,extended 500 mg PO DAILY@1700 #30 tabs 11/16/24 release 24 hr multivitamin (Daily-Shwetha tablet) 1 tab PO DAILY #30 tabs 11/16/24 nicotine (polacrilex) 4 mg gum 4 mg buccal Q2H PRN nicotine 11/16/24 cravings 30 days #100 ea nicotine 21 mg/24 hr daily 21 mg transdermal DAILY PRN 11/16/24 transdermal patch smoking cessation 28 days #28 ea olanzapine 20 mg tablet 20 mg PO BEDTIME #30 tabs 11/16/24 olanzapine 5 mg tablet 5 mg PO TID PRN agitation 30 days 11/16/24 #30 tabs oxcarbazepine 300 mg tablet 300 mg PO BID #60 tabs 11/16/24 quetiapine 25 mg tablet 75 mg (3 x 25 mg) PO BID PRN 11/16/24 moderate Anxiety #90 tabs trazodone 50 mg tablet 50 mg PO BEDTIME MRX1 PRN Insomnia 11/16/24 #60 tabs Data Data Completed and Pending Completed studies during hospitalization [Text1]: 11/12/24 11/16/24 05:46 07:54 Creatinine 0.76 Estim Creat Clear Calc 97.7 Estimated GFR > 60 Urine Opiates Screen Not Detected Ur Buprenorphine Scrn Not Detected Ur Oxycodone Screen Not Detected Urine Methadone Screen Positive H Urine Fentanyl Screen POSITIVE H Ur Barbiturates Screen Not Detected Ur Phencyclidine Scrn Not Detected Ur Amphetamines Screen Not Detected U Benzodiazepines Scrn Not Detected Urine Cocaine Screen Not Detected U Marijuana (THC) Screen Not Detected DS: Summary Time Spent with Patient Time attestation: Total time managing care of this patient today ____ minutes. Discharge Plan Discharge Anticipated Discharge Date/Time: 11/16/24 12:00 Patient Disposition: Home, Self-Care Discharge Diagnosis: Schizoaffective Disorder, Depressed Opiate Use Disorder, currently on Methadone Referrals: [facility] Julio Mann [Other] - 1 Week (Community Support person offered to you through your health insurance. Julio can support with accessing resources in the community. ) [facility] Psychiatry with Lakshmi Vides [Other] - 12/18/24 2:00 pm (Telehealth) [facility] Store Receiver [Other] - 1 Week (A referral has been placed for a aircraft launch and recovery technician. ) PCP [Other] - 1 Week Discharge Medications: New quetiapine 25 mg Tablet 75 mg PO BID PRN (Reason: moderate Anxiety) Qty: 90 0RF clonidine HCl 0.1 mg Tablet 0.1 mg PO TID Qty: 90 0RF Protocol: Hold for SBP< HOLD for SBP < : 90 acetaminophen 325 mg Tablet 650 mg PO Q6H PRN (Reason: Headache/Pain, Scale 1-10) Qty: 0 0RF trazodone 50 mg Tablet 50 mg PO BEDTIME MRX1 PRN (Reason: Insomnia) Qty: 60 0RF oxcarbazepine 300 mg Tablet 300 mg PO BID Qty: 60 0RF gemfibrozil 600 mg Tablet 600 mg PO BIDAC Qty: 60 0RF Anbesol (benzocaine) Max Str 20 % Gel 1 appl mucous membrane QID PRN (Reason: dental pain) Qty: 7 0RF Protocol: Apply to: Apply to: teeth multivitamin [Daily-Shwetha] Tablet 1 tab PO DAILY Qty: 30 0RF metformin 500 mg Tablet Extended Release 24 Hr 500 mg PO DAILY@1700 Qty: 30 0RF clonazepam [Klonopin] 1 mg tablet 1 mg PO BID Qty: 14 3RF gabapentin 800 mg tablet 800 mg PO TID Qty: 21 3RF olanzapine 20 mg tablet 20 mg PO BEDTIME Qty: 30 0RF Continued methadone 10 mg/mL Concentrate 90 mg PO DAILY olanzapine 5 mg Tablet 5 mg PO TID PRN (Reason: agitation) 30 Days Qty: 30 0RF hydroxyzine pamoate 50 mg Capsule 50 mg PO TID PRN (Reason: Anxiety) 30 Days Qty: 90 0RF nicotine (polacrilex) 4 mg gum 4 mg buccal Q2H PRN (Reason: nicotine cravings) 30 Days Qty: 100 0RF nicotine 21 mg/24 hr Patch 24 Hour 21 mg transdermal DAILY PRN (Reason: smoking cessation) 28 Days Qty: 28 0RF Discontinued olanzapine 10 mg Tablet 10 mg PO BEDTIME 30 Days Qty: 30 0RF clonidine HCl 0.1 mg Tablet 0.1 mg PO TID PRN (Reason: Anxiety) 30 Days Qty: 60 0RF gabapentin 600 mg Tablet 600 mg PO TID 30 Days Qty: 90 0RF quetiapine 50 mg Tablet 50 mg PO BID PRN (Reason: moderate Anxiety) 30 Days Qty: 30 0RF Discharge Orders: Discharge Order (Routine); Ordered 11/16/24 Ordered By: Janett Melton Diet: Advance to usual diet Activity on Discharge: As tolerated Stand Alone Forms: Patient Portal Discharge page, Community Support Print Language: Unable To Collect Care Plan Goals: Mood and Behavioral Stabilization Abstinence from Substances Health Concerns: Mood and Behavioral Stabilization Abstinence from Substances Plan of Treatment: Attend scheduled appointments Take medications as directed Continue addiction treatment plan Call/Return as needed Assessment: Pt has insight and demonstrates good judgment in terms of wanting to pursue treatment. Pt, during this admit, has told the team that she has cameras in her head. When discussed, she reports she did report this, and talks about it when she feels vulnerable and needs support, however, she reports there is no truth/validity to this symptom. Pt has a safety plan that includes presenting to the closest ER or calling 911 if feeling unsafe. Discharge Date/Time: 11/16/24 11:40
== END 2024-11-16 11:40 | disposition home or self-care (01) | DRG 750 ==
LOC: HO.ED 11-03 11:51 → HO.PM5 11-03 12:33
PROVIDERS: Physician Assistant Medical; Psychiatry & Neurology Psychiatry; Social Worker; Admitting Provider Clinical Nurse Specialist Psychiatric/Mental Health, Adult; Emergency Provider Emergency Medicine; Visit Provider Clinical Nurse Specialist Psychiatric/Mental Health, Adult
DX: F25.1 Schizoaffective disorder, depressive type (principal); F11.20 Opioid dependence, uncomplicated; F17.290 Nicotine dependence, other tobacco product, uncomplicated; F19.90 Other psychoactive substance use, unspecified, uncomplicated; Z71.6 Tobacco abuse counseling; Z59.02 Unsheltered homelessness; Z79.84 Long term (current) use of oral hypoglycemic drugs; Z79.899 Other long term (current) drug therapy
CPT/HCPCS: 36415; 80053; 80061; 80143; 80179; 80307; 81001; 82565; 82607; 82746; 83036; 83735; 84439; 84443; 84702; 85025; 93005; 99285; S9485

== ENCOUNTER → 2024-11-03 09:07 | Outpatient (BNV) | payer MEDICAID, SELFPAY | PROVIDERS: Admitting Provider Clinical Nurse Specialist Psychiatric/Mental Health, Adult; Emergency Provider Emergency Medicine; Visit Provider Internal Medicine | DX: Z13.6 Encounter for screening for cardiovascular disorders (principal) | CPT/HCPCS: 93010 ==

== ENCOUNTER → 2024-11-03 11:45 | Outpatient (BNV) | payer OTHER, SELFPAY | PROVIDERS: Admitting Provider Clinical Nurse Specialist Psychiatric/Mental Health, Adult; Emergency Provider Emergency Medicine; Visit Provider Nurse Practitioner Family | DX: F25.1 Schizoaffective disorder, depressive type (principal) | CPT/HCPCS: 99231; 99232 ==

== ENCOUNTER 2024-12-13 18:36 | Inpatient (IN) | payer OTHER, SELFPAY ==
--- NOTE | 2024-12-13 18:38 | ED.GENADULT ---
HPI - General Adult General Chief complaint: Psychiatric Symptoms Stated complaint: crisis Time Seen by Provider: 12/13/24 19:08 Source: patient, RN notes reviewed and old records reviewed Mode of arrival: ambulatory Limitations: no limitations History of Present Illness ED Provider: [place] HAJI narrative: 34-year-old female past medical history significant for schizoaffective disorder, polysubstance abuse presents for evaluation of paranoia. Patient reports she ?need access to the camera footage in my brain. ? She does not elaborate much on why she needs the camera footage She also believes that she is being followed. The patient reports that she is ?not doing well. ? The patient reports that she went to [facility] this morning and was cleared for discharge She reports that she has been off her medications for quite some time but is unsure exactly how long Denies any pain, fevers, chills Related Data Home Medications ?Medication ?Instructions ?Recorded ?Confirmed methadone 10 mg/mL oral concentrate 90 mg PO DAILY 10/31/24 12/14/24 clonidine HCl 0.1 mg tablet 0.1 mg PO TID 12/13/24 12/13/24 quetiapine 25 mg tablet 75 mg PO BID PRN Anxiety 12/13/24 12/13/24 Previous Rx's ?Medication ?Instructions ?Recorded acetaminophen 325 mg tablet 650 mg (2 x 325 mg) PO Q6H PRN 11/16/24 Headache/Pain, Scale 1-10 #0 tabs benzocaine 20 % mucosal gel 1 appl mucous membrane QID PRN 11/16/24 (Anbesol (benzocaine) Maximum dental pain #7 grams Strength) clonazepam 1 mg tablet (Klonopin) 1 mg PO BID #14 tabs 11/16/24 gabapentin 800 mg tablet 800 mg PO TID #21 tabs 11/16/24 gemfibrozil 600 mg tablet 600 mg PO BIDAC #60 tabs 11/16/24 hydroxyzine pamoate 50 mg capsule 50 mg PO TID PRN Anxiety 30 days 11/16/24 #90 caps metformin 500 mg tablet,extended 500 mg PO DAILY@1700 #30 tabs 11/16/24 release 24 hr multivitamin (Daily-Shwetha tablet) 1 tab PO DAILY #30 tabs 11/16/24 nicotine (polacrilex) 4 mg gum 4 mg buccal Q2H PRN nicotine 11/16/24 cravings 30 days #100 ea nicotine 21 mg/24 hr daily 21 mg transdermal DAILY PRN 11/16/24 transdermal patch smoking cessation 28 days #28 ea olanzapine 20 mg tablet 20 mg PO BEDTIME #30 tabs 11/16/24 olanzapine 5 mg tablet 5 mg PO TID PRN agitation 30 days 11/16/24 #30 tabs oxcarbazepine 300 mg tablet 300 mg PO BID #60 tabs 11/16/24 trazodone 50 mg tablet 50 mg PO BEDTIME MRX1 PRN Insomnia 11/16/24 #60 tabs Allergies Allergy/AdvReac Type Severity Reaction Status Date / Time Sulfa (Sulfonamide Allergy Unknown Unknown Verified 12/13/24 18:42 Antibiotics) Review of Systems Constitutional: Constitutional: Denies body ache(s), Denies chills and Denies fever(s) Eyes: Eyes: Denies blurry vision and Denies floaters ENT: Denies vertigo and Denies epistaxis Cardiovascular: Cardiovascular: Denies chest pain and Denies dyspnea Respiratory: Respiratory: Denies cough and Denies dyspnea Gastrointestinal: Gastrointestinal: Denies abdominal pain, Denies nausea and Denies vomiting Musculoskeletal: Musculoskeletal: Denies back pain Integumentary/Breasts: Skin/Breast: Denies rash Neurologic: Denies vertigo Psychiatric: Psychiatric: Reports anxiety, Denies depression, Reports paranoia, Denies homicidal ideation and Denies suicidal ideation [facility] Past Medical History Medical History Schizoaffective disorder Bipolar disorder Polysubstance abuse Social History Social History Household Members: Friend(s) Household Members Other:: Patient currently unable to participate, floridly psychotic Housing: House Housing Other:: Patient currently unable to participate, floridly psychotic Do you presently have visiting nurse or other home services: No Alcohol intake: never Patient Tobacco Use Status: Refuse Tobacco use screen Tobacco use type: Cigarette Cigarette Packs Per Day: 1 Cigarettes Per Day: 20.0 Smoked in Last 30 Days: Yes e-Cigarette/Vaping Use: Currently Using Frequency of e-Cigarette/Vaping Use: weekly Patient Interested in Nicotine Replacement: Yes Patient Given Instructions on How to Stop Smoking: No Second Hand Smoke Exposure: Yes Substance Use Type: Crack/Cocaine and Opiates Currently Displaying Signs/Symptoms of Drug Intoxication Withdrawal: No Have you been hit, kicked, punched, or otherwise hurt by someone within the past year? If so, by whom?: No Do you feel safe in your current relationship?: Yes Is there a partner from a previous relationship who is making you feel unsafe now?: No Are you made to feel afraid or neglected: No Advance Directives: No Advance Directives Information Provided: No Do you have thoughts of harming others: None Do you have a plan to hurt others: No Plan Recently lost weight without trying: No Nutrition Risks: No Nutritional Risk Patient : No : No Poor oral hygiene: No service: No Sexual orientation: Unable to collect Physical Exam ED Vital Signs: Vital Signs - 24 hr 12/14/24 06:05 12/14/24 14:57 Pulse Rate 73 Respiratory Rate 16 Blood Pressure 108/55 L BMI result Body Mass Index 42.2 Const General: healthy appearing, comfortable, no acute distress, alert and awake Nutritional Appearance: well nourished Orientation/consciousness: patient oriented x3 HENMT Head: Yes normocephalic and Yes atraumatic Eyes Eyelids: Yes eyelids normal Conjunctivae: conjunctivae normal Sclerae: sclerae normal Corneas: corneas normal Pupils: Equal, round and reactive pupils present EOM: EOMs intact bilaterally Neck Neck: Yes full ROM Resp Effort & Inspection: normal respiratory effort, able to speak in complete sentences and not labored Skin General skin exam: elasticity normal Neuro General: patient oriented x3 Cranial nerves: Yes Equal, round and reactive pupils present and Yes Bilaterally intact EOM present Cognition (Neuro): normal cognition Extrem Other: Moving all extremities well without any obvious deformities Psych Appearance: grossly normal Speech and movement: Normal speech and movement present Affect: Anxious affect present Attitude: cooperative Thought content: suicidality, no homicidality and Paranoid delusions present Insight: Fair insight present (Psych) Judgement: Fair judgement present (Psych) Course Course Course Narrative: RME performed by Anabela Angel PA-C. Patient is a 34 year old assigned female at presenting to the emergency department with paranoia. Detailed physical exam and review of systems are deferred to the publication distributor. Labs ordered. logistics associate aware. Reevaluation(s) Reevaluation #1: Patient is seen with the care team and will be an inpatient psychiatric bed search Time: 22:53 Medications Administered Generic Name Dose Route Start Last Admin Trade Name Parishq PRN Reason Stop Dose Admin Clonazepam 1 mg 12/14/24 09:00 12/14/24 20:50 Clonazepam 1 Mg Tablet PO 1 mg BID DANE Administration Clonidine HCl 0.1 mg 12/14/24 09:00 12/14/24 20:51 Clonidine Hcl 0.1 Mg Tablet PO 0.1 mg TID DANE Administration Protocol Gabapentin 800 mg 12/14/24 09:00 12/14/24 20:51 Gabapentin 400 Mg Capsule PO 800 mg TID DANE Administration Gemfibrozil 600 mg 12/14/24 07:30 12/14/24 15:35 Gemfibrozil 600 Mg Tablet PO 600 mg BIDAC DANE Administration Hydroxyzine HCl 50 mg 12/13/24 23:25 12/14/24 15:35 Hydroxyzine Hcl 50 Mg Tablet PO 50 mg TID PRN Administration Anxiety Metformin HCl 500 mg 12/14/24 17:00 12/14/24 15:35 Metformin Hcl Er 500 Mg Tab.Er.24h PO 500 mg DAILY@1700 DANE Administration Methadone HCl 90 mg 12/14/24 09:00 12/14/24 08:39 Methadone Hcl 20 Mg/2 Ml Oral.Conc PO 90 mg DAILY DANE Administration Multivitamins/Vitamin C 1 tab 12/14/24 09:00 12/14/24 08:39 Multivitamin Tablet PO 1 tab DAILY DANE Administration Nicotine Polacrilex 4 mg 12/13/24 23:25 12/14/24 20:51 Nicotine Polacrilex 2 Mg Gum BUCCAL 4 mg Q2H PRN Administration nicotine cravings Olanzapine 20 mg 12/13/24 23:30 12/14/24 20:50 Olanzapine 10 Mg Tablet PO 20 mg BEDTIME DANE Administration Oxcarbazepine 300 mg 12/14/24 09:00 12/14/24 20:52 Oxcarbazepine 300 Mg Tablet PO Not Given BID DANE Quetiapine Fumarate 75 mg 12/13/24 23:25 12/14/24 17:03 Quetiapine Fumarate 25 Mg Tablet PO 75 mg BID PRN Administration Anxiety Discontinued Medications Generic Name Dose Route Start Last Admin Trade Name Parishq PRN Reason Stop Dose Admin Nicotine 21 mg 12/13/24 23:25 12/14/24 14:49 Nicotine 21 Mg Patch.Td24 TRANSDERMA 21 mg DAILY PRN Administration smoking cessation Olanzapine 5 mg 12/13/24 23:25 12/14/24 15:35 Olanzapine 5 Mg Tablet PO 5 mg TID PRN Administration agitation Medical Decision Making Medical Decision Making MDM Narrative: 34-year-old female with past medical history as above presents for evaluation of paranoid delusions. She believes she is being followed with an also believes there is a camera in her head that she is requesting the for the show. She is currently calm and cooperative. She has no somatic complaints. Plan for medical clearance and care team consult. Differential Diagnosis Differential Diagnoses: The differential diagnosis associated with the presentation includes Paranoia Paranoid delusions Substance abuse Psychosis Veronica Admission/Observation Consideration of admission/observation: Escalation of care including admission/observation considered Lab Data [facility] Lab Attestation statement: I reviewed the patient's lab results. No leukocytosis or anemia. Normal platelet count. No significant electrolyte abnormalities warranting intervention. 12/13/24 19:16 12/13/24 19:16 Labs: Lab Results 12/13/24 12/13/24 12/13/24 Range/Units 15:07 19:10 19:16 WBC 8.5 (4.8-10.8) X10*3/uL RBC 4.42 (4.20-5.50) X10*6/uL Hgb 12.7 (12.0-16.0) g/dl Hct 37.9 (37.0-47.0) % MCV 85.7 (80.0-98.0) fL MCH 28.7 (27.0-33.0) pg MCHC 33.5 (31.0-35.0) g/dl RDW 14.6 (11.0-16.0) % Plt Count 205 D (160-400) X10*3/uL MPV 10.7 (9.4-12.3) fL Immature Gran % (Auto) 0.2 (0.0-0.4) % Neut % (Auto) 56.5 (45-73) % Lymph % (Auto) 36.3 (20-40) % [place] % (Auto) 4.7 (2-11) % Eos % (Auto) 1.8 (0-4) % Baso % (Auto) 0.5 (0-2) % Lymph # (Auto) 3.1 (1.2-4.9) X10*3/uL [place] # (Auto) 0.4 (0.1-1.2) X10*3/uL Eos # (Auto) 0.2 (0.0-0.4) X10*3/uL Baso # (Auto) 0.0 (0.0-0.2) X10*3/uL Abs Immat Gran (auto) 0.02 (0.00-0.03) X10*3/uL Absolute Neuts (auto) 4.8 (2.0-8.3) x10*3/uL Absolute Nucleated RBC 0.000 (0.0-0.012) X10*3/uL Nucleated RBC % (auto) 0.0 (0.0-0.2) /100WBC Sodium 139 (135-145) mmol/L Potassium 3.8 D (3.3-5.1) mmol/L Chloride 109 H (96-108) mmol/L Carbon Dioxide 24 (22-29) mmol/L Anion Gap 10 L (12-20) BUN 7 L (9-16) mg/dL Creatinine 0.73 (0.5-1.4) mg/dL Estim Creat Clear Calc 68.4 Estimated GFR > 60 Random Glucose 104 (60-115) mg/dL Calcium 9.0 D (8.4-10.2) mg/dL Total Bilirubin 0.2 (0.0-1.0) mg/dL AST 25 (5-31) U/L ALT 25 (0-31) U/L Alkaline Phosphatase 68 (39-117) U/L Total Protein 6.8 (6.5-8.0) g/dL Albumin 4.0 (3.5-5.0) g/dL Urine Color Yellow Urine Appearance Clear Urine pH 6.5 (5.0-9.0) Ur Specific [place] 1.015 (1.005-1.025) Urine Protein Negative (Neg-Trace) mg/dL Urine Glucose (UA) Negative (Negative) mg/dL Urine Ketones Trace (Negative) mg/dL Urine Blood Negative (Negative) Urine Nitrite Negative (Negative) Ur Leukocyte Esterase Negative (Negative) Urine Test NEGATIVE (NEGATIVE) Salicylates < 5.0 L (15-30) mg/dL Urine Opiates Screen Not Detected (Not Detect) Ur Buprenorphine Scrn Not Detected (Not Detect) ng/mL Ur Oxycodone Screen Not Detected (Not Detect) ng/mL Urine Methadone Screen Positive H (Not Detect) ng/mL Urine Fentanyl Screen Not Detected (Not Detect) Acetaminophen < 3 (<30) mcg/mL Ur Barbiturates Screen Not Detected (Not Detect) Ur Phencyclidine Scrn Not Detected (Not Detect) Ur Amphetamines Screen Not Detected (Not Detect) U Benzodiazepines Scrn Not Detected (Not Detect) Urine Cocaine Screen POSITIVE H (Not Detect) U Marijuana (THC) Screen POSITIVE H (Not Detect) Ethyl Alcohol < 10 mg/dL COVID-19 (JUAN F) Negative (Negative) COVID-19 Clin Com See Note Discharge Plan Discharge Clinical Impression: Schizoaffective disorder, depressive type, Polysubstance abuse Patient Disposition: Admitted As Inpatient Interventions: [place]-Suicide Risk Severity Scale Last Done: 12/14/24 16:00 Admission Worksheet (ED) Last Done: 12/14/24 18:45 Discharge Date/Time: 12/14/24 18:46
[2024-12-13 18:39] VITALS: BP 119/52; PULSE 74; RESP 18; TEMP 36.6; O2SAT 98; BMI 42.2
--- NOTE | 2024-12-13 18:40 | ECG_ITS ---
Test Reason : MED CLEARANCE Blood Pressure : */* mmHG Vent. Rate : 58 BPM Atrial Rate : 58 BPM P-R Int : 136 ms QRS Dur : 80 ms QT Int : 406 ms P-R-T Axes : 43 51 26 degrees QTcB Int : 398 ms Sinus bradycardia with sinus arrhythmia Otherwise normal ECG When compared with ECG of 03-Nov-2024 10:26, No significant change was found Referred By: Anabela Angel Electronically Signed By: REJI MCCLURE
[2024-12-13 19:23] LABS: Basophils Percent Auto 0.5 % (0-2); Eosinophils Absolute Auto 0.2 X10*3/uL (0.0-0.4); Eosinophils Percent Auto 1.8 % (0-4); Hematocrit 37.9 % (37.0-47.0); Hemoglobin 12.7 g/dl (12.0-16.0); Imm Gran Abs Auto 0.02 X10*3/uL (0.00-0.03); Imm Gran Pct Auto 0.2 % (0.0-0.4); Lymphocytes Absolute Auto 3.1 X10*3/uL (1.2-4.9); Lymphocytes Percent Auto 36.3 % (20-40); MANUAL DIFF FLAG NO; Mean Corpuscular HGB Conc 33.5 g/dl (31.0-35.0); Mean Corpuscular Hemoglobin 28.7 pg (27.0-33.0); Mean Corpuscular Volume 85.7 fL (80.0-98.0); Mean Platelet Volume 10.7 fL (9.4-12.3); Monocytes Absolute Auto 0.4 X10*3/uL (0.1-1.2); Monocytes Percent Auto 4.7 % (2-11); Neutrophils Absolute Auto 4.8 x10*3/uL (2.0-8.3); Neutrophils Percent Auto 56.5 % (45-73); Platelet Count 205 X10*3/uL (160-400); Red Blood Count 4.42 X10*6/uL (4.20-5.50); Red Cell Distribution Width 14.6 % (11.0-16.0); White Blood Count 8.5 X10*3/uL (4.8-10.8)
[2024-12-13 19:25] LABS: Appearance Urine Clear; Color Urine Yellow; Glucose Urine UA Negative (Negative); Leukocyte Esterase Urine Negative (Negative); Nitrite Urine Negative (Negative); PH 6.5 (5.0-9.0); Specific Gravity - Urine 1.015 (1.005-1.025); Urine Blood Negative (Negative); Urine Ketones Trace mg/dL (Negative); Urine Protein Negative (Neg-Trace)
[2024-12-13 19:29] LABS: UPreg QC Valid YES; Urine Pregnancy NEGATIVE (NEGATIVE)
[2024-12-13 19:36] LABS: Amphetamine Screen Urine Not Detected (Not Detect); Barbiturates, Urine Not Detected (Not Detect); Benzodiazepines Screen Urine Not Detected (Not Detect); Buprenorphine Scr Not Detected (Not Detect); Cannabinoid Screen Urine POSITIVE (Not Detect); Cocaine Screen Urine POSITIVE (Not Detect); Fentanyl, urine Not Detected (Not Detect); Methadone Screen, Urine Positive (Not Detect); Opiate Screen Urine Not Detected (Not Detect); Oxycodone Screen Urine Not Detected (Not Detect); Phencyclidine Screen Urine Not Detected (Not Detect)
[2024-12-13 19:40] LABS: COVID-19 Test Negative (Negative); IDNOW Serial# 6674DD1D
[2024-12-13 19:42] LABS: Acetaminophen LAB < 3 mcg/mL (<30); Alanine Aminotransferase 25 U/L (0-31); Alkaline Phosphatase 68 U/L (39-117); Anion Gap 10 (12-20); Aspartate Amino Transferase 25 U/L (5-31); Bilirubin Total 0.2 mg/dL (0.0-1.0); Blood Urea Nitrogen 7 mg/dL (9-16); Carbon Dioxide 24 mmol/L (22-29); Chloride 109 mmol/L (96-108); Creatinine Clr Calc Pharmacy 68.4; Estimated Glomerular Filt Rate > 60; Ethanol < 10 mg/dL; Glucose Random 104 mg/dL (60-115); Potassium 3.8 mmol/L (3.3-5.1); Salicylate < 5.0 mg/dL (15-30); Sodium 139 mmol/L (135-145); Total Protein 6.8 g/dL (6.5-8.0)
--- NOTE | 2024-12-14 01:05 | PC.NURSE ---
late entry- patient just brought into pod minutes after t/w's arrival to unit, patient had prev today presented to [facility] w paraonoia/delusions and patient prior had not been taking medications for about 2 weeks. mackenziet periodically expresses agitation about being presented with an unsolkicited sandwich, later requesting crackers. t/w had pursued medications for client but med rec wasnt completed until much after patient had fallen asleep. awaiting any breaks in sleep for an opportunity to initiate medications for client, appears in no distress.
[2024-12-14 06:05] VITALS: RESP 16
[2024-12-14] MEDS: Nicotine Polacrilex 2 MG GUM 4 MG BUCCAL ×4 (06:40→20:51)
--- NOTE | 2024-12-14 06:42 | HE.PHANOTE ---
RE: METHADONE DOSING Last dose of methadone 90 mg was given on 12/12/24 @0749 at [facility] and one take home dose for 12/13/24 pt administered per Raeann Salazar RN per Nicole Holliday RN.
[2024-12-14] MEDS: QUEtiapine Fumarate 25 MG TABLET 75 MG PO ×2 (06:47→17:03)
--- NOTE | 2024-12-14 07:59 | PC.NURSE ---
Assumed care of patient at 0645, patient appears to be in no apparent distress this am, calm and cooperative, laying on couch in BH 7. Continue plan of care for IPLOC
[2024-12-14] MEDS: methADONE HCl 20 MG/2 ML ORAL.CONC 90 MG PO (08:39)
[2024-12-14] MEDS: clonazePAM 1 MG TABLET PO ×2 (08:39→20:50)
[2024-12-14] MEDS: Gabapentin 400 MG CAPSULE 800 MG PO ×3 (08:39→20:51)
[2024-12-14] MEDS: OXcarbazepine 300 MG TABLET PO (08:39)
[2024-12-14] MEDS: cloNIDine HCL 0.1 MG TABLET PO ×3 (08:39→20:51)
[2024-12-14] MEDS: Multivitamin TABLET 1 TAB PO (08:39)
[2024-12-14] MEDS: Nicotine 21 MG PATCH.TD24 TRANSDERMA (14:49)
[2024-12-14 14:57] VITALS: BP 108/55; PULSE 73
[2024-12-14] MEDS: OLANZapine 5 MG TABLET PO (15:35)
[2024-12-14] MEDS: gemfibroziL 600 MG TABLET PO (15:35)
[2024-12-14] MEDS: hydrOXYzine HCL 50 MG TABLET PO (15:35)
[2024-12-14] MEDS: metFORMIN HCl ER 500 MG TAB.ER.24H PO (15:35)
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
[2024-12-14 20:16] VITALS: BP 108/55; PULSE 93; RESP 18; TEMP 36.1; O2SAT 97
--- NOTE | 2024-12-14 20:30 | PC.ADMIT ---
Eleonora was admitted to from [facility] in [facility]. ON admission she appeared extremely anxious. She was hyperverbal and hyperactive, complaining of hunger and thirst. She was given food and fluid. She was delusional speaking about her family and friends are blasting the movie footage in my head all over [place]. She reportedly has been non compliant with medications since her previous discharge from this unit. She stated she believes that her sister picked them up. Therefore the meds were not available for this patient to use. She had a relapse on crack cocaine which she blames on not having her prescribed medications.
[2024-12-14 20:48] VITALS: BP 111/57; PULSE 62; TEMP 36.6; O2SAT 98
[2024-12-14] MEDS: OLANZapine 10 MG TABLET 20 MG PO (20:50)
[2024-12-15] MEDS: methADONE HCl 20 MG/2 ML ORAL.CONC 90 MG PO (08:09)
[2024-12-15 08:30] VITALS: BP 105/64; PULSE 58; RESP 18; TEMP 36.9; O2SAT 97
[2024-12-15] MEDS: OXcarbazepine 300 MG TABLET PO ×2 (08:33→20:13)
[2024-12-15] MEDS: clonazePAM 1 MG TABLET PO (08:33)
[2024-12-15] MEDS: Gabapentin 400 MG CAPSULE 800 MG PO (08:33)
[2024-12-15] MEDS: cloNIDine HCL 0.1 MG TABLET PO ×2 (08:33→20:13)
[2024-12-15] MEDS: Nicotine 21 MG PATCH.TD24 TRANSDERMA (08:51)
[2024-12-15] MEDS: Nicotine Polacrilex 2 MG GUM 4 MG BUCCAL ×4 (08:51→22:32)
[2024-12-15 09:35] LABS: Estimated Average Glucose 97 mg/dL; Total Hemoglobin (HGBA1C) 3355.9784 umol/L
[2024-12-15 09:46] LABS: Alanine Aminotransferase 24 U/L (0-31); Albumin Level 3.8 g/dL (3.5-5.0); Alkaline Phosphatase 64 U/L (39-117); Anion Gap 9 (12-20); Aspartate Amino Transferase 26 U/L (5-31); Bilirubin Total 0.1 mg/dL (0.0-1.0); Blood Urea Nitrogen 9 mg/dL (9-16); Calcium 9.2 mg/dL (8.4-10.2); Carbon Dioxide 28 mmol/L (22-29); Chloride 110 mmol/L (96-108); Cholesterol 113 mg/dL (<200); Creatinine Clr Calc Pharmacy 53.7; Estimated Glomerular Filt Rate > 60; Glucose Random 108 mg/dL (60-115); HDL Cholesterol 32 mg/dL (>40); LDL Cholesterol Calculated 61 mg/dL (<100); Potassium 3.6 mmol/L (3.3-5.1); Sodium 143 mmol/L (135-145); Total Protein 6.4 g/dL (6.5-8.0); Triglycerides 104 mg/dL (<150)
[2024-12-15 10:01] LABS: TSH reflex Free T4 1.65 uIU/mL (0.32-4.0)
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
[2024-12-15 19:49] VITALS: BP 123/84; PULSE 58; RESP 16; TEMP 36.7; O2SAT 99
[2024-12-15] MEDS: QUEtiapine Fumarate 25 MG TABLET 75 MG PO (20:13)
[2024-12-15] MEDS: OLANZapine 10 MG TABLET 20 MG PO (20:13)
[2024-12-15] MEDS: clonazePAM 0.5 MG TABLET PO (20:13)
[2024-12-15] MEDS: Gabapentin 300 MG CAPSULE PO (20:13)
[2024-12-16] MEDS: methADONE HCl 20 MG/2 ML ORAL.CONC 90 MG PO (07:50)
[2024-12-16 08:00] VITALS: BP 108/59; PULSE 75; RESP 16; TEMP 36.9; O2SAT 98
[2024-12-16] MEDS: Gabapentin 300 MG CAPSULE PO ×3 (08:31→21:08)
[2024-12-16] MEDS: cloNIDine HCL 0.1 MG TABLET PO ×3 (08:31→21:08)
[2024-12-16] MEDS: clonazePAM 0.5 MG TABLET PO ×2 (08:31→21:08)
[2024-12-16] MEDS: OXcarbazepine 300 MG TABLET PO ×2 (08:31→21:08)
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
[2024-12-16 14:59] VITALS: BP 111/60
[2024-12-16] MEDS: Nicotine Polacrilex 2 MG GUM 4 MG BUCCAL (14:59)
[2024-12-16 20:00] VITALS: BP 119/57; PULSE 79; RESP 16; TEMP 36.2; O2SAT 95
[2024-12-16] MEDS: OLANZapine 10 MG TABLET 20 MG PO (21:08)
[2024-12-16] MEDS: QUEtiapine Fumarate 25 MG TABLET 75 MG PO (21:09)
[2024-12-17 07:00] VITALS: BMI 28.6
[2024-12-17] MEDS: methADONE HCl 20 MG/2 ML ORAL.CONC 90 MG PO (07:58)
[2024-12-17 08:00] VITALS: BP 129/61; PULSE 77; RESP 16; TEMP 37; O2SAT 99
[2024-12-17] MEDS: Gabapentin 300 MG CAPSULE PO ×3 (08:45→19:59)
[2024-12-17] MEDS: clonazePAM 0.5 MG TABLET PO ×2 (08:45→20:00)
[2024-12-17] MEDS: cloNIDine HCL 0.1 MG TABLET PO ×3 (08:45→19:59)
[2024-12-17] MEDS: Nicotine 21 MG PATCH.TD24 TRANSDERMA (08:45)
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
[2024-12-17] MEDS: Nicotine Polacrilex 2 MG GUM 4 MG BUCCAL ×4 (12:44→20:00)
[2024-12-17 14:32] VITALS: BP 126/78
[2024-12-17] MEDS: QUEtiapine Fumarate 25 MG TABLET 75 MG PO (17:47)
[2024-12-17] MEDS: hydrOXYzine HCL 50 MG TABLET PO (19:59)
[2024-12-17] MEDS: OLANZapine 10 MG TABLET 20 MG PO (19:59)
[2024-12-17 20:00] VITALS: BP 131/60; PULSE 83; RESP 18; TEMP 37.7; O2SAT 96
[2024-12-17] MEDS: OXcarbazepine 300 MG TABLET PO (20:00)
[2024-12-18 08:00] VITALS: BP 96/51; PULSE 65; RESP 16; TEMP 36.4; O2SAT 99
[2024-12-18] MEDS: methADONE HCl 20 MG/2 ML ORAL.CONC 90 MG PO (08:02)
[2024-12-18] MEDS: Nicotine Polacrilex 2 MG GUM 4 MG BUCCAL ×4 (08:04→18:05)
[2024-12-18] MEDS: Gabapentin 300 MG CAPSULE 600 MG PO ×3 (08:56→20:16)
[2024-12-18] MEDS: Multivitamin TABLET 1 TAB PO (08:57)
[2024-12-18] MEDS: clonazePAM 1 MG TABLET PO ×2 (08:57→20:15)
[2024-12-18 08:59] VITALS: BP 104/64
[2024-12-18] MEDS: cloNIDine HCL 0.1 MG TABLET PO ×3 (08:59→20:17)
[2024-12-18] MEDS: Nicotine 21 MG PATCH.TD24 TRANSDERMA (09:00)
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
[2024-12-18] MEDS: QUEtiapine Fumarate 25 MG TABLET 75 MG PO (13:25)
[2024-12-18 16:09] VITALS: BP 128/74
[2024-12-18] MEDS: hydrOXYzine HCL 50 MG TABLET PO (16:09)
[2024-12-18 20:00] VITALS: BP 132/72; PULSE 80; TEMP 37.4; O2SAT 98
[2024-12-18 20:17] VITALS: BP 134/72
[2024-12-18] MEDS: OLANZapine 10 MG TABLET 30 MG PO (20:17)
[2024-12-19] MEDS: Nicotine Polacrilex 2 MG GUM 4 MG BUCCAL ×5 (07:45→20:01)
[2024-12-19] MEDS: methADONE HCl 20 MG/2 ML ORAL.CONC 90 MG PO (07:45)
[2024-12-19 09:08] VITALS: BP 126/58; PULSE 71; RESP 16; TEMP 36.8; O2SAT 99
[2024-12-19] MEDS: Gabapentin 300 MG CAPSULE 600 MG PO ×3 (09:09→20:02)
[2024-12-19] MEDS: cloNIDine HCL 0.1 MG TABLET PO ×3 (09:09→20:03)
[2024-12-19] MEDS: Multivitamin TABLET 1 TAB PO (09:09)
[2024-12-19] MEDS: clonazePAM 1 MG TABLET PO ×2 (09:10→20:03)
[2024-12-19] MEDS: Nicotine 21 MG PATCH.TD24 TRANSDERMA (09:13)
[2024-12-19 14:28] VITALS: BP 113/56; PULSE 76; RESP 16; O2SAT 98
[2024-12-19] MEDS: QUEtiapine Fumarate 25 MG TABLET 75 MG PO (19:49)
[2024-12-19 19:58] VITALS: BP 121/73; PULSE 83; RESP 15; TEMP 37; O2SAT 98
[2024-12-19] MEDS: OLANZapine 10 MG TABLET 30 MG PO (20:03)
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
[2024-12-19] MEDS: Gabapentin 100 MG CAPSULE 200 MG PO (21:13)
[2024-12-20] MEDS: methADONE HCl 20 MG/2 ML ORAL.CONC 90 MG PO (07:39)
[2024-12-20] MEDS: Nicotine Polacrilex 2 MG GUM 4 MG BUCCAL ×5 (07:41→20:07)
[2024-12-20 08:09] LABS: Creatinine Clr Calc Pharmacy 102.5; Estimated Glomerular Filt Rate > 60
[2024-12-20 08:50] VITALS: BP 103/56
[2024-12-20] MEDS: cloNIDine HCL 0.1 MG TABLET PO ×3 (08:50→20:05)
[2024-12-20] MEDS: clonazePAM 1 MG TABLET PO ×2 (08:51→20:06)
[2024-12-20] MEDS: Gabapentin 400 MG CAPSULE 800 MG PO ×3 (08:51→20:05)
[2024-12-20] MEDS: Multivitamin TABLET 1 TAB PO (08:51)
[2024-12-20] MEDS: Nicotine 21 MG PATCH.TD24 TRANSDERMA (09:08)
[2024-12-20 09:14] VITALS: BP 103/56; PULSE 55; TEMP 36.6; O2SAT 98
[2024-12-20] MEDS: QUEtiapine Fumarate 25 MG TABLET 75 MG PO (12:57)
[2024-12-20 15:04] VITALS: BP 128/60
[2024-12-20 20:00] VITALS: BP 109/59; PULSE 90; RESP 15; TEMP 36.6; O2SAT 97
[2024-12-20] MEDS: OLANZapine 10 MG TABLET 30 MG PO (20:06)
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
[2024-12-21] MEDS: Nicotine Polacrilex 2 MG GUM 4 MG BUCCAL ×5 (07:32→20:15)
[2024-12-21] MEDS: methADONE HCl 20 MG/2 ML ORAL.CONC 90 MG PO (07:51)
[2024-12-21 08:00] VITALS: BP 139/57; PULSE 78; TEMP 36.2; O2SAT 97
[2024-12-21] MEDS: Multivitamin TABLET 1 TAB PO (08:16)
[2024-12-21] MEDS: Gabapentin 400 MG CAPSULE 800 MG PO ×3 (08:16→20:14)
[2024-12-21 08:17] VITALS: BP 139/57
[2024-12-21] MEDS: clonazePAM 1 MG TABLET PO ×2 (08:17→20:15)
[2024-12-21] MEDS: cloNIDine HCL 0.1 MG TABLET PO ×2 (08:17→20:15)
[2024-12-21] MEDS: Nicotine 21 MG PATCH.TD24 TRANSDERMA (08:18)
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
[2024-12-21] MEDS: QUEtiapine Fumarate 25 MG TABLET 75 MG PO (19:06)
[2024-12-21 20:00] VITALS: BP 109/55; PULSE 96; RESP 16; TEMP 36.7; O2SAT 98
[2024-12-21] MEDS: OLANZapine 10 MG TABLET 30 MG PO (20:15)
[2024-12-21] MEDS: hydrOXYzine HCL 50 MG TABLET PO (20:15)
[2024-12-22] MEDS: Nicotine Polacrilex 2 MG GUM 4 MG BUCCAL ×2 (05:25→07:49)
[2024-12-22] MEDS: methADONE HCl 20 MG/2 ML ORAL.CONC 90 MG PO (07:47)
[2024-12-22 08:00] VITALS: BP 163/69; PULSE 80; RESP 18; TEMP 36.4; O2SAT 97
[2024-12-22 08:42] VITALS: BP 169/63
[2024-12-22] MEDS: clonazePAM 1 MG TABLET PO (08:42)
[2024-12-22] MEDS: cloNIDine HCL 0.1 MG TABLET PO (08:42)
[2024-12-22] MEDS: Gabapentin 400 MG CAPSULE 800 MG PO (08:42)
[2024-12-22] MEDS: Multivitamin TABLET 1 TAB PO (08:43)
[2024-12-22] MEDS: Nicotine 21 MG PATCH.TD24 TRANSDERMA (09:04)
--- NOTE | 2024-12-22 09:53 | P.DS_ITS ---
DS: Providers Provider Date of admission: 12/14/24 15:36 Primary care physician: None Physician DS: Diagnosis Discharge Diagnosis (1) Schizoaffective disorder, depressive type: Status: Acute (2) Cocaine abuse: Status: Acute (3) Opiate abuse, episodic: Status: Acute DS: Medications Discharge Medications Home Medications: Home Medications ?Medication ?Instructions ?Recorded ?Confirmed methadone 10 mg/mL oral concentrate 90 mg PO DAILY 10/31/24 12/14/24 Previous Rx's ?Medication ?Instructions ?Recorded clonazepam 1 mg tablet (Klonopin) 1 mg PO BID #14 tabs 12/22/24 clonidine HCl 0.1 mg tablet 0.1 mg PO TID #90 tabs 12/22/24 gabapentin 800 mg tablet 800 mg PO TID #21 tabs 12/22/24 hydroxyzine HCl 50 mg tablet 50 mg PO TID PRN mild Anxiety #45 12/22/24 tabs multivitamin (Daily-Shwetha tablet) 1 tab PO DAILY #30 tabs 12/22/24 nicotine (polacrilex) 2 mg gum 4 mg buccal Q2H PRN nicotine 12/22/24 cravings #100 ea nicotine 21 mg/24 hr daily 21 mg transdermal DAILY PRN 12/22/24 transdermal patch smoking cessation 28 days #28 ea quetiapine 25 mg tablet 75 mg (3 x 25 mg) PO BID PRN 12/22/24 Anxiety #42 tabs trazodone 50 mg tablet 50 mg PO BEDTIME MRX1 PRN Insomnia 12/22/24 #60 tabs Data Data Completed and Pending Completed studies during hospitalization [Text1]: 12/15/24 12/20/24 09:05 07:36 Creatinine 0.70 Estim Creat Clear Calc 102.5 Estimated GFR > 60 TSH 1.65 DS: Summary Time Spent with Patient Time attestation: Total time managing care of this patient today ____ minutes. Discharge Plan Discharge Anticipated Discharge Date/Time: 12/22/24 12:00 Patient Disposition: Xfer Other Discharge Diagnosis: Schizoaffective Disorder, Depressed Polysubstance Use Disorder, opiates, cocaine Referrals: Therapy Intake: R[facility] ([facility]) [Other] - 12/24/24 11:00 am (Appointment is in person at the office Please bring your health insurance card, if you have it, to your appointment ) Psych Prescriber: Jess Orozco ([facility]) [Other] - 01/13/25 10:40 am (Telehealth- You will receive a text just before your appointment time to join virtually; if no text or not working, Jess will call you at the appointment time) Psych Prescriber: Jess Orozco ([facility]) [Other] - 02/01/25 9:20 am (Telehealth- You will receive a text just before your appointment time to join virtually; if no text or not working, Jess will call you at the appointment time) Discharge Medications: New multivitamin [Daily-Shwetha] Tablet 1 tab PO DAILY Qty: 30 0RF quetiapine 25 mg Tablet 75 mg PO BID PRN (Reason: Anxiety) Qty: 42 4RF trazodone 50 mg Tablet 50 mg PO BEDTIME MRX1 PRN (Reason: Insomnia) Qty: 60 0RF nicotine (polacrilex) 2 mg Gum 4 mg buccal Q2H PRN (Reason: nicotine cravings) Qty: 100 0RF hydroxyzine HCl 50 mg Tablet 50 mg PO TID PRN (Reason: mild Anxiety) Qty: 45 1RF Continued methadone 10 mg/mL Concentrate 90 mg PO DAILY clonidine HCl 0.1 mg tablet 0.1 mg PO TID Qty: 90 0RF clonazepam [Klonopin] 1 mg tablet 1 mg PO BID Qty: 14 4RF gabapentin 800 mg tablet 800 mg PO TID Qty: 21 4RF nicotine 21 mg/24 hr Patch 24 Hour 21 mg transdermal DAILY PRN (Reason: smoking cessation) 28 Days Qty: 28 0RF Discontinued acetaminophen 325 mg Tablet 650 mg PO Q6H PRN (Reason: Headache/Pain, Scale 1-10) Qty: 0 0RF trazodone 50 mg Tablet 50 mg PO BEDTIME MRX1 PRN (Reason: Insomnia) Qty: 60 0RF oxcarbazepine 300 mg Tablet 300 mg PO BID Qty: 60 0RF gemfibrozil 600 mg Tablet 600 mg PO BIDAC Qty: 60 0RF Anbesol (benzocaine) Max Str 20 % Gel 1 appl mucous membrane QID PRN (Reason: dental pain) Qty: 7 0RF Protocol: Apply to: Apply to: teeth multivitamin [Daily-Shwetha] Tablet 1 tab PO DAILY Qty: 30 0RF metformin 500 mg Tablet Extended Release 24 Hr 500 mg PO DAILY@1700 Qty: 30 0RF olanzapine 5 mg Tablet 5 mg PO TID PRN (Reason: agitation) 30 Days Qty: 30 0RF hydroxyzine pamoate 50 mg Capsule 50 mg PO TID PRN (Reason: Anxiety) 30 Days Qty: 90 0RF nicotine (polacrilex) 4 mg gum 4 mg buccal Q2H PRN (Reason: nicotine cravings) 30 Days Qty: 100 0RF olanzapine 20 mg tablet 20 mg PO BEDTIME Qty: 30 0RF quetiapine 25 mg tablet 75 mg PO BID PRN (Reason: Anxiety) Discharge Orders: Discharge Order (Routine); Ordered 12/22/24 Ordered By: Janett Melton Diet: Advance to usual diet Activity on Discharge: As tolerated Stand Alone Forms: Patient Portal Discharge page Print Language: Unable To Collect Care Plan Goals: Mood and Behavioral Stabilization Abstinence from Substances Health Concerns: Mood and Behavioral Stabilization Abstinence from Substances Plan of Treatment: Attend scheduled appointments Take medications as directed Assessment: Denies SI,HI,AH,VH Discharges on a three day notice of intent.
== END 2024-12-22 11:40 | disposition other institution (70) | DRG 750 ==
LOC: HO.ED 20:00 → HO.PM5 12-14 15:44
PROVIDERS: Physician Assistant; Physician Assistant Medical; Admitting Provider Psychiatry & Neurology Psychiatry; Emergency Provider Emergency Medicine; Visit Provider Clinical Nurse Specialist Psychiatric/Mental Health, Adult
DX: F25.1 Schizoaffective disorder, depressive type (principal); F11.20 Opioid dependence, uncomplicated; F19.10 Other psychoactive substance abuse, uncomplicated; F43.10 Post-traumatic stress disorder, unspecified; Z20.822 Contact with and (suspected) exposure to COVID-19; Z79.899 Other long term (current) drug therapy
CPT/HCPCS: 36415; 80053; 80061; 80143; 80179; 80307; 81003; 81025; 82565; 83036; 84443; 85025; 87635; 93005; 99285; S9485

== ENCOUNTER → 2024-12-13 18:40 | Outpatient (BNV) | payer MEDICAID, SELFPAY | PROVIDERS: Emergency Provider Emergency Medicine; Visit Provider Internal Medicine | DX: I49.9 Cardiac arrhythmia, unspecified (principal); R00.1 Bradycardia, unspecified | CPT/HCPCS: 93010 ==

== ENCOUNTER → 2024-12-14 15:36 | Outpatient (BNV) | payer OTHER, SELFPAY | PROVIDERS: Admitting Provider Psychiatry & Neurology Psychiatry; Emergency Provider Emergency Medicine; Visit Provider Psychiatry & Neurology Psychiatry | DX: F25.1 Schizoaffective disorder, depressive type (principal); F14.10 Cocaine abuse, uncomplicated; F11.10 Opioid abuse, uncomplicated | CPT/HCPCS: 99232 ==

== ENCOUNTER → 2024-12-14 15:36 | Outpatient (BNV) | payer OTHER, SELFPAY | PROVIDERS: Admitting Provider Psychiatry & Neurology Psychiatry; Emergency Provider Emergency Medicine; Visit Provider Psychiatry & Neurology Psychiatry | DX: F25.1 Schizoaffective disorder, depressive type (principal); F14.10 Cocaine abuse, uncomplicated; F11.10 Opioid abuse, uncomplicated | CPT/HCPCS: 99231; 99232 ==

== ENCOUNTER 2025-01-13 15:59 | Inpatient (IN) | payer OTHER, SELFPAY ==
--- OUTSIDE RECORDS SUMMARY | 2025-01-13 16:08 | XMS_ITS | Clinical Summary ---
Author Organization [facility] Address [address] [place] [address] Phone Care Team Providers Care Information Management Officer Name Role Phone Physician, No Pcp Primary Care Provider Unavaila ble Allergies Active Allergy Reactions Criticality Noted Date Comments Sulfa (Sulfonamide Antibiotics) 06/15 Medications cloNIDine (CATAPRES) 0.1 mg tablet Take 1 tablet (0.1 mg total) by mouth 2 (two) times a day if needed (anxiety). 5 Active gabapentin (NEURONTIN) 600 mg tablet Take 1 tablet (600 mg total) by mouth 3 (three) times a day. 5 Active hydrOXYzine pamoate (VISTARIL) 50 mg capsule Take 1 capsule (50 mg total) by mouth 3 (three) times a day if needed for anxiety. 5 Active QUEtiapine (SEROquel) 50 mg tablet Take 1 tablet (50 mg total) by mouth 2 (two) times a day if needed (agitation). 5 Active methadone (DOLOPHINE) 10 mg/5 mL solution Take 45 mL (90 mg total) by mouth 1 (one) time each day. 3 Active neomycin-polymy dahiana-dexamethaso ne (MAXITROL) 3.5mg/mL-10,000 unit/mL-0.1 % ophthalmic suspension 1 drop every 6 (six) hours. Seek further care if there is no improvement after 2 days Active clonazePAM (KlonoPIN) 0.5 mg tablet Take 1 tablet (0.5 mg total) by mouth 2 (two) times a day. Max Daily Amount: 1 mg Active Active Problems No known active problems Encounters Date Type Department Care Team Description 01/13/2025 7:44 AM EDT - 01/13/2025 3:41 PM EDT Emergency [facility] Emergency [address] [place] [phone] Suicidal ideation (Primary Dx) Discharge Disposition: Another Health Care Institution Not Defined 01/08/2025 6:26 PM EDT - 01/09/2025 9:31 AM EDT [facility] Emergency [address] [place] [phone] Delusions ([facility] V24, [facility] V28) (Primary Dx); Paranoia ([facility] V24, [facility] V28) Discharge Disposition: Home or Self Care 12/13/2024 2:38 PM EDT - 12/13/2024 4:36 PM EDT [facility] Emergency [address] [place] [phone] Jovanna Sotelo, Delusions ([facility] V24, [facility] V28) (Primary Dx) Discharge Disposition: Left Against Medical Advice 11/29/2024 12:51 PM EDT - 11/29/2024 1:56 PM EDT [facility] Emergency [address] [place] [phone] Melvin Banda MD Delusion ([facility] V24, [facility] V28) (Primary Dx) Discharge Disposition: Home or Self Care from Last 3 Months Medical History Medical History Date Comments Bipolar 1 disorder ([facility] V24, [facility] V28) Social History Tobacco Use Types Packs/Day Years Used Date Smoking Tobacco: Every Day Cigarettes Smokeless Tobacco: Never Tobacco Cessation:Ready to Q uit: Not Asked; Counseling Given: Not Answered Comments No Sex and Gender Information Value Date Recorded Sex Assigned at Not on file Legal Sex Female 1:22 PM EST Gender Identity Not on file Sexual Orientation Not on file Obstetrics History Last Filed Vital Signs Vital Sign Reading Time Taken Comments Blood Pressure 122/70 01/13/2025 7:35 AM EDT Pulse 84 01/13/2025 7:35 AM EDT Temperature 36.7 C (98.1 F) 01/13/2025 7:35 AM EDT Respiratory Rate 18 01/13/2025 7:35 AM EDT Oxygen Saturation 100% 01/13/2025 7:35 AM EDT Inhaled Oxygen Concentration - - Weight 72.6 kg (160 lb) 01/13/2025 7:35 AM EDT Height 157.5 cm (5' 2 ) 01/13/2025 7:35 AM EDT Body Mass Index 29.26 01/13/2025 7:35 AM EDT Plan of Treatment Health Maintenance Due Date Last Done Comments DTaP,Tdap,and Td Vaccines (1 - Tdap) 2007 Hepatitis A Vaccines (1 of 2 - Risk 2-dose series) 2007 Hepatitis B Vaccines (1 of 3 - 19+ 3-dose series) 2007 Pneumococcal Vaccine: Pediatrics (0 to 5 Years) and At-Risk Patients (6 to 64 Years) (1 of 2 - PCV) 2007 Cervical Cancer Screening: P ap Smear 2009 Cholesterol Screening (Lipid Panel) 06/12/2022 Depression Screening 06/12/2022 Social Influencers of Health Screening 06/12/2022 COVID-19 Vaccine (3 - 2023-2 5 season) 2024 06/22/2022, 05/23/2022 Influenza Vaccine (#1) 2025 3, 05/23/2022 HIV Screening Completed 08/10/2024 Hepatitis C Screening Completed 08/10/2024 HIB Vaccines Aged Out No longer eligi ble based on patient's age to complete this topic HPV Vaccines Aged Out No longer eligi ble based on patient's age to complete this topic IPV Vaccines Aged Out No longer eligi ble based on patient's age to complete this topic MMR Vaccines Aged Out No longer eligi ble based on patient's age to complete this topic Meningococcal ACWY Vaccine Aged Out N o longer eligible based on patient's age to complete this topic Meningococcal B Vaccine Aged Out No l onger eligible based on patient's age to complete this topic RSV Immunization Patients Under 20 months Aged Out No longer eligible b ased on patient's age to complete this topic Varicella Vaccines Aged Out No longer eligible based on patient's age to complete this topic Procedures Procedure Name Priority Date/Time Associated Diagnosis Comments POC , URINE DIAGNOSTIC STAT 01/13/2025 10:10 AM EDT METHADONE SCREEN, URINE STAT 01/14/20 10:06 AM EDT PHENCYCLIDINE, URINE STAT 01/13/2025 10:06 AM EDT BUPRENORPHINE SCREEN, URINE STAT 01/13/2025 10:06 AM EDT DRUG ABUSE SCREEN 8A PANEL, URINE STAT 01/13/2025 10:06 AM EDT CBC WITH AUTO DIFFERENTIAL STAT 01/13/2025 8:11 AM EDT SALICYLATE LEVEL STAT 01/13/2025 8:11 AM EDT ACETAMINOPHEN LEVEL STAT 01/13/2025 8 :11 AM EDT ETHANOL STAT 01/13/2025 8:11 AM EDT COMPREHENSIVE METABOLIC PANEL STAT 01/13/2025 8:11 AM EDT CBC AND DIFFERENTIAL STAT 01/13/2025 8:11 AM EDT ECG 12-LEAD STAT 01/13/2025 8:06 AM EDT CBC WITH AUTO DIFFERENTIAL STAT 01/08/2025 7:14 PM EDT SALICYLATE LEVEL STAT 01/08/2025 7:14 PM EDT ACETAMINOPHEN LEVEL STAT 01/08/2025 7 :14 PM EDT ETHANOL STAT 01/08/2025 7:14 PM EDT COMPREHENSIVE METABOLIC PANEL STAT 01/08/2025 7:14 PM EDT CBC AND DIFFERENTIAL STAT 01/08/2025 7:14 PM EDT POC , URINE DIAGNOSTIC STAT 01/08/2025 6:46 PM EDT METHADONE SCREEN, URINE STAT 01/09/20 6:42 PM EDT PHENCYCLIDINE, URINE STAT 01/08/2025 6:42 PM EDT BUPRENORPHINE SCREEN, URINE STAT 01/08/2025 6:42 PM EDT DRUG ABUSE SCREEN 8A PANEL, URINE STAT 01/08/2025 6:42 PM EDT ECG ANNOTATED 12/15/2024 ECG 12-LEAD STAT 12/13/2024 3:08 PM EDT CBC WITH AUTO DIFFERENTIAL STAT 12/13/2024 2:58 PM EDT SALICYLATE LEVEL STAT 12/13/2024 2:58 PM EDT ACETAMINOPHEN LEVEL STAT 12/13/2024 2 :58 PM EDT ETHANOL STAT 12/13/2024 2:58 PM EDT COMPREHENSIVE METABOLIC PANEL STAT 12/13/2024 2:58 PM EDT CBC AND DIFFERENTIAL STAT 12/13/2024 2:58 PM EDT METHADONE SCREEN, URINE STAT 12/14/19 2:41 PM EDT PHENCYCLIDINE, URINE STAT 12/13/2024 2:41 PM EDT BUPRENORPHINE SCREEN, URINE STAT 12/13/2024 2:41 PM EDT DRUG ABUSE SCREEN 8A PANEL, URINE STAT 12/13/2024 2:41 PM EDT HEPATITIS C ANTIBODY Routine 08/10/2024 7:15 AM EST Opioid dependence, uncomplicated (CMS/HCC) HIV 1, 2 ANTIBODY, P24 ANTIGEN WITH REFLEX TO DIFFERENTIATION Routine 08/10/2024 7:15 AM EST Opioid dependence, uncomplicated ([facility]) from Last 3 Months or Most Recently Relevant to Health Maintenance Results * POC , urine manually resulted (01/13/2025 10:10 AM EDT) Only the most recent of2 resultswithin the time period is included. HCG, Ur POC Negative Negative POC hCG Int QC Pass? Yes Yes Urine Urine specimen obtained by clean catch procedure / Unknown 01/13/2025 10:10 AM EDT Eligio BLANC POINT OF CARE TEST ENTER/ EDIT ORDERABLES Final Result * (ABNORMAL) Drug abuse screen 8a panel, urine (01/13/2025 10:06 AM EDT) Only the most recent of3 resultswithin the time period is included. Pathologist [facility] Amphetamine Screen, Ur Negative Negative LAB CHEMISTRY METHOD 5 11:[address] [facility] Comment:Certain OTC medicati ons containing ephedrine, phenylephrine, pseudoephedrine and phenylpropanolamine can cause false positive results. Barbiturate Screen, Ur Negative Negative LAB CHEMISTRY METHOD 5 11:[address] [facility] Benzodiazepine Screen, Ur Negative Negative LAB CHEMISTRY METHOD 5 11:[address] [facility] Cocaine Screen, Ur Positive(A ) Negative LAB CHEMISTRY METHOD 5 11:[address] [facility] Opiate Screen, Ur Negative Negative LAB CHEMISTRY METHOD 5 11:[address] [facility] Cannabinoid (THC) Screen, Ur Positive(A ) Negative LAB CHEMISTRY METHOD 5 11:[address] [facility] Comment:Specimens from patie nts taking pantoprazole sodium (Protonix) have been shown to produce false positive results. Oxycodone Screen, Ur Negative Negative LAB CHEMISTRY METHOD 11:[address] [facility] Fentanyl, Ur Positive(A ) Negative LAB CHEMISTRY METHOD 11:[address] [facility] Urine Urine specimen obtained by clean catch procedure / Unknown Non-blood Collection / Unknown 01/13/2025 10:06 AM EDT 01/13/2025 10:38 AM EDT [facility] - 01/13/2025 11:34 AM EDT Assay cutoffs: Amphetamines 1000 ng/mL Barbiturates 200 ng/mL Benzodiazepines 200 ng/mL Cocaine 300 ng/mL Fentanyl 1 ng/mL Opiates 300 ng/mL Oxycodone 100 ng/mL THC 50 ng/mL Semi-quantitative assay for screening purposes only. Unconfirmed screening result should not be used for non-medical purposes. *ALTERNATE METHOD CONFIRMATION DONE UPON REQUEST ONLY* us Cody Nava MD LAB URINE ORDERABLES Final Resu lt [facility] [address] [place] [address], [place] [phone] * Buprenorphine screen, urine (01/13/2025 10:06 AM EDT) Only the most recent of3 resultswithin the time period is included. Buprenorphine Screen Urine Negative Negative LAB CHEMISTRY METHOD 01/13/2025 11:[address] [facility] Urine Urine specimen obtained by clean catch procedure / Unknown Non-blood Collection / Unknown 01/13/2025 10:06 AM EDT 01/13/2025 10:38 AM EDT [facility] - 01/13/2025 11:21 AM EDT Assay cutoff 5 ng/mL Semi-quantitative assay for screening purposes only. Unconfirmed screening result should not be used for non-medical purposes. *ALTERNATE METHOD CONFIRMATION DONE UPON REQUEST ONLY* us Cody Nava MD LAB URINE ORDERABLES Final Resu lt Performing Organization Address [facility] de Phone Number [facility] [address] [place] [address], [place] [phone] * (ABNORMAL) Methadone, urine (01/13/2025 10:06 AM EDT) Only the most recent of3 resultswithin the time period is included. Methadone Screen, Urine Positive (A) Negative LAB CHEMISTRY METHOD 01/13/2025 11:[address] [facility] Comment: Assay cutoff 300 ng/mL Semi-quantitative assay for screening purposes only. Unconfirmed screening result should not be used for non-medical purposes. *ALTERNATE METHOD CONFIRMATION DONE UPON REQUEST ONLY* Urine Urine specimen obtained by clean catch procedure / Unknown Non-blood Collection / Unknown 01/13/2025 10:06 AM EDT 01/13/2025 10:38 AM EDT us Cody Nava MD LAB URINE ORDERABLES Final Resu lt Performing Organization Address [facility] de Phone Number [facility] [address] [place] [address], [place] [phone] * Phencyclidine, urine (01/13/2025 10:06 AM EDT) Only the most recent of3 resultswithin the time period is included. PCP Scrn, Ur Negative Negative LAB CHEMISTRY METHOD 01/13/2025 11:[address] [facility] Comment: Assay cutoff 25 ng/mL Semi-quantitative assay for screening purposes only. Unconfirmed screening result should not be used for non-medical purposes. *ALTERNATE METHOD CONFIRMATION DONE UPON REQUEST ONLY* Urine Urine specimen obtained by clean catch procedure / Unknown Non-blood Collection / Unknown 01/13/2025 10:06 AM EDT 01/13/2025 10:38 AM EDT us Cody Nava MD LAB URINE ORDERABLES Final Resu lt Performing Organization Address [facility]/ZIP Co de Phone Number [facility] [address] [place] [address], * CBC auto differential (01/13/2025 8:11 AM EDT) Only the most recent of3 resultswithin the time period is included. WBC 8.9 4.8 - 10.8 K/mcL LAB HEMETOLOGY METHOD 01/13/2025 8:[address] [facility] RBC 4.70 3.80 - 4.80 M/mcL LAB HEMETOLOGY METHOD 01/13/2025 8:[address] [facility] Hemoglobin 13.3 11.5 - 16.0 g/dL LAB HEMETOLOGY METHOD 01/13/2025 8:[address] [facility] Hematocrit 40.9 35.0 - 47.0 % LAB HEMETOLOGY METHOD 01/13/2025 8:[address] [facility] MCV 87.0 79.0 - 98.0 FL LAB HEMETOLOGY METHOD 01/13/2025 8:[address] [facility] MCH 28.3 27.0 - 32.0 pcg LAB HEMETOLOGY METHOD 01/13/2025 8:[address] [facility] MCHC 32.5 32.0 - 37.0 g/dL LAB HEMETOLOGY METHOD 01/13/2025 8:[address] [facility] RDW 14.0 11.0 - 15.0 % LAB HEMETOLOGY METHOD 01/13/2025 8:[address] [facility] Platelets 290 130 - 400 K/mcL LAB HEMETOLOGY METHOD 01/13/2025 8:[address] [facility] MPV 9.9 7.0 - 11.0 FL LAB HEMETOLOGY METHOD 01/13/2025 8:[address] [facility] NRBC 0.0 <1.0 % LAB HEMETOLOGY METHOD 01/13/2025 8:[address] [facility] NRBC Absolute 0.00 <0.10 K/mcL LAB HEMETOLOGY METHOD 01/13/2025 8:[address] [facility] Neutrophils Relative 73.4 % LAB HEMETOLOGY METHOD 01/13/2025 8:[address] [facility] Lymphocytes Relative 19.9 % LAB HEMETOLOGY METHOD 01/13/2025 8:[address] [facility] Monocytes Relative 5.5 % LAB HEMETOLOGY METHOD 01/13/2025 8:[address] [facility] Eosinophils Relative 0.5 % LAB HEMETOLOGY METHOD 01/13/2025 8:[address] [facility] Basophils Relative 0.5 % LAB HEMETOLOGY METHOD 01/13/2025 8:[address] [facility] Immature Granulocytes Relative 0.2 % LAB HEMETOLOGY METHOD 01/13/2025 8:[address] [facility] Neutrophils Absolute 6.50 1.50 - 7.00 K/mcL LAB HEMETOLOGY METHOD 01/13/2025 8:[address] [facility] Lymphocytes Absolute 1.76 1.00 - 5.00 K/mcL LAB HEMETOLOGY METHOD 01/13/2025 8:[address] [facility] Monocytes Absolute 0.49 0.20 - 1.00 K/mcL LAB HEMETOLOGY METHOD 01/13/2025 8:[address] [facility] Eosinophils Absolute 0.04 0.00 - 0.50 K/mcL LAB HEMETOLOGY METHOD 01/13/2025 8:[address] [facility] Basophils Absolute 0.04 0.00 - 0.20 K/mcL LAB HEMETOLOGY METHOD 01/13/2025 8:[address] [facility] Immature Granulocytes Absolute 0.02 0.00 - 0.03 K/mcL LAB HEMETOLOGY METHOD 01/13/2025 8:[address] [facility] Blood Venous blood specimen / Unknown Venipuncture / Unknown 01/13/2025 8:11 AM EDT 01/13/2025 8:26 AM EDT us Cody Nava MD LAB BLOOD ORDERABLES Final Resu lt Performing Organization Address [facility] Co de Phone Number [facility] [address] [place] [address], [place] [phone] * Ethanol (01/13/2025 8:11 AM EDT) Only the most recent of3 resultswithin the time period is included. Ethanol Level <3 0 - 10 mg/dL LAB CHEMISTRY METHOD 01/13/2025 9:[address] [facility] Blood Venous blood specimen / Unknown Venipuncture / Unknown 01/13/2025 8:11 AM EDT 01/13/2025 8:26 AM EDT us Cody Nava MD LAB BLOOD ORDERABLES Final Resu lt Performing Organization Address [facility] de Phone Number [facility] [address] [place] [address], [place] [phone] * (ABNORMAL) Acetaminophen level (01/13/2025 8:11 AM EDT) Only the most recent of3 resultswithin the time period is included. Acetaminophen Level <2.0(L) 10.0 - 30.0 mcg/mL LAB CHEMISTRY METHOD 01/13/2025 9:[address] [facility] Blood Venous blood specimen / Unknown Venipuncture / Unknown 01/13/2025 8:11 AM EDT 01/13/2025 8:26 AM EDT us Cody Nava MD LAB BLOOD ORDERABLES Final Resu lt Performing Organization Address City/[facility]/ZIP Co de Phone Number [facility] [address] [place] [address], [place] [phone] * Salicylate level (01/13/2025 8:11 AM EDT) Only the most recent of3 resultswithin the time period is included. Pathologist [facility] Salicylate Level 2.6 2.0 - 29.0 mg/dL LAB CHEMISTRY METHOD 01/13/2025 9:[address] [facility] Blood Venous blood specimen / Unknown Venipuncture / Unknown 01/13/2025 8:11 AM EDT 01/13/2025 8:26 AM EDT us Cody Nava MD LAB BLOOD ORDERABLES Final Resu lt Performing Organization Address [facility] Co de Phone Number [facility] [address] [place] [address], [place] [phone] * (ABNORMAL) Comprehensive metabolic panel (01/13/2025 8:11 AM EDT) Only the most recent of3 resultswithin the time period is included. Sodium 135 133 - 145 mmol/L LAB CHEMISTRY METHOD 01/13/2025 9:[address] [facility] Potassium 3.6 3.5 - 5.5 mmol/L LAB CHEMISTRY METHOD 01/13/2025 9:[address] [facility] Chloride 103 96 - 110 mmol/L LAB CHEMISTRY METHOD 01/13/2025 9:[address] [facility] CO2 26 21 - 32 mmol/L LAB CHEMISTRY METHOD 01/13/2025 9:[address] [facility] Anion Gap 6 3 - 11 LAB CHEMISTRY METHOD 01/13/2025 9:[address] [facility] Glucose 100 70 - 100 mg/dL LAB CHEMISTRY METHOD 01/13/2025 9:[address] [facility] BUN 15 5 - 25 mg/dL LAB CHEMISTRY METHOD 01/13/2025 9:[address] [facility] Creatinine 0.74 0.50 - 1.10 mg/dL LAB CHEMISTRY METHOD 01/13/2025 9:[address] [facility] eGFR 108 >=60 mL/min/1. 73m2 LAB CHEMISTRY METHOD 01/13/2025 9:[address] [facility] Comment:Calculation based on the Chronic Kidney Disease Epidemiology Collaboration (CKD-EPI) equation refit without adjustment for race. BUN/Creatinine Ratio 20.3 LAB CHEMISTRY METHOD 01/13/2025 9:[address] [facility] Calcium 9.8 8.5 - 10.5 mg/dL LAB CHEMISTRY METHOD 01/13/2025 9:[address] [facility] AST (SGOT) 27 10 - 42 unit/L LAB CHEMISTRY METHOD 01/13/2025 9:[address] [facility] ALT (SGPT) 36 10 - 60 unit/L LAB CHEMISTRY METHOD 01/13/2025 9:[address] [facility] Alkaline Phosphatase 76 42 - 121 unit/L LAB CHEMISTRY METHOD 01/13/2025 9:[address] [facility] Total Protein 8.5(H) 6.0 - 8.0 g/dL LAB CHEMISTRY METHOD 01/13/2025 9:[address] [facility] Albumin 4.4 3.2 - 5.0 g/dL LAB CHEMISTRY METHOD 01/13/2025 9:[address] [facility] Total Bilirubin 0.7 0.0 - 1.4 mg/dL LAB CHEMISTRY METHOD 01/13/2025 9:[address] [facility] Blood Venous blood specimen / Unknown Venipuncture / Unknown 01/13/2025 8:11 AM EDT 01/13/2025 8:26 AM EDT us Cody Nava MD LAB BLOOD ORDERABLES Final Resu lt Performing Organization Address [facility] Co de Phone Number [facility] [address] [place] [address], [place] [phone] * ECG-Annotated (12/15/2024) us Provider Onbase ECG ORDERABLES Final Result * ECG 12 lead (12/13/2024 3:08 PM EDT) Ventricular Rate ECG 54 BPM GEMUSE Atrial Rate 54 BPM GEMUSE P-R Interval 132 ms GEMUSE QRS Duration 84 ms GEMUSE Q-T Interval 412 ms GEMUSE QTc 390 ms GEMUSE P Wave Scammon 37 degrees GEMUSE R [place]am[place] 53 degrees GEMUSE T Scammon 12 degrees GEMUSE ECG Interpretation Sinus bradycardia with sinus arrhythmia Otherwise normal ECG When compared with ECG of 09-OCT-2024 06:03, No significant change was found Confirmed by KATRIN PATEL ([id number]) on 12/15/2024 9:48:27 AM GEMUSE 12/13/2024 3:08 PM EDT 12/15/2024 9:48 AM EDT us Jovanna Sotelo DO ECG ORDERABLES Final Res ult Performing Organization Address [facility] Co de Phone Number GEMUSE * Hepatitis C antibody (08/10/2024 7:15 AM EST) Pathologist [facility] Hepatitis C Antibody Negative Negative LAB CHEMISTRY METHOD 08/10/2024 3:[address] [facility] Blood Venous blood specimen / Unknown 08/10/2024 7:15 AM EST 08/10/2024 2:25 PM EST Sadie Sanchez MD LAB BLOOD ORDERABLES Fi nal Result Performing Organization Address [facility]/ZIP Co de Phone Number [facility] [address] [place] [address], [place] [phone] * HIV 1,2 antibody, p24 antigen with reflex to differentiation (08/10/2024 7:15 AM EST) HIV Combo AB/AG Negative Negative LAB CHEMISTRY METHOD 08/10/2024 3:[address] [facility] Blood Venous blood specimen / Unknown 08/10/2024 7:15 AM EST 08/10/2024 2:[address] [facility] - 08/10/2024 3:54 PM EST This assay is a 4th generation assay allowing for earlier detection of HIV infection by detecting the presence of the HIV-1 p24 antigen as well as the traditional antibodies to HIV type 1 (including group O) and type 2. Use of a 4th generation assay is the current CDC recommendation for HIV screening. Sadei Sanchez MD LAB BLOOD ORDERABLES Fi nal Result Performing Organization Address [facility]/ZIP Co de Phone Number [facility] [address] [place] [address], [place] [phone] from Last 3 Months or Most Recently Relevant to Health Maintenance Insurance MEDICAID - [place] Care Teams Information Management Officer Relationship Specialty Start Date End Date Physician, No Pcp PCP - General 07/12/24
[2025-01-13 16:30] VITALS: BP 131/85; PULSE 71; RESP 16; TEMP 36.9; O2SAT 96
[2025-01-13 17:24] VITALS: BMI 28.0
--- NOTE | 2025-01-13 17:50 | HE.PHANOTE ---
RE: METHADONE DOSING Last dose of methadone 90 mg was given at [facility] on 01/13/25 @0711 per Raeann Salazar RN.
[2025-01-13] MEDS: Nicotine 21 MG PATCH.TD24 TRANSDERMA (18:13)
[2025-01-13 19:15] VITALS: BP 144/71; PULSE 86; RESP 16; TEMP 36.8; O2SAT 99
--- NOTE | 2025-01-13 19:28 | PC.ADMIT ---
Patient is a 34 year old female, admitted from [facility] at 1620 on a CV with a dx of Schizoaffective Disorder, Bipolar Type, Stimulant Use and Opioid Use Disorder. After receiving her dose of Methadone this morning at [facility], patient reported to the staff at the facility increasing SI, and delusions of having a computer chip in her head . During assessment, patient is pleasant and cooperative, though has been tearful and reported feeling anxious throughout the admission process (given PRN hydroxyzine with some effect). She is alert and oriented with no delusions or disorganized thought process noted during interactions. Patient reports recently braking up with her boyfriend who she had been residing with, and now has been living on the streets and doing drugs to deal with it . Tox screen positive for cocaine, THC and fentanyl. When asked about substance use, pt stated I used to do heroin but it's been months, now I just do crack every day . Reports last use of cocaine was in the morning Right before getting my methadone . She reports having increased depression with SI, but denies any current plan. Endorses occasional AH that sometimes tell me to hurt myself but stated feeling comfortable coming to staff if these thoughts occur. She reports difficulty sleeping at night but utilizes her prescribed medications with effect. Patient's goal for discharge is To get into a CSS program . Skin check completed with no significant findings, placed on 15 minute checks for safety.
[2025-01-13 21:40] VITALS: BP 122/80
--- NOTE | 2025-01-14 06:37 | HO.PM.IMCN ---
History of Present Illness Data of Consult Service Date: 01/14/25 Requesting physician: Osiris Britton Primary Care Provider: Unknown Physician HPI Reason for consult: new admission H&P Patient is a 34-year-old female with a past medical history significant for polysubstance abuse, schizoaffective disorder, bipolar, admitted to adult Psychiatry after reporting visual hallucinations at [facility]. Hospitalist consultation was placed for medical clearance/new admission H&P. The patient has no medical concerns currently, she denies any chest pain, shortness of breath, nausea, vomiting, abdominal pain, headache or urinary symptoms. She is reporting significant anxiety. She admits to a history of polysubstance use disorder including history of IV heroin months ago, most recently using crack cocaine. Tox screen was positive for cocaine, THC and fentanyl. Review of Systems Constitutional: Constitutional: Denies body ache(s), Denies chills, Denies fatigue, Denies fever(s) and Denies headache(s) Eyes: Eyes: Denies change in vision ENT: Denies headache(s), Denies nasal congestion and Denies sore throat Cardiovascular: Cardiovascular: Denies chest pain, Denies rapid heart rate, Denies leg edema, Denies lightheadedness and Denies dyspnea Respiratory: Respiratory: Denies chest congestion, Denies cough, Denies dyspnea and Denies wheezing Gastrointestinal: Gastrointestinal: Denies abdominal pain, Denies diarrhea, Denies nausea and Denies vomiting Genitourinary: Genitourinary: Denies dysuria and Denies urinary urgency Musculoskeletal: Musculoskeletal: Denies back pain and Denies myalgias Integumentary/Breasts: Skin/Breast: Denies rash Neurologic: Denies confusion and Denies headache(s) Psychiatric: Psychiatric: Reports as per HPI and Denies confusion Endocrine: Endocrine: Denies fatigue Hematologic/Lymphatic: Hematologic/Lymphatic: Denies easy bleeding and Denies easy bruising Allergic/Immunologic: Allergic/Immunologic: Denies wheezing PMFSH Medical History Bipolar disorder Polysubstance abuse Functional capacity: independent ambulation Social History Household Members: None Household Members Other:: Patient currently unable to participate, floridly psychotic Housing: Homeless Housing Other:: Patient currently unable to participate, floridly psychotic Do you presently have visiting nurse or other home services: No Alcohol intake: never Patient Tobacco Use Status: Refuse Tobacco use screen Tobacco use type: Cigarette Cigarette Packs Per Day: 1 Cigarettes Per Day: 20.0 Smoked in Last 30 Days: Yes e-Cigarette/Vaping Use: Currently Using Frequency of e-Cigarette/Vaping Use: daily Patient Interested in Nicotine Replacement: Yes Patient Given Instructions on How to Stop Smoking: Yes Date Education Initiated: 01/13/25 Second Hand Smoke Exposure: No Substance Use Type: Crack/Cocaine and Opiates Currently Displaying Signs/Symptoms of Drug Intoxication Withdrawal: No Have you been hit, kicked, punched, or otherwise hurt by someone within the past year? If so, by whom?: No Do you feel safe in your current relationship?: No Current Relationship Is there a partner from a previous relationship who is making you feel unsafe now?: No Are you made to feel afraid or neglected: No Spiritual Healthcare Practices: None Congregational Healthcare Practices: None Cultural Healthcare Practices: None Advance Directives: No Advance Directives Information Provided: No Do you have thoughts of harming others: None Do you have a plan to hurt others: No Plan Recently lost weight without trying: No How much weight loss: Not applicable Eating poorly because of decreased appetite: No Nutrition screen score: 0 Nutrition Risks: No Nutritional Risk Patient : No : No Poor oral hygiene: No service: No Sexual orientation: Straight/Heterosexual Narrative: smoked 1ppd with additional vaping, no alcohol. uses crack cocaine, hx of IV heroin, none in the past few months. Meds Allergies Allergy/AdvReac Type Severity Reaction Status Date / Time Sulfa (Sulfonamide Allergy Unknown Unknown Verified 12/13/24 18:42 Antibiotics) Active Medications: Current Medications Acetaminophen (Acetaminophen 325 Mg Tablet) 650 mg PO Q6H PRN PRN Reason: Headache/Pain, Scale 1-10 Al Hydroxide/Mg Hydroxide (Magnesium Hydrox/Alum Hydrox 30 Ml Oral.Susp) 30 ml PO Q6H PRN PRN Reason: Heartburn/Nausea Clonazepam (Clonazepam 1 Mg Tablet) 1 mg PO BID [facility] Last Admin: 01/13/25 21:37 Dose: 1 mg Clonidine HCl (Clonidine Hcl 0.1 Mg Tablet) 0.1 mg PO TID [facility]; Protocol Last Admin: 01/13/25 21:40 Dose: 0.1 mg Gabapentin (Gabapentin 400 Mg Capsule) 800 mg PO TID [facility] Last Admin: 01/13/25 21:37 Dose: 800 mg Hydroxyzine HCl (Hydroxyzine Hcl 50 Mg Tablet) 50 mg PO Q8H PRN PRN Reason: mild anxiety Magnesium Hydroxide (Milk Of Magnesia 30 Ml Oral.Susp) 30 ml PO DAILY PRN PRN Reason: Constipation Methadone HCl (Methadone Hcl 20 Mg/2 Ml Oral.Conc) 90 mg PO DAILY@0800 [facility] Multivitamins/Vitamin C (Multivitamin Tablet) 1 tab PO DAILY [facility] Naloxone HCl (Naloxone Hcl Nasal 4 Mg [place]) 4 mg NOSTRILALT ONCE PRN PRN Reason: opiate overdose Nicotine (Nicotine 21 Mg Patch.Td24) 21 mg TRANSDERMA DAILY [facility] Last Admin: 01/13/25 18:13 Dose: 21 mg Nicotine Polacrilex (Nicotine Polacrilex 2 Mg Gum) 4 mg BUCCAL Q2H PRN PRN Reason: Nicotine Cravings Last Admin: 01/14/25 06:29 Dose: 4 mg Quetiapine Fumarate (Quetiapine Fumarate 25 Mg Tablet) 75 mg PO BID PRN PRN Reason: anxiety Last Admin: 01/13/25 19:25 Dose: 75 mg Trazodone HCl (Trazodone Hcl 50 Mg Tablet) 50 mg PO BEDTIME MRX1 PRN PRN Reason: Sleep Home Medications ?Medication ?Instructions ?Recorded ?Confirmed ?Last Taken ?Type methadone 10 mg/mL oral concentrate 90 mg PO DAILY 10/31/24 01/13/25 01/13/25 History gabapentin 800 mg tablet 800 mg PO TID 01/13/25 01/13/25 Unknown History Physical Exam Vital Signs and Narrative: Vital Signs: Last Vital Signs Temp 98.3 F 01/13/25 19:15 Pulse 86 01/13/25 19:15 Resp 16 01/13/25 19:15 BP 122/80 01/13/25 21:40 Pulse Ox 99 01/13/25 19:15 O2 Del Method Room Air 01/13/25 19:15 BMI result Body Mass Index 28.0 General: AOx3, no acute distress Resp: CTA bilaterally CVS: S1, S2, RRR GI: +BS, NT, no distention Skin: Warm, dry Neuro: Cranial nerves II-XII grossly intact bilaterally. Motor grossly intact bilaterally Extremities: No LE edema Psych: Anxious, tearful Const: General: No confusion Orientation/consciousness: No confusion Neuro: General: No confusion Assessment and Plan (1) Mood disorder: Status: Acute (2) Cocaine abuse: Status: Acute (3) Opiate abuse, episodic: Status: Acute (4) Polysubstance abuse: Status: Acute Plan Patient is a 34-year-old female with a past medical history significant for polysubstance abuse, schizoaffective disorder, bipolar, admitted to adult Psychiatry after reporting visual hallucinations at [facility]. Hospitalist consultation was placed for medical clearance/new admission H&P. the pt has no current medical concerns. mood disorder - plan per psych cocaine abuse, polysubstance abuse - tox + THC, fentanyl, cocaine - no active withdrawal - addiction med consult in tobacco use disorder - nicotine replacement - smoking cessation encouraged Thank you for allowing me to participate in the pt's care. Signing off for now. Please contact the medical team if any questions or concerns.
[2025-01-14 07:00] VITALS: BMI 28.4
[2025-01-14 07:30] VITALS: BP 148/68; PULSE 106; RESP 16; TEMP 36.9; O2SAT 98
[2025-01-14] MEDS: methADONE HCl 20 MG/2 ML ORAL.CONC 90 MG PO (07:49)
[2025-01-14 08:08] LABS: Alanine Aminotransferase 28 U/L (0-31); Albumin Level 4.5 g/dL (3.5-5.0); Alkaline Phosphatase 81 U/L (39-117); Anion Gap 13 (12-20); Aspartate Amino Transferase 36 U/L (5-31); Blood Urea Nitrogen 13 mg/dL (9-16); Calcium 9.5 mg/dL (8.4-10.2); Carbon Dioxide 24 mmol/L (22-29); Chloride 106 mmol/L (96-108); Cholesterol 185 mg/dL (<200); Creatinine Clr Calc Pharmacy 89.8; Estimated Glomerular Filt Rate > 60; HDL Cholesterol 62 mg/dL (>40); Potassium 4.1 mmol/L (3.3-5.1); Sodium 139 mmol/L (135-145); Total Protein 8.0 g/dL (6.5-8.0); Triglycerides 73 mg/dL (<150)
[2025-01-14 08:11] LABS: Hemoglobin A1C 106.5057 umol/L; Total Hemoglobin (HGBA1C) 3563.2753 umol/L
[2025-01-14] MEDS: Nicotine 21 MG PATCH.TD24 TRANSDERMA (08:16)
--- NOTE | 2025-01-14 09:14 | HO.PSYADMNOT ---
HPI Date of Service: 01/14/25 Chief Complaint: F25. F14.20, F11.20 Sources of Information: patient interviewed, chart reviewed and crisis/core team assessment reviewed HPI Subjective Notes: [place] Warning and Conditional Voluntary Narrative: Patient is a 34-year-old female with history of schizoaffective disorder, PTSD, opiate use disorder and cocaine use disorder, who presented to ER due to suicidal ideation secondary to medication noncompliance, substance use and paranoid delusions. Per crisis report, patient presented to ER reporting she has a computer chip in her brain and needs it to be turned off . Pt reports she has been using crack cocaine. Patient reported suicidal ideation; history of attempting to jump in front of traffic. Patient reports the chip needs to be turned off in order for her to sleep . Patient reports she has not slept in days. Per documentation, patient having delusion of a computer chip in her head and hearing others talk is patient's baseline. Patient reports she recently broke up with her boyfriend and has been homeless and using crack cocaine. Utox positive for cocaine, cannabis and fentanyl. Patient reports she is sick of living this way and came to the ER instead of hurting herself. Patient reports suicidal ideation with plans to either jump in front of cars, lay on the railroad or overdose on heroin. denies HI/VH. History of self-injurious behavior via scratching herself, burning herself, and pulling her hair. History of suicide attempts via jumping in front of cars, however, she is unable to identify last attempt. During admission assessment, patient presents alert and oriented x3. Calm and cooperative. Patient reports feeling depressed; patient stated, they put a microchip in my head when I was younger to scan if I had blood clots. My father now downloaded [employer] to the chip in my head. I know it's in there and people keep lying to me about it. They also put my name on the sex offender website even though I'm not a sex offender . Patient reports suicidal ideation due to feeling alone. She reports auditory hallucinations telling her no one loves her and to harm herself . Patient does not have outpatient psychiatric providers at this time. Patient reports she has not been medication compliant since being discharged recently from on December 22 2024. Patient reports she would like a referral to a [facility] and to be restarted on her home medications. She reports she is not interested in taking [place] or Depakote as she has in the past and she feels they were not beneficial. Past Psychiatric History: h/o multiple psychiatric admissions MAT via [facility] Does not have outpatient psychiatric providers at this time. Medical Evaluation Reviewed: Yes [facility] Medical History Bipolar disorder Polysubstance abuse Family History: Unknown Social History: Homeless. Single. No kids. Disability. Substance History: Patient reports history of crack, heroin and marijuana use. U tox positive for cocaine, marijuana and fentanyl. Trauma History: Yes Diagnostics Vital Signs (24Hr): Vital Signs - 24 hr 01/13/25 16:30 01/13/25 19:15 01/13/25 21:40 Temperature 98.5 F 98.3 F Pulse Rate 71 86 Respiratory Rate 16 16 Blood Pressure 131/85 144/71 H 122/80 Pulse Oximetry 96 99 Oxygen Delivery Method Room Air Room Air 01/14/25 07:30 Temperature 98.4 F Pulse Rate 106 H Respiratory Rate 16 Blood Pressure 148/68 H Pulse Oximetry 98 Oxygen Delivery Method Room Air BMI result Body Mass Index 28.4 Labs 01/14/25 07:36 Labs: Laboratory Results - last 48 hr 01/14/25 07:36 Sodium 139 Potassium 4.1 Chloride 106 Carbon Dioxide 24 Anion Gap 13 BUN 13 Creatinine 0.79 Estim Creat Clear Calc 89.8 Estimated GFR > 60 Random Glucose 75 Estimat Average Glucose 94 Hemoglobin A1c % 4.9 Calcium 9.5 Total Bilirubin 0.5 AST 36 H ALT 28 Alkaline Phosphatase 81 Total Protein 8.0 Albumin 4.5 Triglycerides 73 Cholesterol 185 LDL Cholesterol, Calc 109 H HDL Cholesterol 62 Meds/Allergies Meds Home Medications ?Medication ?Instructions ?Recorded ?Confirmed ?Type methadone 10 mg/mL oral concentrate 90 mg PO DAILY 10/31/24 01/13/25 History gabapentin 800 mg tablet 800 mg PO TID 01/13/25 01/13/25 History Allergies Allergies Allergy/AdvReac Type Severity Reaction Status Date / Time Sulfa (Sulfonamide Allergy Unknown Unknown Verified 12/13/24 18:42 Antibiotics) Mental Status Exam Mental Status Exam Patient Appearance: Disheveled Patient Orientation: Person, Place, Time and Situation Level of Consciousness: Awake and Alert Patient Behavior: Guarded, Cooperative, Suspicious and Good Eye Contact Mood Description: Depressed Affect Description: Depressed Ability to Follow Directions: Good Speech Pattern: Clear Hallucinations: Auditory Delusions: Paranoid Ideation Thought Process: Goal Oriented Thought Content: positive for Goal Oriented Assessment & Plan Assessment & Plan (1) Schizoaffective disorder, depressive type: Status: Acute Code(s): F25.1 - Schizoaffective disorder, depressive type (2) PTSD (post-traumatic stress disorder): Status: Acute Code(s): F43.10 - Post-traumatic stress disorder, unspecified (3) Cocaine use disorder: Status: Acute Code(s): F14.10 - Cocaine abuse, uncomplicated (4) Opioid use disorder: Status: Acute Code(s): F11.90 - Opioid use, unspecified, uncomplicated (5) Homelessness: Status: Acute Code(s): Z59.00 - Homelessness unspecified Plan Patient is a 34-year-old female with history of schizoaffective disorder, PTSD, opiate use disorder and cocaine use disorder, who presented to ER due to suicidal ideation secondary to medication noncompliance, substance use and paranoid delusions. Plan: CV 15 minute safety checks Continue home medications Obtain collateral Encourage groups Referral to outpatient psychiatric providers Referral to [facility] Discharge planning Patient educated on: diagnosis and medication risk/benefits Reason for continued inpatient stay Substantial Risk for: harm to self and med/psych decompensation Statement Statement: I have reviewed the history and physical and performed a pertinent examination on my patient. No changes have occurred unless specified. If the History and Physical was not performed prior to admission, the Hospitalist's service will be consulted for completing the admission physical. Time Spent With Patient Time: Total time managing care of this patient today _60___ minutes.
[2025-01-14 15:50] VITALS: BP 120/76; PULSE 87
[2025-01-14 15:55] VITALS: BP 120/76
[2025-01-14 19:25] VITALS: BP 121/62; PULSE 90; RESP 14; TEMP 36.8; O2SAT 99
[2025-01-14 20:58] VITALS: BP 119/56
[2025-01-15 07:50] VITALS: BP 109/57; PULSE 68; RESP 17; TEMP 2.4; TEMP 36.4; O2SAT 99
[2025-01-15] MEDS: methADONE HCl 20 MG/2 ML ORAL.CONC 90 MG PO (08:13)
[2025-01-15] MEDS: Nicotine 21 MG PATCH.TD24 TRANSDERMA (08:36)
--- NOTE | 2025-01-15 14:16 | P.PNPSI_ITS ---
Subjective Subjective Date of Service: 01/15/25 Reason For Visit: F25. F14.20, F11.20 Interim History: cooperative, appears somewhat sedated. c/o AH. agreeable to increase zyprexa to 30 mg QHS. states mood stabilizers are not for her. per staff, crying, c/o microchips in head. +SI. are you guys mad at me for being here? slept 8 hours. labile. Mental Status Exam Mental Status Exam Patient Appearance: Disheveled Patient Orientation: Person, Place, Time and Situation Level of Consciousness: Awake and Sedated Patient Behavior: Guarded, Cooperative, Suspicious and Good Eye Contact Mood Description: Depressed Affect Description: Depressed Ability to Follow Directions: Good Speech Pattern: Clear Hallucinations: Auditory Delusions: Paranoid Ideation Thought Process: Goal Oriented Thought Content: positive for Goal Oriented Diagnostics Vital Signs (24Hr): Vital Signs - 24 hr 01/14/25 15:50 01/14/25 15:55 01/14/25 19:25 Temperature 98.3 F Pulse Rate 87 90 Respiratory Rate 14 Blood Pressure 120/76 120/76 121/62 Pulse Oximetry 99 Oxygen Delivery Method Room Air 01/14/25 20:58 01/15/25 07:50 Temperature 36.4 F L Pulse Rate 68 Respiratory Rate 17 Blood Pressure 119/56 L 109/57 L Pulse Oximetry 99 Oxygen Delivery Method Room Air BMI result Body Mass Index 28.4 Labs 01/14/25 07:36 Labs: Laboratory Results - last 48 hr 01/14/25 07:36 Sodium 139 Potassium 4.1 Chloride 106 Carbon Dioxide 24 Anion Gap 13 BUN 13 Creatinine 0.79 Estim Creat Clear Calc 89.8 Estimated GFR > 60 Random Glucose 75 Estimat Average Glucose 94 Hemoglobin A1c % 4.9 Calcium 9.5 Total Bilirubin 0.5 AST 36 H ALT 28 Alkaline Phosphatase 81 Total Protein 8.0 Albumin 4.5 Triglycerides 73 Cholesterol 185 LDL Cholesterol, Calc 109 H HDL Cholesterol 62 Medications Medications Current Medications Acetaminophen (Acetaminophen 325 Mg Tablet) 650 mg PO Q6H PRN PRN Reason: Headache/Pain, Scale 1-10 Al Hydroxide/Mg Hydroxide (Magnesium Hydrox/Alum Hydrox 30 Ml Oral.Susp) 30 ml PO Q6H PRN PRN Reason: Heartburn/Nausea Clonazepam (Clonazepam 1 Mg Tablet) 1 mg PO BID [facility] Last Admin: 01/15/25 08:37 Dose: 1 mg Clonidine HCl (Clonidine Hcl 0.1 Mg Tablet) 0.1 mg PO TID [facility]; Protocol Last Admin: 01/15/25 08:37 Dose: 0.1 mg Gabapentin (Gabapentin 400 Mg Capsule) 800 mg PO TID [facility] Last Admin: 01/15/25 08:37 Dose: 800 mg Hydroxyzine HCl (Hydroxyzine Hcl 50 Mg Tablet) 50 mg PO Q8H PRN PRN Reason: mild anxiety Last Admin: 01/14/25 15:59 Dose: 50 mg Magnesium Hydroxide (Milk Of Magnesia 30 Ml Oral.Susp) 30 ml PO DAILY PRN PRN Reason: Constipation Methadone HCl (Methadone Hcl 20 Mg/2 Ml Oral.Conc) 90 mg PO DAILY@0800 [facility] Last Admin: 01/15/25 08:13 Dose: 90 mg Multivitamins/Vitamin C (Multivitamin Tablet) 1 tab PO DAILY [facility] Last Admin: 01/15/25 08:37 Dose: 1 tab Naloxone HCl (Naloxone Hcl Nasal 4 Mg [place]) 4 mg NOSTRILALT ONCE PRN PRN Reason: opiate overdose Nicotine (Nicotine 21 Mg Patch.Td24) 21 mg TRANSDERMA DAILY [facility] Last Admin: 01/15/25 08:36 Dose: 21 mg Nicotine Polacrilex (Nicotine Polacrilex 2 Mg Gum) 4 mg BUCCAL Q2H PRN PRN Reason: Nicotine Cravings Last Admin: 01/15/25 13:37 Dose: 4 mg Olanzapine (Olanzapine 10 Mg Tablet) 30 mg PO BEDTIME [facility] Quetiapine Fumarate (Quetiapine Fumarate 25 Mg Tablet) 75 mg PO Q6H PRN PRN Reason: anxiety Last Admin: 01/15/25 13:05 Dose: 75 mg Quetiapine Fumarate (Quetiapine Fumarate 25 Mg Tablet) 75 mg PO ONCE ONE Stop: 01/15/25 14:15 Trazodone HCl (Trazodone Hcl 50 Mg Tablet) 50 mg PO BEDTIME MRX1 PRN PRN Reason: Sleep Allergies Allergies Allergy/AdvReac Type Severity Reaction Status Date / Time Sulfa (Sulfonamide Allergy Unknown Unknown Verified 12/13/24 18:42 Antibiotics) Assessment & Plan Assessment & Plan (1) Schizoaffective disorder, depressive type: Status: Acute Code(s): F25.1 - Schizoaffective disorder, depressive type (2) PTSD (post-traumatic stress disorder): Status: Acute Code(s): F43.10 - Post-traumatic stress disorder, unspecified (3) Cocaine use disorder: Status: Acute Code(s): F14.10 - Cocaine abuse, uncomplicated (4) Opioid use disorder: Status: Acute Code(s): F11.90 - Opioid use, unspecified, uncomplicated (5) Homelessness: Status: Acute Code(s): Z59.00 - Homelessness unspecified Plan Patient is a 34-year-old female with history of schizoaffective disorder, PTSD, opiate use disorder and cocaine use disorder, who presented to ER due to suicidal ideation secondary to medication noncompliance, substance use and paranoid delusions. Plan: CV 15 minute safety checks Continue home medications Obtain collateral Encourage groups Referral to outpatient psychiatric providers Referral to [facility] Discharge planning 01/15: remains psychotic, distressed at paranoid delusions. agrees to increase HS zyprexa from 10 mg to 30 mg as of tonight. Reason for continued inpatient stay Substantial Risk for: harm to self and inability to function Time Spent With Patient Time: Total time managing care of this patient today __25__ minutes.
[2025-01-15 14:21] VITALS: BP 132/62
[2025-01-15 19:40] VITALS: BP 113/57; PULSE 83; RESP 18; TEMP 36.4; O2SAT 99
[2025-01-15 21:31] VITALS: BP 129/70
[2025-01-16 08:00] VITALS: BP 119/61; PULSE 89; RESP 12; TEMP 36; O2SAT 99
[2025-01-16] MEDS: methADONE HCl 20 MG/2 ML ORAL.CONC 90 MG PO (08:08)
[2025-01-16] MEDS: Nicotine 21 MG PATCH.TD24 TRANSDERMA (08:30)
--- NOTE | 2025-01-16 13:43 | P.PNPSI_ITS ---
Subjective Subjective Date of Service: 01/16/25 Reason For Visit: F25. F14.20, F11.20 Interim History: wants very brief exam. says she wants to do word searches and coloring. falling asleep at table. no requests or complaints otherwise. per staff, tearful, labile, reactive, crying. calmed with ativan 2 mg yesterday. slept 8 hours. Mental Status Exam Mental Status Exam Patient Appearance: Disheveled Patient Orientation: Person, Place, Time and Situation Level of Consciousness: Awake and Sedated Patient Behavior: Guarded, Cooperative, Suspicious and Good Eye Contact Mood Description: Depressed Affect Description: Depressed Ability to Follow Directions: Good Speech Pattern: Clear Hallucinations: Auditory Delusions: Paranoid Ideation Thought Process: Goal Oriented Thought Content: positive for Goal Oriented Diagnostics Vital Signs (24Hr): Vital Signs - 24 hr 01/15/25 14:21 01/15/25 19:40 01/15/25 21:31 Temperature 97.6 F Pulse Rate 83 Respiratory Rate 18 Blood Pressure 132/62 113/57 L 129/70 Pulse Oximetry 99 Oxygen Delivery Method Room Air 01/16/25 08:00 Temperature 96.8 F Pulse Rate 89 Respiratory Rate 12 Blood Pressure 119/61 Pulse Oximetry 99 Oxygen Delivery Method Room Air BMI result Body Mass Index 28.4 Labs 01/14/25 07:36 Medications Medications Current Medications Acetaminophen (Acetaminophen 325 Mg Tablet) 650 mg PO Q6H PRN PRN Reason: Headache/Pain, Scale 1-10 Al Hydroxide/Mg Hydroxide (Magnesium Hydrox/Alum Hydrox 30 Ml Oral.Susp) 30 ml PO Q6H PRN PRN Reason: Heartburn/Nausea Clonazepam (Clonazepam 1 Mg Tablet) 1 mg PO BID [facility] Last Admin: 01/16/25 08:31 Dose: 1 mg Clonidine HCl (Clonidine Hcl 0.1 Mg Tablet) 0.1 mg PO TID [facility]; Protocol Last Admin: 01/16/25 08:31 Dose: 0.1 mg Gabapentin (Gabapentin 400 Mg Capsule) 800 mg PO TID [facility] Last Admin: 01/16/25 08:31 Dose: 800 mg Hydroxyzine HCl (Hydroxyzine Hcl 50 Mg Tablet) 50 mg PO Q8H PRN PRN Reason: mild anxiety Last Admin: 01/16/25 08:49 Dose: 50 mg Magnesium Hydroxide (Milk Of Magnesia 30 Ml Oral.Susp) 30 ml PO DAILY PRN PRN Reason: Constipation Methadone HCl (Methadone Hcl 20 Mg/2 Ml Oral.Conc) 90 mg PO DAILY@0800 [facility] Last Admin: 01/16/25 08:08 Dose: 90 mg Multivitamins/Vitamin C (Multivitamin Tablet) 1 tab PO DAILY [facility] Last Admin: 01/16/25 08:31 Dose: 1 tab Naloxone HCl (Naloxone Hcl Nasal 4 Mg [place]) 4 mg NOSTRILALT ONCE PRN PRN Reason: opiate overdose Nicotine (Nicotine 21 Mg Patch.Td24) 21 mg TRANSDERMA DAILY [facility] Last Admin: 01/16/25 08:30 Dose: 21 mg Nicotine Polacrilex (Nicotine Polacrilex 2 Mg Gum) 4 mg BUCCAL Q2H PRN PRN Reason: Nicotine Cravings Last Admin: 01/16/25 08:51 Dose: 4 mg Olanzapine (Olanzapine 10 Mg Tablet) 30 mg PO BEDTIME [facility] Last Admin: 01/15/25 21:32 Dose: 30 mg Quetiapine Fumarate (Quetiapine Fumarate 25 Mg Tablet) 75 mg PO Q6H PRN PRN Reason: anxiety Last Admin: 01/16/25 08:49 Dose: 75 mg Trazodone HCl (Trazodone Hcl 50 Mg Tablet) 50 mg PO BEDTIME MRX1 PRN PRN Reason: Sleep Allergies Allergies Allergy/AdvReac Type Severity Reaction Status Date / Time Sulfa (Sulfonamide Allergy Unknown Unknown Verified 12/13/24 18:42 Antibiotics) Assessment & Plan Assessment & Plan (1) Schizoaffective disorder, depressive type: Status: Acute Code(s): F25.1 - Schizoaffective disorder, depressive type (2) PTSD (post-traumatic stress disorder): Status: Acute Code(s): F43.10 - Post-traumatic stress disorder, unspecified (3) Cocaine use disorder: Status: Acute Code(s): F14.10 - Cocaine abuse, uncomplicated (4) Opioid use disorder: Status: Acute Code(s): F11.90 - Opioid use, unspecified, uncomplicated (5) Homelessness: Status: Acute Code(s): Z59.00 - Homelessness unspecified Plan Patient is a 34-year-old female with history of schizoaffective disorder, PTSD, opiate use disorder and cocaine use disorder, who presented to ER due to suicidal ideation secondary to medication noncompliance, substance use and paranoid delusions. Plan: CV 15 minute safety checks Continue home medications Obtain collateral Encourage groups Referral to outpatient psychiatric providers Referral to [facility] Discharge planning 01/15: remains psychotic, distressed at paranoid delusions. agrees to increase HS zyprexa from 10 mg to 30 mg as of tonight. 01/16: sedated, nodding off. no complaints or requests to MD. continue current mgmt. Reason for continued inpatient stay Substantial Risk for: inability to function Time Spent With Patient Time: Total time managing care of this patient today ____ minutes.
[2025-01-16 14:57] VITALS: BP 124/59
[2025-01-16 20:19] VITALS: BP 125/61
[2025-01-16 20:20] VITALS: BP 125/61; PULSE 91; RESP 16; TEMP 36.9; O2SAT 95
[2025-01-17] MEDS: methADONE HCl 20 MG/2 ML ORAL.CONC 90 MG PO (08:02)
[2025-01-17] MEDS: Nicotine 21 MG PATCH.TD24 TRANSDERMA (08:30)
[2025-01-17 08:31] VITALS: BP 125/69
--- NOTE | 2025-01-17 13:23 | P.PNPSI_ITS ---
Subjective Subjective Date of Service: 01/17/25 Reason For Visit: F25. F14.20, F11.20 Interim History: no questions or concerns for MD. states she wants CSS referral. prt staff, +dep/anx. tearful. less labile than prior, however. more sedated yesterday morning and ths morning. more awake later in the day. eves crying and anxious by the phone. told peer she was suicidal but then denied it to staff combat information center officer. slept 5 hours. Mental Status Exam Mental Status Exam Patient Appearance: Disheveled Patient Orientation: Person, Place, Time and Situation Level of Consciousness: Awake and Sedated Patient Behavior: Guarded, Cooperative, Suspicious and Good Eye Contact Mood Description: Depressed Affect Description: Depressed Ability to Follow Directions: Good Speech Pattern: Clear Hallucinations: Auditory Delusions: Paranoid Ideation Thought Process: Goal Oriented Thought Content: positive for Goal Oriented Diagnostics Vital Signs (24Hr): Vital Signs - 24 hr 01/16/25 14:57 01/16/25 20:19 01/16/25 20:20 Temperature 98.5 F Pulse Rate 91 Respiratory Rate 16 Blood Pressure 124/59 L 125/61 125/61 Pulse Oximetry 95 Oxygen Delivery Method Room Air 01/17/25 08:31 Temperature Pulse Rate Respiratory Rate Blood Pressure 125/69 Pulse Oximetry Oxygen Delivery Method BMI result Body Mass Index 28.4 Labs 01/14/25 07:36 Medications Medications Current Medications Acetaminophen (Acetaminophen 325 Mg Tablet) 650 mg PO Q6H PRN PRN Reason: Headache/Pain, Scale 1-10 Al Hydroxide/Mg Hydroxide (Magnesium Hydrox/Alum Hydrox 30 Ml Oral.Susp) 30 ml PO Q6H PRN PRN Reason: Heartburn/Nausea Clonazepam (Clonazepam 1 Mg Tablet) 1 mg PO BEDTIME DANE Clonazepam (Clonazepam 0.5 Mg Tablet) 0.5 mg PO DAILY DANE Clonidine HCl (Clonidine Hcl 0.1 Mg Tablet) 0.1 mg PO TID DANE; Protocol Last Admin: 01/17/25 08:31 Dose: 0.1 mg Gabapentin (Gabapentin 400 Mg Capsule) 800 mg PO TID DANE Last Admin: 01/17/25 08:31 Dose: 800 mg Hydroxyzine HCl (Hydroxyzine Hcl 50 Mg Tablet) 50 mg PO Q8H PRN PRN Reason: mild anxiety Last Admin: 01/17/25 12:36 Dose: 50 mg Magnesium Hydroxide (Milk Of Magnesia 30 Ml Oral.Susp) 30 ml PO DAILY PRN PRN Reason: Constipation Methadone HCl (Methadone Hcl 20 Mg/2 Ml Oral.Conc) 90 mg PO DAILY@0800 [facility] Last Admin: 01/17/25 08:02 Dose: 90 mg Multivitamins/Vitamin C (Multivitamin Tablet) 1 tab PO DAILY [facility] Last Admin: 01/17/25 08:31 Dose: 1 tab Naloxone HCl (Naloxone Hcl Nasal 4 Mg [place]) 4 mg NOSTRILALT ONCE PRN PRN Reason: opiate overdose Nicotine (Nicotine 21 Mg Patch.Td24) 21 mg TRANSDERMA DAILY [facility] Last Admin: 01/17/25 08:30 Dose: 21 mg Nicotine Polacrilex (Nicotine Polacrilex 2 Mg Gum) 4 mg BUCCAL Q2H PRN PRN Reason: Nicotine Cravings Last Admin: 01/17/25 12:37 Dose: 4 mg Olanzapine (Olanzapine 10 Mg Tablet) 30 mg PO BEDTIME [facility] Last Admin: 01/16/25 20:19 Dose: 30 mg Quetiapine Fumarate (Quetiapine Fumarate 25 Mg Tablet) 75 mg PO Q6H PRN PRN Reason: anxiety Last Admin: 01/17/25 12:35 Dose: 75 mg Trazodone HCl (Trazodone Hcl 50 Mg Tablet) 50 mg PO BEDTIME MRX1 PRN PRN Reason: Sleep Allergies Allergies Allergy/AdvReac Type Severity Reaction Status Date / Time Sulfa (Sulfonamide Allergy Unknown Unknown Verified 12/13/24 18:42 Antibiotics) Assessment & Plan Assessment & Plan (1) Schizoaffective disorder, depressive type: Status: Acute Code(s): F25.1 - Schizoaffective disorder, depressive type (2) PTSD (post-traumatic stress disorder): Status: Acute Code(s): F43.10 - Post-traumatic stress disorder, unspecified (3) Cocaine use disorder: Status: Acute Code(s): F14.10 - Cocaine abuse, uncomplicated (4) Opioid use disorder: Status: Acute Code(s): F11.90 - Opioid use, unspecified, uncomplicated (5) Homelessness: Status: Acute Code(s): Z59.00 - Homelessness unspecified Plan Patient is a 34-year-old female with history of schizoaffective disorder, PTSD, opiate use disorder and cocaine use disorder, who presented to ER due to suicidal ideation secondary to medication noncompliance, substance use and paranoid delusions. Plan: CV 15 minute safety checks Continue home medications Obtain collateral Encourage groups Referral to outpatient psychiatric providers Referral to CSS Discharge planning 01/15: remains psychotic, distressed at paranoid delusions. agrees to increase HS zyprexa from 10 mg to 30 mg as of tonight. 01/16: sedated, nodding off. no complaints or requests to MD. continue current mgmt. 01/17: nodding off again this morning. morning klonopin decreased from 1 mg to 0.5 mg as of tomorrow. less microchip talk, seemingly. asking for CSS referral. Reason for continued inpatient stay Substantial Risk for: inability to function Time Spent With Patient Time: Total time managing care of this patient today ____ minutes.
[2025-01-17 15:28] VITALS: BP 128/67; PULSE 99
[2025-01-17 20:38] VITALS: BP 101/59; PULSE 90; RESP 16; TEMP 36.2; O2SAT 97
[2025-01-18 07:44] VITALS: BP 121/71; PULSE 80; RESP 20; TEMP 36; O2SAT 96
[2025-01-18] MEDS: methADONE HCl 20 MG/2 ML ORAL.CONC 90 MG PO (07:59)
[2025-01-18 08:40] VITALS: BP 121/71
[2025-01-18] MEDS: Nicotine 21 MG PATCH.TD24 TRANSDERMA (08:42)
--- NOTE | 2025-01-18 10:27 | P.PNPSI_ITS ---
Subjective Subjective Date of Service: 01/18/25 Reason For Visit: F25. F14.20, F11.20 Subjective Notes: Conditional Voluntary Interim History: Keeping to self. Patient reports feeling anxious and depressed ; pt stated, I'm thinking about how I wasted my life with 2 different guys . per nursing, slept 8 hours. appears sedated during conversation, nodding off at times. Gabapentin decreased to 600mg PO TID. pt denies SI/HI/VH/AH. Encourged to attend groups. Medication Compliance: Yes Mental Status Exam Mental Status Exam Narrative: Pt is alert and oriented; behavior is cooperative and calm, nodding off; dressed in casual attire; mood is described as anxious and depressed ; eye contact appropriate; Speech is normal rate, volume and not pressured; thought process is organized and goal directed; Thought content is on tx; denies SI/HI/AH/VH. Diagnostics Vital Signs (24Hr): Vital Signs - 24 hr 01/17/25 15:28 01/17/25 20:38 01/18/25 07:44 Temperature 97.1 F 96.8 F Pulse Rate 99 90 80 Respiratory Rate 16 20 Blood Pressure 128/67 101/59 L 121/71 Pulse Oximetry 97 96 Oxygen Delivery Method Room Air Room Air 01/18/25 08:40 Temperature Pulse Rate Respiratory Rate Blood Pressure 121/71 Pulse Oximetry Oxygen Delivery Method BMI result Body Mass Index 28.4 Labs 01/14/25 07:36 Medications Medications Current Medications Acetaminophen (Acetaminophen 325 Mg Tablet) 650 mg PO Q6H PRN PRN Reason: Headache/Pain, Scale 1-10 Al Hydroxide/Mg Hydroxide (Magnesium Hydrox/Alum Hydrox 30 Ml Oral.Susp) 30 ml PO Q6H PRN PRN Reason: Heartburn/Nausea Clonazepam (Clonazepam 1 Mg Tablet) 1 mg PO BEDTIME DANE Last Admin: 01/17/25 20:40 Dose: 1 mg Clonazepam (Clonazepam 0.5 Mg Tablet) 0.5 mg PO DAILY DANE Last Admin: 01/18/25 08:41 Dose: 0.5 mg Clonidine HCl (Clonidine Hcl 0.1 Mg Tablet) 0.1 mg PO TID DANE; Protocol Last Admin: 01/18/25 08:40 Dose: 0.1 mg Gabapentin (Gabapentin 400 Mg Capsule) 800 mg PO TID DANE Last Admin: 01/18/25 08:41 Dose: 800 mg Hydroxyzine HCl (Hydroxyzine Hcl 50 Mg Tablet) 50 mg PO Q8H PRN PRN Reason: mild anxiety Last Admin: 01/17/25 12:36 Dose: 50 mg Magnesium Hydroxide (Milk Of Magnesia 30 Ml Oral.Susp) 30 ml PO DAILY PRN PRN Reason: Constipation Methadone HCl (Methadone Hcl 20 Mg/2 Ml Oral.Conc) 90 mg PO DAILY@0800 [facility] Last Admin: 01/18/25 07:59 Dose: 90 mg Multivitamins/Vitamin C (Multivitamin Tablet) 1 tab PO DAILY [facility] Last Admin: 01/18/25 08:41 Dose: 1 tab Naloxone HCl (Naloxone Hcl Nasal 4 Mg [place]) 4 mg NOSTRILALT ONCE PRN PRN Reason: opiate overdose Nicotine (Nicotine 21 Mg Patch.Td24) 21 mg TRANSDERMA DAILY [facility] Last Admin: 01/18/25 08:42 Dose: 21 mg Nicotine Polacrilex (Nicotine Polacrilex 2 Mg Gum) 4 mg BUCCAL Q2H PRN PRN Reason: Nicotine Cravings Last Admin: 01/18/25 03:25 Dose: 4 mg Olanzapine (Olanzapine 10 Mg Tablet) 30 mg PO BEDTIME [facility] Last Admin: 01/17/25 20:39 Dose: 30 mg Quetiapine Fumarate (Quetiapine Fumarate 25 Mg Tablet) 75 mg PO Q6H PRN PRN Reason: anxiety Last Admin: 01/18/25 03:24 Dose: 75 mg Trazodone HCl (Trazodone Hcl 50 Mg Tablet) 50 mg PO BEDTIME MRX1 PRN PRN Reason: Sleep Allergies Allergies Allergy/AdvReac Type Severity Reaction Status Date / Time Sulfa (Sulfonamide Allergy Unknown Unknown Verified 12/13/24 18:42 Antibiotics) Assessment & Plan Assessment & Plan (1) Schizoaffective disorder, depressive type: Status: Acute Code(s): F25.1 - Schizoaffective disorder, depressive type (2) PTSD (post-traumatic stress disorder): Status: Acute Code(s): F43.10 - Post-traumatic stress disorder, unspecified (3) Cocaine use disorder: Status: Acute Code(s): F14.10 - Cocaine abuse, uncomplicated (4) Opioid use disorder: Status: Acute Code(s): F11.90 - Opioid use, unspecified, uncomplicated (5) Homelessness: Status: Acute Code(s): Z59.00 - Homelessness unspecified Plan Patient is a 34-year-old female with history of schizoaffective disorder, PTSD, opiate use disorder and cocaine use disorder, who presented to ER due to suicidal ideation secondary to medication noncompliance, substance use and paranoid delusions. Plan: CV 15 minute safety checks Continue home medications Obtain collateral Encourage groups Referral to outpatient psychiatric providers Referral to CSS Discharge planning 01/15: remains psychotic, distressed at paranoid delusions. agrees to increase HS zyprexa from 10 mg to 30 mg as of tonight. 01/16: sedated, nodding off. no complaints or requests to MD. continue current mgmt. 01/17: nodding off again this morning. morning klonopin decreased from 1 mg to 0.5 mg as of tomorrow. less microchip talk, seemingly. asking for CSS referral. 01/18: Keeping to self. Patient reports feeling anxious and depressed ; pt stated, I'm thinking about how I wasted my life with 2 different guys . per nursing, slept 8 hours. appears sedated during conversation, nodding off at times. Gabapentin decreased to 600mg PO TID. pt denies SI/HI/VH/AH. Encouraged to attend groups. Patient educated on: diagnosis, medication risk/benefits and therapeutic strategies Reason for continued inpatient stay Substantial Risk for: med/psych decompensation Time Spent With Patient Time: Total time managing care of this patient today _20___ minutes.
[2025-01-18 15:01] VITALS: BP 128/61
[2025-01-18 21:00] VITALS: BP 133/65; PULSE 79; RESP 16; TEMP 36.1; O2SAT 97
[2025-01-19 07:28] VITALS: BP 120/66; PULSE 68; RESP 19; TEMP 36.1; O2SAT 99
[2025-01-19] MEDS: methADONE HCl 20 MG/2 ML ORAL.CONC 90 MG PO (08:09)
[2025-01-19] MEDS: Nicotine 21 MG PATCH.TD24 TRANSDERMA (08:20)
--- NOTE | 2025-01-19 09:53 | P.PNPSI_ITS ---
Subjective Subjective Date of Service: 01/19/25 Reason For Visit: F25. F14.20, F11.20 Subjective Notes: Conditional Voluntary Interim History: Active on unit. Patient reports she always feels anxious and depressed but believes she is starting to improve. per nursing, slept 7 hours. less sedated today. patient reports she plans on attending groups today. denies SI/HI/VH/AH. focused on going to a CSS. Medication Compliance: Yes Side effects from medications: No Attending Groups: Intermittent Mental Status Exam Mental Status Exam Narrative: Pt is alert and oriented; behavior is cooperative and calm; dressed in casual attire; mood is described as anxious and depressed ; eye contact appropriate; Speech is normal rate, volume and not pressured; thought process is organized and goal directed; Thought content is on tx; denies SI/HI/AH/VH. Diagnostics Vital Signs (24Hr): Vital Signs - 24 hr 01/18/25 15:01 01/18/25 21:00 01/19/25 07:28 Temperature 97.0 F 96.9 F Pulse Rate 79 68 Respiratory Rate 16 19 Blood Pressure 128/61 133/65 120/66 Pulse Oximetry 97 99 Oxygen Delivery Method Room Air Room Air BMI result Body Mass Index 28.4 Labs 01/14/25 07:36 Medications Medications Current Medications Acetaminophen (Acetaminophen 325 Mg Tablet) 650 mg PO Q6H PRN PRN Reason: Headache/Pain, Scale 1-10 Al Hydroxide/Mg Hydroxide (Magnesium Hydrox/Alum Hydrox 30 Ml Oral.Susp) 30 ml PO Q6H PRN PRN Reason: Heartburn/Nausea Clonazepam (Clonazepam 1 Mg Tablet) 1 mg PO BEDTIME DANE Last Admin: 01/18/25 21:05 Dose: 1 mg Clonazepam (Clonazepam 0.5 Mg Tablet) 0.5 mg PO DAILY DANE Last Admin: 01/19/25 08:20 Dose: 0.5 mg Clonidine HCl (Clonidine Hcl 0.1 Mg Tablet) 0.1 mg PO TID DANE; Protocol Last Admin: 01/19/25 08:20 Dose: 0.1 mg Gabapentin (Gabapentin 600 Mg Tablet) 600 mg PO TID DANE Last Admin: 01/19/25 08:21 Dose: 600 mg Hydroxyzine HCl (Hydroxyzine Hcl 50 Mg Tablet) 50 mg PO Q8H PRN PRN Reason: mild anxiety Last Admin: 01/17/25 12:36 Dose: 50 mg Magnesium Hydroxide (Milk Of Magnesia 30 Ml Oral.Susp) 30 ml PO DAILY PRN PRN Reason: Constipation Methadone HCl (Methadone Hcl 20 Mg/2 Ml Oral.Conc) 90 mg PO DAILY@0800 [facility] Last Admin: 01/19/25 08:09 Dose: 90 mg Naloxone HCl (Naloxone Hcl Nasal 4 Mg [place]) 4 mg NOSTRILALT ONCE PRN PRN Reason: opiate overdose Nicotine (Nicotine 21 Mg Patch.Td24) 21 mg TRANSDERMA DAILY [facility] Last Admin: 01/19/25 08:20 Dose: 21 mg Nicotine Polacrilex (Nicotine Polacrilex 2 Mg Gum) 4 mg BUCCAL Q2H PRN PRN Reason: Nicotine Cravings Last Admin: 01/19/25 08:45 Dose: 4 mg Olanzapine (Olanzapine 10 Mg Tablet) 30 mg PO BEDTIME [facility] Last Admin: 01/18/25 21:05 Dose: 30 mg Quetiapine Fumarate (Quetiapine Fumarate 25 Mg Tablet) 75 mg PO Q6H PRN PRN Reason: anxiety Last Admin: 01/18/25 03:24 Dose: 75 mg Trazodone HCl (Trazodone Hcl 50 Mg Tablet) 50 mg PO BEDTIME MRX1 PRN PRN Reason: Sleep Allergies Allergies Allergy/AdvReac Type Severity Reaction Status Date / Time Sulfa (Sulfonamide Allergy Unknown Unknown Verified 12/13/24 18:42 Antibiotics) Assessment & Plan Assessment & Plan (1) Schizoaffective disorder, depressive type: Status: Acute Code(s): F25.1 - Schizoaffective disorder, depressive type (2) PTSD (post-traumatic stress disorder): Status: Acute Code(s): F43.10 - Post-traumatic stress disorder, unspecified (3) Cocaine use disorder: Status: Acute Code(s): F14.10 - Cocaine abuse, uncomplicated (4) Opioid use disorder: Status: Acute Code(s): F11.90 - Opioid use, unspecified, uncomplicated (5) Homelessness: Status: Acute Code(s): Z59.00 - Homelessness unspecified Plan Patient is a 34-year-old female with history of schizoaffective disorder, PTSD, opiate use disorder and cocaine use disorder, who presented to ER due to suicidal ideation secondary to medication noncompliance, substance use and paranoid delusions. Plan: CV 15 minute safety checks Continue home medications Obtain collateral Encourage groups Referral to outpatient psychiatric providers Referral to CSS Discharge planning 01/15: remains psychotic, distressed at paranoid delusions. agrees to increase HS zyprexa from 10 mg to 30 mg as of tonight. 01/16: sedated, nodding off. no complaints or requests to MD. continue current mgmt. 01/17: nodding off again this morning. morning klonopin decreased from 1 mg to 0.5 mg as of tomorrow. less microchip talk, seemingly. asking for CSS referral. 01/18: Keeping to self. Patient reports feeling anxious and depressed ; pt stated, I'm thinking about how I wasted my life with 2 different guys . per nursing, slept 8 hours. appears sedated during conversation, nodding off at times. Gabapentin decreased to 600mg PO TID. pt denies SI/HI/VH/AH. Encouraged to attend groups. 01/19: Active on unit. Patient reports she always feels anxious and depressed but believes she is starting to improve. per nursing, slept 7 hours. less sedated today. patient reports she plans on attending groups today. denies SI/HI/VH/AH. focused on going to a CSS. Patient educated on: diagnosis, medication risk/benefits and therapeutic strategies Reason for continued inpatient stay Substantial Risk for: med/psych decompensation Time Spent With Patient Time: Total time managing care of this patient today _20___ minutes.
[2025-01-19 15:17] VITALS: BP 113/61
[2025-01-19 20:16] VITALS: BP 120/61; PULSE 90; RESP 16; TEMP 36.1; O2SAT 97
[2025-01-20 07:25] VITALS: BP 114/55; PULSE 79; RESP 14; TEMP 36.7; O2SAT 97
[2025-01-20] MEDS: methADONE HCl 20 MG/2 ML ORAL.CONC 90 MG PO (07:49)
[2025-01-20] MEDS: Nicotine 21 MG PATCH.TD24 TRANSDERMA (08:27)
--- NOTE | 2025-01-20 13:55 | P.PNPSI_ITS ---
Subjective Subjective Date of Service: 01/20/25 Reason For Visit: F25. F14.20, F11.20 Subjective Notes: Conditional Voluntary Interim History: Attending groups. Patient continues to report feeling depressed d/t losing the love of my life . Presents more alert today. denies SI/HI/VH/AH. Per foster care social worker, pt has a phone intake today with program. Pt reports if she is not accepted to a program she will go to a fdc. per nursing, slept 8 hours. Continue current tx plan. Medication Compliance: Yes Side effects from medications: No Attending Groups: Yes Mental Status Exam Mental Status Exam Narrative: Pt is alert and oriented; behavior is cooperative and calm; dressed in casual attire; mood is described as depressed ; eye contact appropriate; Speech is normal rate, volume and not pressured; thought process is organized and goal directed; Thought content is on tx; denies SI/HI/AH/VH. Diagnostics Vital Signs (24Hr): Vital Signs - 24 hr 01/19/25 15:17 01/19/25 20:16 01/20/25 07:25 Temperature 97.0 F 98.0 F Pulse Rate 90 79 Respiratory Rate 16 14 Blood Pressure 113/61 120/61 114/55 L Pulse Oximetry 97 97 Oxygen Delivery Method Room Air Room Air BMI result Body Mass Index 28.4 Labs 01/14/25 07:36 Medications Medications Current Medications Acetaminophen (Acetaminophen 325 Mg Tablet) 650 mg PO Q6H PRN PRN Reason: Headache/Pain, Scale 1-10 Al Hydroxide/Mg Hydroxide (Magnesium Hydrox/Alum Hydrox 30 Ml Oral.Susp) 30 ml PO Q6H PRN PRN Reason: Heartburn/Nausea Clonazepam (Clonazepam 1 Mg Tablet) 1 mg PO BEDTIME DANE Last Admin: 01/19/25 21:02 Dose: 1 mg Clonazepam (Clonazepam 0.5 Mg Tablet) 0.5 mg PO DAILY DANE Last Admin: 01/20/25 08:26 Dose: 0.5 mg Clonidine HCl (Clonidine Hcl 0.1 Mg Tablet) 0.1 mg PO TID DANE; Protocol Last Admin: 01/20/25 08:26 Dose: 0.1 mg Gabapentin (Gabapentin 600 Mg Tablet) 600 mg PO TID DANE Last Admin: 01/20/25 08:26 Dose: 600 mg Hydroxyzine HCl (Hydroxyzine Hcl 50 Mg Tablet) 50 mg PO Q8H PRN PRN Reason: mild anxiety Last Admin: 01/17/25 12:36 Dose: 50 mg Magnesium Hydroxide (Milk Of Magnesia 30 Ml Oral.Susp) 30 ml PO DAILY PRN PRN Reason: Constipation Methadone HCl (Methadone Hcl 20 Mg/2 Ml Oral.Conc) 90 mg PO DAILY@0800 [facility] Last Admin: 01/20/25 07:49 Dose: 90 mg Naloxone HCl (Naloxone Hcl Nasal 4 Mg [place]) 4 mg NOSTRILALT ONCE PRN PRN Reason: opiate overdose Nicotine (Nicotine 21 Mg Patch.Td24) 21 mg TRANSDERMA DAILY [facility] Last Admin: 01/20/25 08:27 Dose: 21 mg Nicotine Polacrilex (Nicotine Polacrilex 2 Mg Gum) 4 mg BUCCAL Q2H PRN PRN Reason: Nicotine Cravings Last Admin: 01/20/25 11:33 Dose: 4 mg Olanzapine (Olanzapine 10 Mg Tablet) 30 mg PO BEDTIME [facility] Last Admin: 01/19/25 21:02 Dose: 30 mg Quetiapine Fumarate (Quetiapine Fumarate 25 Mg Tablet) 75 mg PO Q6H PRN PRN Reason: anxiety Last Admin: 01/20/25 09:37 Dose: 75 mg Trazodone HCl (Trazodone Hcl 50 Mg Tablet) 50 mg PO BEDTIME MRX1 PRN PRN Reason: Sleep Allergies Allergies Allergy/AdvReac Type Severity Reaction Status Date / Time Sulfa (Sulfonamide Allergy Unknown Unknown Verified 12/13/24 18:42 Antibiotics) Assessment & Plan Assessment & Plan (1) Schizoaffective disorder, depressive type: Status: Acute Code(s): F25.1 - Schizoaffective disorder, depressive type (2) PTSD (post-traumatic stress disorder): Status: Acute Code(s): F43.10 - Post-traumatic stress disorder, unspecified (3) Cocaine use disorder: Status: Acute Code(s): F14.10 - Cocaine abuse, uncomplicated (4) Opioid use disorder: Status: Acute Code(s): F11.90 - Opioid use, unspecified, uncomplicated (5) Homelessness: Status: Acute Code(s): Z59.00 - Homelessness unspecified Plan Patient is a 34-year-old female with history of schizoaffective disorder, PTSD, opiate use disorder and cocaine use disorder, who presented to ER due to suicidal ideation secondary to medication noncompliance, substance use and paranoid delusions. Plan: CV 15 minute safety checks Continue home medications Obtain collateral Encourage groups Referral to outpatient psychiatric providers Referral to CSS Discharge planning 01/15: remains psychotic, distressed at paranoid delusions. agrees to increase HS zyprexa from 10 mg to 30 mg as of tonight. 01/16: sedated, nodding off. no complaints or requests to MD. continue current mgmt. 01/17: nodding off again this morning. morning klonopin decreased from 1 mg to 0.5 mg as of tomorrow. less microchip talk, seemingly. asking for CSS referral. 01/18: Keeping to self. Patient reports feeling anxious and depressed ; pt stated, I'm thinking about how I wasted my life with 2 different guys . per nursing, slept 8 hours. appears sedated during conversation, nodding off at times. Gabapentin decreased to 600mg PO TID. pt denies SI/HI/VH/AH. Encouraged to attend groups. 01/19: Active on unit. Patient reports she always feels anxious and depressed but believes she is starting to improve. per nursing, slept 7 hours. less sedated today. patient reports she plans on attending groups today. denies SI/HI/VH/AH. focused on going to a CSS. 01/20: Attending groups. Patient continues to report feeling depressed d/t losing the love of my life . Presents more alert today. denies SI/HI/VH/AH. Per foster care social worker, pt has a phone intake today with program. Pt reports if she is not accepted to a program she will go to a fdc. per nursing, slept 8 hours. Continue current tx plan. Patient educated on: diagnosis, medication risk/benefits and therapeutic strategies Reason for continued inpatient stay Substantial Risk for: med/psych decompensation Time Spent With Patient Time: Total time managing care of this patient today _20___ minutes.
[2025-01-20 14:58] VITALS: BP 116/61
[2025-01-20 19:20] VITALS: BP 133/64; PULSE 86; RESP 16; TEMP 36.9; O2SAT 98
[2025-01-21 07:00] VITALS: BMI 31.5
[2025-01-21 07:43] VITALS: BP 132/71; PULSE 78; RESP 16; TEMP 36.4; O2SAT 99
[2025-01-21] MEDS: methADONE HCl 20 MG/2 ML ORAL.CONC 90 MG PO (07:54)
[2025-01-21] MEDS: Nicotine 21 MG PATCH.TD24 TRANSDERMA (08:27)
--- NOTE | 2025-01-21 12:39 | P.PNPSI_ITS ---
Subjective Subjective Date of Service: 01/21/25 Reason For Visit: F25. F14.20, F11.20 Subjective Notes: Conditional Voluntary Interim History: Active on unit. attending groups. Patient continues to report feeling depressed but is happy I'm going to a program on Saturday . denies SI/HI/VH/AH. per nursing, slept 6 hours. Continue current tx plan. Medication Compliance: Yes Side effects from medications: No Attending Groups: Yes Mental Status Exam Mental Status Exam Narrative: Pt is alert and oriented; behavior is cooperative and calm; dressed in casual attire; mood is described as depressed ; eye contact appropriate; Speech is normal rate, volume and not pressured; thought process is organized and goal directed; Thought content is on tx; denies SI/HI/AH/VH. Diagnostics Vital Signs (24Hr): Vital Signs - 24 hr 01/20/25 14:58 01/20/25 19:20 01/21/25 07:43 Temperature 98.5 F 97.6 F Pulse Rate 86 78 Respiratory Rate 16 16 Blood Pressure 116/61 133/64 132/71 Pulse Oximetry 98 99 Oxygen Delivery Method Room Air Room Air BMI result Body Mass Index 31.5 Labs 01/14/25 07:36 Medications Medications Current Medications Acetaminophen (Acetaminophen 325 Mg Tablet) 650 mg PO Q6H PRN PRN Reason: Headache/Pain, Scale 1-10 Al Hydroxide/Mg Hydroxide (Magnesium Hydrox/Alum Hydrox 30 Ml Oral.Susp) 30 ml PO Q6H PRN PRN Reason: Heartburn/Nausea Clonazepam (Clonazepam 1 Mg Tablet) 1 mg PO BEDTIME [facility] Last Admin: 01/20/25 20:41 Dose: 1 mg Clonazepam (Clonazepam 0.5 Mg Tablet) 0.5 mg PO DAILY [facility] Last Admin: 01/21/25 08:26 Dose: 0.5 mg Clonidine HCl (Clonidine Hcl 0.1 Mg Tablet) 0.1 mg PO TID [facility]; Protocol Last Admin: 01/21/25 08:26 Dose: 0.1 mg Gabapentin (Gabapentin 600 Mg Tablet) 600 mg PO TID DANE Last Admin: 01/21/25 08:26 Dose: 600 mg Hydroxyzine HCl (Hydroxyzine Hcl 50 Mg Tablet) 50 mg PO Q8H PRN PRN Reason: mild anxiety Last Admin: 01/17/25 12:36 Dose: 50 mg Magnesium Hydroxide (Milk Of Magnesia 30 Ml Oral.Susp) 30 ml PO DAILY PRN PRN Reason: Constipation Methadone HCl (Methadone Hcl 20 Mg/2 Ml Oral.Conc) 90 mg PO DAILY@0800 [facility] Last Admin: 01/21/25 07:54 Dose: 90 mg Naloxone HCl (Naloxone Hcl Nasal 4 Mg [place]) 4 mg NOSTRILALT ONCE PRN PRN Reason: opiate overdose Nicotine (Nicotine 21 Mg Patch.Td24) 21 mg TRANSDERMA DAILY [facility] Last Admin: 01/21/25 08:27 Dose: 21 mg Nicotine Polacrilex (Nicotine Polacrilex 2 Mg Gum) 4 mg BUCCAL Q2H PRN PRN Reason: Nicotine Cravings Last Admin: 01/21/25 10:38 Dose: 4 mg Olanzapine (Olanzapine 10 Mg Tablet) 30 mg PO BEDTIME [facility] Last Admin: 01/20/25 20:42 Dose: 30 mg Quetiapine Fumarate (Quetiapine Fumarate 25 Mg Tablet) 75 mg PO Q6H PRN PRN Reason: anxiety Last Admin: 01/20/25 09:37 Dose: 75 mg Trazodone HCl (Trazodone Hcl 50 Mg Tablet) 50 mg PO BEDTIME MRX1 PRN PRN Reason: Sleep Allergies Allergies Allergy/AdvReac Type Severity Reaction Status Date / Time Sulfa (Sulfonamide Allergy Unknown Unknown Verified 12/13/24 18:42 Antibiotics) Assessment & Plan Assessment & Plan (1) Schizoaffective disorder, depressive type: Status: Acute Code(s): F25.1 - Schizoaffective disorder, depressive type (2) PTSD (post-traumatic stress disorder): Status: Acute Code(s): F43.10 - Post-traumatic stress disorder, unspecified (3) Cocaine use disorder: Status: Acute Code(s): F14.10 - Cocaine abuse, uncomplicated (4) Opioid use disorder: Status: Acute Code(s): F11.90 - Opioid use, unspecified, uncomplicated (5) Homelessness: Status: Acute Code(s): Z59.00 - Homelessness unspecified Plan Patient is a 34-year-old female with history of schizoaffective disorder, PTSD, opiate use disorder and cocaine use disorder, who presented to ER due to suicidal ideation secondary to medication noncompliance, substance use and paranoid delusions. Plan: CV 15 minute safety checks Continue home medications Obtain collateral Encourage groups Referral to outpatient psychiatric providers Referral to [facility] Discharge planning 01/15: remains psychotic, distressed at paranoid delusions. agrees to increase HS zyprexa from 10 mg to 30 mg as of tonight. 01/16: sedated, nodding off. no complaints or requests to MD. continue current mgmt. 01/17: nodding off again this morning. morning klonopin decreased from 1 mg to 0.5 mg as of tomorrow. less microchip talk, seemingly. asking for [facility] referral. 01/18: Keeping to self. Patient reports feeling anxious and depressed ; pt stated, I'm thinking about how I wasted my life with 2 different guys . per nursing, slept 8 hours. appears sedated during conversation, nodding off at times. Gabapentin decreased to 600mg PO TID. pt denies SI/HI/VH/AH. Encouraged to attend groups. 01/19: Active on unit. Patient reports she always feels anxious and depressed but believes she is starting to improve. per nursing, slept 7 hours. less sedated today. patient reports she plans on attending groups today. denies SI/HI/VH/AH. focused on going to a [facility]. 01/20: Attending groups. Patient continues to report feeling depressed d/t losing the love of my life . Presents more alert today. denies SI/HI/VH/AH. Per social welfare clerk, pt has a phone intake today with program. Pt reports if she is not accepted to a program she will go to a halfway. per nursing, slept 8 hours. Continue current tx plan. 01/21: Active on unit. attending groups. Patient continues to report feeling depressed but is happy I'm going to a program on Saturday . denies SI/HI/VH/AH. per nursing, slept 6 hours. Continue current tx plan. Patient educated on: diagnosis and medication risk/benefits Reason for continued inpatient stay Substantial Risk for: med/psych decompensation Time Spent With Patient Time: Total time managing care of this patient today _20___ minutes.
[2025-01-21 15:30] VITALS: BP 119/60
[2025-01-21 19:45] VITALS: BP 126/60; PULSE 81; RESP 18; TEMP 36.6; O2SAT 98
[2025-01-22 07:20] VITALS: BP 108/53; PULSE 83; RESP 18; TEMP 36.6; O2SAT 98
[2025-01-22] MEDS: methADONE HCl 20 MG/2 ML ORAL.CONC 90 MG PO (08:30)
[2025-01-22] MEDS: Nicotine 21 MG PATCH.TD24 TRANSDERMA (08:31)
[2025-01-22 08:32] VITALS: BP 106/55
--- NOTE | 2025-01-22 08:49 | P.PNPSI_ITS ---
Subjective Subjective Date of Service: 01/22/25 Reason For Visit: F25. F14.20, F11.20 Subjective Notes: Conditional Voluntary Interim History: Patient reports feeling sad today d/t missing my ex and he won't give me the time of day . discussed going to program on Saturday; pt reports she feels ready. denies SI/HI/VH/AH. Continue current tx plan. Medication Compliance: Yes Side effects from medications: No Attending Groups: Yes Mental Status Exam Mental Status Exam Narrative: Pt is alert and oriented; behavior is cooperative and calm; dressed in casual attire; mood is described as depressed ; eye contact appropriate; Speech is normal rate, volume and not pressured; thought process is organized and goal directed; Thought content is on tx; denies SI/HI/AH/VH. Diagnostics Vital Signs (24Hr): Vital Signs - 24 hr 01/21/25 15:30 01/21/25 19:45 01/22/25 07:20 Temperature 97.9 F 97.9 F Pulse Rate 81 83 Respiratory Rate 18 18 Blood Pressure 119/60 126/60 108/53 L Pulse Oximetry 98 98 Oxygen Delivery Method Room Air Room Air 01/22/25 08:32 Temperature Pulse Rate Respiratory Rate Blood Pressure 106/55 L Pulse Oximetry Oxygen Delivery Method BMI result Body Mass Index 31.5 Labs 01/14/25 07:36 Medications Medications Current Medications Acetaminophen (Acetaminophen 325 Mg Tablet) 650 mg PO Q6H PRN PRN Reason: Headache/Pain, Scale 1-10 Al Hydroxide/Mg Hydroxide (Magnesium Hydrox/Alum Hydrox 30 Ml Oral.Susp) 30 ml PO Q6H PRN PRN Reason: Heartburn/Nausea Clonazepam (Clonazepam 1 Mg Tablet) 1 mg PO BEDTIME [facility] Last Admin: 01/21/25 20:59 Dose: 1 mg Clonazepam (Clonazepam 0.5 Mg Tablet) 0.5 mg PO DAILY [facility] Last Admin: 01/22/25 08:32 Dose: 0.5 mg Clonidine HCl (Clonidine Hcl 0.1 Mg Tablet) 0.1 mg PO TID [facility]; Protocol Last Admin: 01/22/25 08:32 Dose: 0.1 mg Gabapentin (Gabapentin 600 Mg Tablet) 600 mg PO TID DANE Last Admin: 01/22/25 08:32 Dose: 600 mg Hydroxyzine HCl (Hydroxyzine Hcl 50 Mg Tablet) 50 mg PO Q8H PRN PRN Reason: mild anxiety Last Admin: 01/17/25 12:36 Dose: 50 mg Magnesium Hydroxide (Milk Of Magnesia 30 Ml Oral.Susp) 30 ml PO DAILY PRN PRN Reason: Constipation Methadone HCl (Methadone Hcl 20 Mg/2 Ml Oral.Conc) 90 mg PO DAILY@0800 [facility] Last Admin: 01/22/25 08:30 Dose: 90 mg Naloxone HCl (Naloxone Hcl Nasal 4 Mg [place]) 4 mg NOSTRILALT ONCE PRN PRN Reason: opiate overdose Nicotine (Nicotine 21 Mg Patch.Td24) 21 mg TRANSDERMA DAILY [facility] Last Admin: 01/22/25 08:31 Dose: 21 mg Nicotine Polacrilex (Nicotine Polacrilex 2 Mg Gum) 4 mg BUCCAL Q2H PRN PRN Reason: Nicotine Cravings Last Admin: 01/21/25 20:58 Dose: 4 mg Olanzapine (Olanzapine 10 Mg Tablet) 30 mg PO BEDTIME [facility] Last Admin: 01/21/25 20:59 Dose: 30 mg Quetiapine Fumarate (Quetiapine Fumarate 25 Mg Tablet) 75 mg PO Q6H PRN PRN Reason: anxiety Last Admin: 01/21/25 20:59 Dose: 75 mg Trazodone HCl (Trazodone Hcl 50 Mg Tablet) 50 mg PO BEDTIME MRX1 PRN PRN Reason: Sleep Allergies Allergies Allergy/AdvReac Type Severity Reaction Status Date / Time Sulfa (Sulfonamide Allergy Unknown Unknown Verified 12/13/24 18:42 Antibiotics) Assessment & Plan Assessment & Plan (1) Schizoaffective disorder, depressive type: Status: Acute Code(s): F25.1 - Schizoaffective disorder, depressive type (2) PTSD (post-traumatic stress disorder): Status: Acute Code(s): F43.10 - Post-traumatic stress disorder, unspecified (3) Cocaine use disorder: Status: Acute Code(s): F14.10 - Cocaine abuse, uncomplicated (4) Opioid use disorder: Status: Acute Code(s): F11.90 - Opioid use, unspecified, uncomplicated (5) Homelessness: Status: Acute Code(s): Z59.00 - Homelessness unspecified Plan Patient is a 34-year-old female with history of schizoaffective disorder, PTSD, opiate use disorder and cocaine use disorder, who presented to ER due to suicidal ideation secondary to medication noncompliance, substance use and paranoid delusions. Plan: CV 15 minute safety checks Continue home medications Obtain collateral Encourage groups Referral to outpatient psychiatric providers Referral to [facility] Discharge planning 01/15: remains psychotic, distressed at paranoid delusions. agrees to increase HS zyprexa from 10 mg to 30 mg as of tonight. 01/16: sedated, nodding off. no complaints or requests to MD. continue current mgmt. 01/17: nodding off again this morning. morning klonopin decreased from 1 mg to 0.5 mg as of tomorrow. less microchip talk, seemingly. asking for [facility] referral. 01/18: Keeping to self. Patient reports feeling anxious and depressed ; pt stated, I'm thinking about how I wasted my life with 2 different guys . per nursing, slept 8 hours. appears sedated during conversation, nodding off at times. Gabapentin decreased to 600mg PO TID. pt denies SI/HI/VH/AH. Encouraged to attend groups. 01/19: Active on unit. Patient reports she always feels anxious and depressed but believes she is starting to improve. per nursing, slept 7 hours. less sedated today. patient reports she plans on attending groups today. denies SI/HI/VH/AH. focused on going to a [facility]. 01/20: Attending groups. Patient continues to report feeling depressed d/t losing the love of my life . Presents more alert today. denies SI/HI/VH/AH. Per rn social services, pt has a phone intake today with program. Pt reports if she is not accepted to a program she will go to a [facility]. per nursing, slept 8 hours. Continue current tx plan. 01/21: Active on unit. attending groups. Patient continues to report feeling depressed but is happy I'm going to a program on Saturday . denies SI/HI/VH/AH. per nursing, slept 6 hours. Continue current tx plan. 01/22: Patient reports feeling sad today d/t missing my ex and he won't give me the time of day . discussed going to program on Saturday; pt reports she feels ready. denies SI/HI/VH/AH. Continue current tx plan. Patient educated on: diagnosis, medication risk/benefits and therapeutic strategies Reason for continued inpatient stay Substantial Risk for: med/psych decompensation Time Spent With Patient Time: Total time managing care of this patient today _20___ minutes.
[2025-01-22 14:20] VITALS: BP 119/58
[2025-01-22 19:44] VITALS: BP 99/51; PULSE 85; RESP 16; TEMP 36.9; O2SAT 98
[2025-01-22 20:22] VITALS: BP 145/68
[2025-01-22] MEDS: Throat Lozenge, Medicated LOZENGE 1 LOZENGE MUCOUS MEM (22:27)
[2025-01-23 08:00] VITALS: BP 117/65; PULSE 73; RESP 18; TEMP 36.4; O2SAT 98
[2025-01-23] MEDS: methADONE HCl 20 MG/2 ML ORAL.CONC 90 MG PO (08:11)
[2025-01-23] MEDS: Nicotine 21 MG PATCH.TD24 TRANSDERMA (08:13)
[2025-01-23 15:37] VITALS: BP 122/60
[2025-01-23 20:00] VITALS: BP 124/76; PULSE 80; RESP 16; TEMP 36.9; O2SAT 98
[2025-01-23 20:28] VITALS: BP 124/76
--- NOTE | 2025-01-23 21:32 | P.PNPSI_ITS ---
Subjective Subjective Date of Service: 01/23/25 Reason For Visit: F25. F14.20, F11.20 Subjective Notes: Conditional Voluntary Healthcare Proxy: No Guardianship: No Medical Problems Affecting Mental Status: No Interim History: Medical record and nursing notes reviewed; case discussed during rounds with team/nursing staff, and met with patient for supportive therapy/psychoeducation, as well as medication management. Per chart review, patient was medication compliant, slept for 6 hours. Mood is alright . However also reports anxious and depressed. Expressed that I feel it right away when medication was titrate down on Klonopin and gabapentin. . Reported that she takes Seroquel but it makes her eating too much and she does not like it. And hydroxyzine is not helpful. She asked if we can start her on metformin for weight management. Educate on healthy diet choices and active lifestyle to counteract with a gain weight as a side effect. She understand that she will be discharged on Saturday. There will be not enough time to manage metformin start here. She is receptive with the plan. Denies other safety concerns. Medication Compliance: Yes Side effects from medications: Yes (Reports increase appetite on p.r.n. Seroquel. ) Attending Groups: Yes Review of Systems Acute medical concerns: No Medical Review of Systems: unchanged Review of Systems Constitutional: Denies body ache(s), Denies chills, Denies fatigue, Denies fever(s) and Denies headache(s) Eyes: Denies change in vision Denies headache(s), Denies nasal congestion and Denies sore throat Cardiovascular: Denies chest pain, Denies rapid heart rate, Denies leg edema, Denies lightheadedness and Denies dyspnea Respiratory: Denies chest congestion, Denies cough, Denies dyspnea and Denies wheezing Gastrointestinal: Denies abdominal pain, Denies diarrhea, Denies nausea and Denies vomiting Genitourinary: Denies dysuria and Denies urinary urgency Musculoskeletal: Denies back pain and Denies myalgias Skin/Breast: Denies rash Denies confusion and Denies headache(s) Psychiatric: Reports as per HPI and Denies confusion Endocrine: Denies fatigue Hematologic/Lymphatic: Denies easy bleeding and Denies easy bruising Allergic/Immunologic: Denies wheezing Mental Status Exam Mental Status Exam Narrative: Pt is alert and oriented; behavior is cooperative and calm; dressed in casual attire; mood is described as anxious and depressed due to gabapentin and Klonopin was titrated down; eye contact appropriate; Speech is normal rate, volume and not pressured; thought process is organized and goal directed; Thought content is on tx; denies SI/HI/AH/VH. Diagnostics Vital Signs (24Hr): Vital Signs - 24 hr 01/23/25 08:00 01/23/25 15:37 01/23/25 20:00 Temperature 97.5 F 98.4 F Pulse Rate 73 80 Respiratory Rate 18 16 Blood Pressure 117/65 122/60 124/76 Pulse Oximetry 98 98 Oxygen Delivery Method Room Air Room Air 01/23/25 20:28 Temperature Pulse Rate Respiratory Rate Blood Pressure 124/76 Pulse Oximetry Oxygen Delivery Method BMI result Body Mass Index 31.5 Labs 01/14/25 07:36 Medications Medications Current Medications Acetaminophen (Acetaminophen 325 Mg Tablet) 650 mg PO Q6H PRN PRN Reason: Headache/Pain, Scale 1-10 Al Hydroxide/Mg Hydroxide (Magnesium Hydrox/Alum Hydrox 30 Ml Oral.Susp) 30 ml PO Q6H PRN PRN Reason: Heartburn/Nausea Benzocaine (Throat Lozenge, Medicated Lozenge) 1 lozenge MUCOUS MEM Q2H PRN PRN Reason: Sore Throat Last Admin: 01/22/25 22:27 Dose: 1 lozenge Clonazepam (Clonazepam 1 Mg Tablet) 1 mg PO BEDTIME [facility] Last Admin: 01/23/25 20:28 Dose: 1 mg Clonazepam (Clonazepam 0.5 Mg Tablet) 0.5 mg PO DAILY [facility] Last Admin: 01/23/25 08:14 Dose: 0.5 mg Clonidine HCl (Clonidine Hcl 0.1 Mg Tablet) 0.1 mg PO TID [facility]; Protocol Last Admin: 01/23/25 20:28 Dose: 0.1 mg Gabapentin (Gabapentin 600 Mg Tablet) 600 mg PO TID [facility]EN Last Admin: 01/23/25 20:28 Dose: 600 mg Hydroxyzine HCl (Hydroxyzine Hcl 50 Mg Tablet) 50 mg PO Q8H PRN PRN Reason: mild anxiety Last Admin: 01/23/25 10:22 Dose: 50 mg Magnesium Hydroxide (Milk Of Magnesia 30 Ml Oral.Susp) 30 ml PO DAILY PRN PRN Reason: Constipation Methadone HCl (Methadone Hcl 20 Mg/2 Ml Oral.Conc) 90 mg PO DAILY@0800 [facility] Last Admin: 01/23/25 08:11 Dose: 90 mg Naloxone HCl (Naloxone Hcl Nasal 4 Mg [place]) 4 mg NOSTRILALT ONCE PRN PRN Reason: opiate overdose Nicotine (Nicotine 21 Mg Patch.Td24) 21 mg TRANSDERMA DAILY [facility] Last Admin: 01/23/25 08:13 Dose: 21 mg Nicotine Polacrilex (Nicotine Polacrilex 2 Mg Gum) 4 mg BUCCAL Q2H PRN PRN Reason: Nicotine Cravings Last Admin: 01/23/25 20:30 Dose: 4 mg Olanzapine (Olanzapine 10 Mg Tablet) 30 mg PO BEDTIME [facility] Last Admin: 01/23/25 20:29 Dose: 30 mg Quetiapine Fumarate (Quetiapine Fumarate 25 Mg Tablet) 75 mg PO Q6H PRN PRN Reason: anxiety Last Admin: 01/23/25 10:22 Dose: 75 mg Trazodone HCl (Trazodone Hcl 50 Mg Tablet) 50 mg PO BEDTIME MRX1 PRN PRN Reason: Sleep Allergies Allergies Allergy/AdvReac Type Severity Reaction Status Date / Time Sulfa (Sulfonamide Allergy Unknown Unknown Verified 12/13/24 18:42 Antibiotics) Assessment & Plan Assessment & Plan (1) Schizoaffective disorder, depressive type: Status: Acute Code(s): F25.1 - Schizoaffective disorder, depressive type (2) PTSD (post-traumatic stress disorder): Status: Acute Code(s): F43.10 - Post-traumatic stress disorder, unspecified (3) Cocaine use disorder: Status: Acute Code(s): F14.10 - Cocaine abuse, uncomplicated (4) Opioid use disorder: Status: Acute Code(s): F11.90 - Opioid use, unspecified, uncomplicated (5) Homelessness: Status: Acute Code(s): Z59.00 - Homelessness unspecified Plan Patient is a 34-year-old female with history of schizoaffective disorder, PTSD, opiate use disorder and cocaine use disorder, who presented to ER due to suicidal ideation secondary to medication noncompliance, substance use and paranoid delusions. Plan: CV 15 minute safety checks Continue home medications Obtain collateral Encourage groups Referral to outpatient psychiatric providers Referral to [facility] Discharge planning 01/15: remains psychotic, distressed at paranoid delusions. agrees to increase HS zyprexa from 10 mg to 30 mg as of tonight. 01/16: sedated, nodding off. no complaints or requests to MD. continue current mgmt. 01/17: nodding off again this morning. morning klonopin decreased from 1 mg to 0.5 mg as of tomorrow. less microchip talk, seemingly. asking for [facility] referral. 01/18: Keeping to self. Patient reports feeling anxious and depressed ; pt stated, I'm thinking about how I wasted my life with 2 different guys . per nursing, slept 8 hours. appears sedated during conversation, nodding off at times. Gabapentin decreased to 600mg PO TID. pt denies SI/HI/VH/AH. Encouraged to attend groups. 01/19: Active on unit. Patient reports she always feels anxious and depressed but believes she is starting to improve. per nursing, slept 7 hours. less sedated today. patient reports she plans on attending groups today. denies SI/HI/VH/AH. focused on going to a [facility]. 01/20: Attending groups. Patient continues to report feeling depressed d/t losing the love of my life . Presents more alert today. denies SI/HI/VH/AH. Per hospital social worker, pt has a phone intake today with program. Pt reports if she is not accepted to a program she will go to a [facility]. per nursing, slept 8 hours. Continue current tx plan. 01/21: Active on unit. attending groups. Patient continues to report feeling depressed but is happy I'm going to a program on Saturday . denies SI/HI/VH/AH. per nursing, slept 6 hours. Continue current tx plan. 01/22: Patient reports feeling sad today d/t missing my ex and he won't give me the time of day . discussed going to program on Saturday; pt reports she feels ready. denies SI/HI/VH/AH. Continue current tx plan. 01/23/25: She is active, participating, reports anxiety and depression related to medication titrate down on Klonopin and gabapentin. Reports side effects of gained weight from Seroquel p.r.n. which is very low at 25 mg. It could be from Zyprexa scheduled. Good like to get metformin onboard to manage her weight. However she understand that due to being discharged soon this coming week, we will not have enough time to manage. She needs to follow-up with outpatient psychiatrist. Potential to go to [facility] on Saturday. Patient educated on: diagnosis, medication risk/benefits, substance abuse and therapeutic strategies Informed Consent: understands Reason for continued inpatient stay Substantial Risk for: med/psych decompensation Time Spent With Patient Time: Total time managing care of this patient today ____ minutes.
[2025-01-24 08:00] VITALS: BP 125/65; PULSE 90; RESP 20; TEMP 36.4; O2SAT 99
[2025-01-24] MEDS: methADONE HCl 20 MG/2 ML ORAL.CONC 90 MG PO (08:06)
[2025-01-24] MEDS: Nicotine 21 MG PATCH.TD24 TRANSDERMA (08:08)
[2025-01-24 08:09] VITALS: BP 125/65
--- NOTE | 2025-01-24 12:13 | HO.PSYCHPN ---
Subjective Subjective Date of Service: 01/24/25 Reason For Visit: F25. F14.20, F11.20 Subjective Notes: Conditional Voluntary Healthcare Proxy: No Guardianship: No Medical Problems Affecting Mental Status: No Interim History: Medical record and nursing notes reviewed; case discussed during rounds with team/nursing staff, and met with patient for supportive therapy/psychoeducation, as well as medication management. Per nursing and chart review, patient slept for 7 hours, was medication compliant. Appear to be sedated in the morning, Attended groups. Irritable upon approach but apologized right after for her behavior. Denies safety concerns. Denies anxiety and depression. Per nursing report, patient was delusional thinking does not microchip in her head. She also reports to nursing staff that she hear voices of her dad telling her to masturbate which she did reports that she touched herself. However, she feels it was not right, She then stopped doing it and start crying. f Medication Compliance: Yes Side effects from medications: No (appear to be sedated. ) Attending Groups: Yes Review of Systems Acute medical concerns: No Medical Review of Systems: unchanged Review of Systems Constitutional: Denies body ache(s), Denies chills, Denies fatigue, Denies fever(s) and Denies headache(s) Eyes: Denies change in vision Denies headache(s), Denies nasal congestion and Denies sore throat Cardiovascular: Denies chest pain, Denies rapid heart rate, Denies leg edema, Denies lightheadedness and Denies dyspnea Respiratory: Denies chest congestion, Denies cough, Denies dyspnea and Denies wheezing Gastrointestinal: Denies abdominal pain, Denies diarrhea, Denies nausea and Denies vomiting Genitourinary: Denies dysuria and Denies urinary urgency Musculoskeletal: Denies back pain and Denies myalgias Skin/Breast: Denies rash Denies confusion and Denies headache(s) Psychiatric: Reports as per HPI and Denies confusion Endocrine: Denies fatigue Hematologic/Lymphatic: Denies easy bleeding and Denies easy bruising Allergic/Immunologic: Denies wheezing Mental Status Exam Mental Status Exam Narrative: Pt is alert and oriented; behavior is cooperative and calm; dressed in casual attire; mood is described as irritable due to being taken away for assessment, eye contact appropriate; Speech is normal rate, volume and not pressured; thought process is organized and goal directed; Thought content is on tx; denies SI/HI/AH/VH.Nursing report delusions/paranoid thoughts Diagnostics Vital Signs (24Hr): Vital Signs - 24 hr 01/23/25 15:37 01/23/25 20:00 01/23/25 20:28 Temperature 98.4 F Pulse Rate 80 Respiratory Rate 16 Blood Pressure 122/60 124/76 124/76 Pulse Oximetry 98 Oxygen Delivery Method Room Air 01/24/25 08:00 01/24/25 08:09 Temperature 97.6 F Pulse Rate 90 Respiratory Rate 20 Blood Pressure 125/65 125/65 Pulse Oximetry 99 Oxygen Delivery Method Room Air BMI result Body Mass Index 31.5 Labs 01/14/25 07:36 Medications Medications Current Medications Acetaminophen (Acetaminophen 325 Mg Tablet) 650 mg PO Q6H PRN PRN Reason: Headache/Pain, Scale 1-10 Al Hydroxide/Mg Hydroxide (Magnesium Hydrox/Alum Hydrox 30 Ml Oral.Susp) 30 ml PO Q6H PRN PRN Reason: Heartburn/Nausea Benzocaine (Throat Lozenge, Medicated Lozenge) 1 lozenge MUCOUS MEM Q2H PRN PRN Reason: Sore Throat Last Admin: 01/22/25 22:27 Dose: 1 lozenge Clonazepam (Clonazepam 1 Mg Tablet) 1 mg PO BEDTIME [facility] Last Admin: 01/23/25 20:28 Dose: 1 mg Clonazepam (Clonazepam 0.5 Mg Tablet) 0.5 mg PO DAILY [facility] Last Admin: 01/24/25 08:09 Dose: 0.5 mg Clonidine HCl (Clonidine Hcl 0.1 Mg Tablet) 0.1 mg PO TID [facility]; Protocol Last Admin: 01/24/25 08:09 Dose: 0.1 mg Gabapentin (Gabapentin 600 Mg Tablet) 600 mg PO TID [facility] Last Admin: 01/24/25 08:09 Dose: 600 mg Hydroxyzine HCl (Hydroxyzine Hcl 50 Mg Tablet) 50 mg PO Q8H PRN PRN Reason: mild anxiety Last Admin: 01/24/25 08:10 Dose: 50 mg Magnesium Hydroxide (Milk Of Magnesia 30 Ml Oral.Susp) 30 ml PO DAILY PRN PRN Reason: Constipation Methadone HCl (Methadone Hcl 20 Mg/2 Ml Oral.Conc) 90 mg PO DAILY@0800 [facility] Last Admin: 01/24/25 08:06 Dose: 90 mg Naloxone HCl (Naloxone Hcl Nasal 4 Mg [place]) 4 mg NOSTRILALT ONCE PRN PRN Reason: opiate overdose Nicotine (Nicotine 21 Mg Patch.Td24) 21 mg TRANSDERMA DAILY [facility] Last Admin: 01/24/25 08:08 Dose: 21 mg Nicotine Polacrilex (Nicotine Polacrilex 2 Mg Gum) 4 mg BUCCAL Q2H PRN PRN Reason: Nicotine Cravings Last Admin: 01/24/25 11:04 Dose: 4 mg Olanzapine (Olanzapine 10 Mg Tablet) 30 mg PO BEDTIME [facility] Last Admin: 01/23/25 20:29 Dose: 30 mg Quetiapine Fumarate (Quetiapine Fumarate 25 Mg Tablet) 75 mg PO Q6H PRN PRN Reason: anxiety Last Admin: 01/24/25 08:10 Dose: 75 mg Trazodone HCl (Trazodone Hcl 50 Mg Tablet) 50 mg PO BEDTIME MRX1 PRN PRN Reason: Sleep Allergies Allergies Allergy/AdvReac Type Severity Reaction Status Date / Time Sulfa (Sulfonamide Allergy Unknown Unknown Verified 12/13/24 18:42 Antibiotics) Assessment & Plan Assessment & Plan (1) Schizoaffective disorder, depressive type: Status: Acute Code(s): F25.1 - Schizoaffective disorder, depressive type (2) PTSD (post-traumatic stress disorder): Status: Acute Code(s): F43.10 - Post-traumatic stress disorder, unspecified (3) Cocaine use disorder: Status: Acute Code(s): F14.10 - Cocaine abuse, uncomplicated (4) Opioid use disorder: Status: Acute Code(s): F11.90 - Opioid use, unspecified, uncomplicated (5) Homelessness: Status: Acute Code(s): Z59.00 - Homelessness unspecified Plan Patient is a 34-year-old female with history of schizoaffective disorder, PTSD, opiate use disorder and cocaine use disorder, who presented to ER due to suicidal ideation secondary to medication noncompliance, substance use and paranoid delusions. Plan: CV 15 minute safety checks Continue home medications Obtain collateral Encourage groups Referral to outpatient psychiatric providers Referral to [facility] Discharge planning 01/15: remains psychotic, distressed at paranoid delusions. agrees to increase HS zyprexa from 10 mg to 30 mg as of tonight. 01/16: sedated, nodding off. no complaints or requests to MD. continue current mgmt. 01/17: nodding off again this morning. morning klonopin decreased from 1 mg to 0.5 mg as of tomorrow. less microchip talk, seemingly. asking for CSS referral. 01/18: Keeping to self. Patient reports feeling anxious and depressed ; pt stated, I'm thinking about how I wasted my life with 2 different guys . per nursing, slept 8 hours. appears sedated during conversation, nodding off at times. Gabapentin decreased to 600mg PO TID. pt denies SI/HI/VH/AH. Encouraged to attend groups. 01/19: Active on unit. Patient reports she always feels anxious and depressed but believes she is starting to improve. per nursing, slept 7 hours. less sedated today. patient reports she plans on attending groups today. denies SI/HI/VH/AH. focused on going to a CSS. 01/20: Attending groups. Patient continues to report feeling depressed d/t losing the love of my life . Presents more alert today. denies SI/HI/VH/AH. Per social economist, pt has a phone intake today with program. Pt reports if she is not accepted to a program she will go to a [facility]. per nursing, slept 8 hours. Continue current tx plan. 01/21: Active on unit. attending groups. Patient continues to report feeling depressed but is happy I'm going to a program on Saturday . denies SI/HI/VH/AH. per nursing, slept 6 hours. Continue current tx plan. 01/22: Patient reports feeling sad today d/t missing my ex and he won't give me the time of day . discussed going to program on Saturday; pt reports she feels ready. denies SI/HI/VH/AH. Continue current tx plan. 01/23/25: She is active, participating, reports anxiety and depression related to medication titrate down on Klonopin and gabapentin. Reports side effects of gained weight from Seroquel p.r.n. which is very low at 25 mg. It could be from Zyprexa scheduled. Good like to get metformin onboard to manage her weight. However she understand that due to being discharged soon this coming week, we will not have enough time to manage. She needs to follow-up with outpatient psychiatrist. Potential to go to [facility] on Saturday. 01/24/25: Slept well but up a couple times l last night. She appears to be sedated in the morning, more alert in the afternoon. Attended groups. Some delusional paranoid thoughts. She thinks her eyes camera, and her brain is the computer. She reports to nursing staff but denies SI/SIB/HI/AVH during one-to-one assessment with this provider. Patient educated on: medication risk/benefits and therapeutic strategies Informed Consent: understands Reason for continued inpatient stay Substantial Risk for: med/psych decompensation Time Spent With Patient Time: Total time managing care of this patient today ____ minutes.
[2025-01-24 14:29] VITALS: BP 139/70
[2025-01-24 20:00] VITALS: PULSE 87; TEMP 36.7; O2SAT 97
[2025-01-25] MEDS: methADONE HCl 20 MG/2 ML ORAL.CONC 90 MG PO (07:58)
[2025-01-25 08:00] VITALS: BP 110/52; PULSE 89; RESP 17; TEMP 36.4; O2SAT 98
[2025-01-25] MEDS: Nicotine 21 MG PATCH.TD24 TRANSDERMA (08:24)
--- NOTE | 2025-01-25 08:44 | P.DS_ITS ---
DS: Providers Provider Date of Service: 01/25/25 Date of admission: 01/13/25 15:59 Date of discharge: 01/25/25 Primary care physician: Unknown Physician Admitting clinician: Osiris Britton Attending physician on admission: Breezy Mazariegos Consults: 01/13/25 16:12 Consult to Hospitalist Routine Comment: Consulting Provider: [facility] Reason For Exam: new admit, H&P Attending physician on discharge: Freddie Dugan Discharging clinician: Osiris Britton DS: Diagnosis Discharge Diagnosis (1) Schizoaffective disorder, depressive type: Status: Acute (2) PTSD (post-traumatic stress disorder): Status: Acute (3) Cocaine use disorder: Status: Acute (4) Opioid use disorder: Status: Acute (5) Homelessness: Status: Acute DS: Medications Discharge Medications Home Medications: Home Medications ?Medication ?Instructions ?Recorded ?Confirmed methadone 10 mg/mL oral concentrate 90 mg PO DAILY 01/13/25 Previous Rx's ?Medication ?Instructions ?Recorded naloxone 4 mg/actuation nasal 4 mg intranasal Q2M PRN opioid 12/22/24 spray (Narcan) overdose #2 ea clonazepam 0.5 mg tablet 0.5 mg PO DAILY 7 days #7 ta bs 01/22/25 clonazepam 1 mg tablet 1 mg PO BEDTIME 7 days #7 ta bs 01/22/25 clonidine HCl 0.1 mg tablet 0.1 mg PO TID 30 days #90 tabs 01/22/25 gabapentin 600 mg tablet 600 mg PO TID 30 days #90 ta bs 01/22/25 hydroxyzine HCl 50 mg tablet 50 mg PO TID PRN mild Anx iety 30 01/22/25 days #90 tabs nicotine (polacrilex) 2 mg gum 4 mg buccal Q2H PRN daisy otine 01/22/25 cravings 30 days #100 ea nicotine 21 mg/24 hr daily 21 mg transdermal DAILY PRN 01/22/25 transdermal patch smoking cessation 28 days #2 8 ea olanzapine 10 mg tablet 30 mg (3 x 10 mg) PO BEDTIME 30 01/22/25 days #90 tabs quetiapine 50 mg tablet 50 mg PO BID PRN anxiety 30 days 01/22/25 #60 tabs Mental Status Exam Mental Status Exam Narrative: Pt is alert and oriented; behavior is cooperative and calm; dressed in casual attire; mood is described as good ; eye contact appropriate; Speech is normal rate, volume and not pressured; thought process is organized and goal directed; Thought content is on discharge; denies SI/HI/AH/VH. DS: Summary Hospital Course Hospital Course: Patient is a 34-year-old female with history of schizoaffective disorder, PTSD, opiate use disorder and cocaine use disorder, who presented to ER due to suicidal ideation secondary to medication noncompliance, substance use and paran oid delusions. Per crisis report, patient presented to ER reporting she has a computer chip in her brain and needs it to be turned off . Pt reports she has been using crack cocaine. Patient reported suicidal ideation; history of attempting to jump in front of traffic. Patient reports the chip needs to be turned off in order for her to sleep . Patient reports she has not slept in days. Per documentation, patient having delusion of a computer chip in her head and hearing others talk is patient's baseline. Patient reports she recently broke up with her boyfriend and has been homeless and using crack cocaine. Utox positive for cocaine, cannabis and fentanyl. Patient reports she is sick of living this way and came to the ER instead of hurting herself. Patient reports suicidal ideation with plans to either jump in front of cars, lay on the railroad or overdose on heroin. denies HI/VH. History of self-injurious behavior via scratching herself, burning herself, and pulling her hair. History of suicide attempts via jumping in front of cars, however, she is unable to identify last attempt. During admission assessment, patient presents alert and oriented x3. Calm and cooperative. Patient reports feeling depressed; patient stated, they put a microchip in my head when I was younger to scan if I had blood clots. My father now downloaded [employer] to the chip in my head. I know it's in there and people keep lying to me about it. They also put my name on the sex offender website even though I'm not a sex offender . Patient reports suicidal ideation due to feeling alone. She reports auditory hallucinations telling her no one loves her and to harm herself . Patient does not have outpatient psychiatric providers at this time. Patient reports she has not been medication compliant since being discharged recently from on December 22 2024. Patient reports she would like a referral to a CSS and to be restarted on her home medications. She reports she is not interested in taking [place] or Depakote as she has in the past and she feels they were not beneficial. Plan: CV 15 minute safety checks Continue home medications Obtain collateral Encourage groups Referral to outpatient psychiatric providers Referral to CSS Discharge planning remains psychotic, distressed at paranoid delusions. agrees to increase HS zyprexa from 10 mg to 30 mg as of tonight. sedated, nodding off. no complaints or requests to MD. continue current mgmt. nodding off again this morning. morning klonopin decreased from 1 mg to 0.5 mg as of tomorrow. less microchip talk, seemingly. asking for CSS referral. Keeping to self. Patient reports feeling anxious and depressed ; pt stated, I'm thinking about how I wasted my life with 2 different guys . per nursing, slept 8 hours. appears sedated during conversation, nodding off at times. Gabapentin decreased to 600mg PO TID. pt denies SI/HI/VH/AH. Encouraged to attend groups. Active on unit. Patient reports she always feels anxious and depressed but believes she is starting to improve. per nursing, slept 7 hours. less sedated today. patient reports she plans on attending groups today. denies SI/HI/VH/AH. focused on going to a CSS. Attending groups. Patient continues to report feeling depressed d/t losing the love of my life . Presents more alert today. denies SI/HI/VH/AH. Per public health social worker, pt has a phone intake today with program. Pt reports if she is not accepted to a program she will go to a [facility]. per nursing, slept 8 hours. Continue current tx plan. Active on unit. attending groups. Patient continues to report feeling depressed but is happy I'm going to a program on Saturday . denies SI/HI/VH/AH. per nursing, slept 6 hours. Continue current tx plan. Patient reports feeling sad today d/t missing my ex and he won't give me the time of day . discussed going to program on Saturday; pt reports she feels ready. denies SI/HI/VH/AH. Continue current tx plan. She is active, participating, reports anxiety and depression related to medication titrate down on Klonopin and gabapentin. Reports side effects of gained weight from Seroquel p.r.n. which is very low at 25 mg. It could be from Zyprexa scheduled. Good like to get metformin onboard to manage her weight. However she understand that due to being discharged soon this coming week, we will not have enough time to manage. She needs to follow-up with outpatient psychiatrist. Potential to go to [place] on Saturday. Slept well but up a couple times l last night. She appears to be sedated in the morning, more alert in the afternoon. Attended groups. Some delusional paranoid thoughts. She thinks her eyes camera, and her brain is the computer. She reports to nursing staff but denies SI/SIB/HI/AVH during one-to-one assessment with this provider. Patient reports feeling good and ready to be discharged to program . denies SI/HI/VH/AH. Pt reports she plans on following up with her outpatient providers. Status at Discharge Cognitive/behavioral status at discharge: Patient has insight and demonstrates good judgment in terms of wanting to pursue treatment. Patient has a safety plan that includes presenting to the closest ER or calling 911 if feeling unsafe. Functional status at discharge: independent ambulation Overall status at discharge: patient is back to baseline Time Spent with Patient Time attestation: Total time managing care of this patient today __20__ minutes. Time spent: Less than 30 minutes Discharge Plan Discharge Anticipated Discharge Date/Time: 01/25/25 10:00 Patient Disposition: Home, Self-Care Discharge Diagnosis: Schizoaffective d/o, PTSD, opioid use d/o, cocaine use d/o Referrals: Therapy & Psychiatry [Other] - 1 Week Referral Note: *You can present to the clinic above, Saturday through Saturday during the hours of 8am and 8pm, in order to obtain outpatient mental health providers. [facility] [Provider Group] - 1 Week Referral Note: 01-21-25 [facility] was added to patients chart. Please call [phone] to schedule a follow up appt within 7-10 days of discharge. No release or PCP on file. Discharge Medications: New olanzapine 10 mg Tablet 30 mg PO BEDTIME 30 Days Qty: 90 0RF gabapentin 600 mg Tablet 600 mg PO TID 30 Days Qty: 90 0RF clonazepam 1 mg Tablet 1 mg PO BEDTIME 7 Days Qty: 7 3RF clonazepam 0.5 mg Tablet 0.5 mg PO DAILY 7 Days Qty: 7 3RF Continued methadone 10 mg/mL Concentrate 90 mg PO DAILY clonidine HCl 0.1 mg tablet 0.1 mg PO TID 30 Days Qty: 90 0RF nicotine (polacrilex) 2 mg Gum 4 mg buccal Q2H PRN (Reason: nicotine cravings) 30 Days Qty: 100 0RF hydroxyzine HCl 50 mg Tablet 50 mg PO TID PRN (Reason: mild Anxiety) 30 Days Qty: 90 0RF nicotine 21 mg/24 hr Patch 24 Hour 21 mg transdermal DAILY PRN (Reason: smoking cessation) 28 Days Qty: 28 0RF naloxone [Narcan] 4 mg/actuation spray,non-aerosol 4 mg intranasal Q2M PRN (Reason: opioid overdose) Qty: 2 0RF Rx Instructions: spray 1 dose into ONE nostril; alternate nostrils w each dose until help arrives Changed quetiapine 50 mg tablet 50 mg PO BID PRN (Reason: anxiety) 30 Days Qty: 60 0RF Discontinued gabapentin 800 mg tablet 800 mg PO TID multivitamin [Daily-Shwetha] Tablet 1 tab PO DAILY Qty: 30 0RF trazodone 50 mg Tablet 50 mg PO BEDTIME MRX1 PRN (Reason: Insomnia) Qty: 60 0RF clonazepam [Klonopin] 1 mg tablet 1 mg PO BID Qty: 14 4RF gabapentin 800 mg tablet 800 mg PO TID Qty: 21 4RF Discharge Orders: Discharge Order (Routine); Ordered 01/25/25 Ordered By: Osiris Britton Diet: Regular diet Activity on Discharge: As tolerated Stand Alone Forms: Patient Portal Discharge page, Community Support Print Language: Unable To Collect Care Plan Goals: Maintain mood and safe behaviors Take medications as prescribed Continue to pursue sobriety Practice coping skills Continue with outpatient providers and reach out to them as needed Health Concerns: Mood stability and behaviors Sobriety Plan of Treatment: Follow up with your PCP, psychiatric provider and other outpatient providers regarding above concerns Take medications as prescribed Assessment: Patient has insight and demonstrates good judgment in terms of wanting to pursue treatment. Patient has a safety plan that includes presenting to the closest ER or calling 911 if feeling unsafe. Discharge Date/Time: 01/25/25 10:03
[2025-01-25 09:16] VITALS: BP 110/52
== END 2025-01-25 10:03 | disposition home or self-care (01) | DRG 750 ==
PROVIDERS: Admitting Provider Psychiatry & Neurology Psychiatry; Responsible Provider Registered Nurse; Visit Provider Psychiatry & Neurology Psychiatry
DX: F25.1 Schizoaffective disorder, depressive type (principal); F11.20 Opioid dependence, uncomplicated; F14.10 Cocaine abuse, uncomplicated; F43.10 Post-traumatic stress disorder, unspecified; F19.10 Other psychoactive substance abuse, uncomplicated; Z59.02 Unsheltered homelessness; Z79.899 Other long term (current) drug therapy
CPT/HCPCS: 36415; 80053; 80061; 83036

== ENCOUNTER → 2025-01-13 15:59 | Outpatient (BNV) | payer OTHER, SELFPAY | PROVIDERS: Admitting Provider Psychiatry & Neurology Psychiatry; Responsible Provider Registered Nurse; Visit Provider Psychiatry & Neurology Psychiatry | DX: F25.1 Schizoaffective disorder, depressive type (principal); F14.10 Cocaine abuse, uncomplicated; F11.90 Opioid use, unspecified, uncomplicated; F43.11 Post-traumatic stress disorder, acute; Z59.00 Homelessness unspecified | CPT/HCPCS: 99231; 99232; 99233 ==

== ENCOUNTER → 2025-01-13 15:59 | Outpatient (BNV) | payer MEDICAID, SELFPAY | PROVIDERS: Admitting Provider Psychiatry & Neurology Psychiatry; Responsible Provider Registered Nurse; Visit Provider Physician Assistant | DX: F39 Unspecified mood [affective] disorder (principal); F14.10 Cocaine abuse, uncomplicated; F11.10 Opioid abuse, uncomplicated; F19.10 Other psychoactive substance abuse, uncomplicated | CPT/HCPCS: 99222 ==

== ENCOUNTER 2025-03-25 19:35 | Inpatient (IN) | payer OTHER, SELFPAY ==
[2025-03-25 19:55] VITALS: BP 115/65; PULSE 93; RESP 18; TEMP 36.5; O2SAT 95
[2025-03-25 22:53] VITALS: BMI 34.9
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
--- NOTE | 2025-03-26 07:40 | PC.NURSE ---
Per paperwork recieved from [facility], Eleonora received last dose of methadone 100mg on 03/25/25 at 0931 in the [facility] emergency room. Information faxed to pharmacy.
--- NOTE | 2025-03-26 07:44 | HE.PHANOTE ---
RE: METHADONE DOSING Last dose of methadone 100 mg was given on 03/25/25 @[address] [facility] per discharge paperworks.
[2025-03-26 08:00] VITALS: BP 91/47; PULSE 75; RESP 16; TEMP 36.7; O2SAT 96
[2025-03-26] MEDS: methADONE HCl 20 MG/2 ML ORAL.CONC 100 MG PO (08:33)
[2025-03-26 08:43] LABS: Hemoglobin A1C 122.0683 umol/L; Total Hemoglobin (HGBA1C) 3539.8295 umol/L
--- NOTE | 2025-03-26 08:57 | HO.PM.IMCN ---
History of Present Illness Data of Consult Service Date: 03/26/25 Primary Care Provider: None Physician HPI Reason for consult: Medical consult 34-year-old female with a past medical history of bipolar disorder brought to [facility] ED with delusions and hallucinations. On exam she is irritable and jean marie, upset with being bothered. Only states multiple times the only thing she needs is a bullet to her head . She denies any medical concerns. Review of labs revealed a mild AKA no other electrolyte derangements, LFTs and T bili stable, no leukocytosis or anemia, salicylate level Tylenol and ethanol level were negative her drug screen was positive for methadone, benzodiazepines, cocaine, cannabinoids, and fentanyl. Her test was negative. Recent A1c is 5.3. She did report using methamphetamines prior to arrival in the ED. She denies any shortness of breath, chest pain, headaches, visual changes, abdominal pain, lightheadedness, dizziness, constipation or diarrhea. Patient reports that she ate breakfast this morning and slept last evening. Review of Systems Review of Systems: Denies any shortness of breath, chest pain, dizziness, lightheadedness, abdominal pain or discomfort, nausea vomiting or diarrhea PMFSH Medical History Bipolar disorder Polysubstance abuse Social History Household Members: None Household Members Other:: Patient currently unable to participate, floridly psychotic Housing: Homeless Housing Other:: Patient currently unable to participate, floridly psychotic Do you presently have visiting nurse or other home services: No Alcohol intake: never Patient Tobacco Use Status: Current everyday Tobacco user Tobacco use type: Cigarette Cigarette Packs Per Day: 1.5 Cigarettes Per Day: 30.0 Smoked in Last 30 Days: Yes e-Cigarette/Vaping Use: Never Used Patient Interested in Nicotine Replacement: Yes Patient Given Instructions on How to Stop Smoking: Yes Date Education Initiated: 03/25/25 Second Hand Smoke Exposure: Yes Substance Use Type: Crack/Cocaine and Opiates Currently Displaying Signs/Symptoms of Drug Intoxication Withdrawal: No Have you been hit, kicked, punched, or otherwise hurt by someone within the past year? If so, by whom?: No Do you feel safe in your current relationship?: No Current Relationship Is there a partner from a previous relationship who is making you feel unsafe now?: No Are you made to feel afraid or neglected: No Advance Directives: No Advance Directives Information Provided: Yes Do you have thoughts of harming others: None Do you have a plan to hurt others: No Plan Recently lost weight without trying: No How much weight loss: Not applicable Eating poorly because of decreased appetite: No Nutrition screen score: 0 Nutrition Risks: No Nutritional Risk Patient : No : No Poor oral hygiene: No service: No Sexual orientation: Straight/Heterosexual Meds Allergies Allergy/AdvReac Type Severity Reaction Status Date / Time Sulfa (Sulfonamide Allergy Unknown Unknown Verified 12/13/24 18:42 Antibiotics) Active Medications: Current Medications Acetaminophen (Acetaminophen 325 Mg Tablet) 650 mg PO Q6H PRN PRN Reason: Headache/Pain, Scale 1-10 Al Hydroxide/Mg Hydroxide (Magnesium Hydrox/Alum Hydrox 30 Ml Oral.Susp) 30 ml PO Q6H PRN PRN Reason: Heartburn/Nausea Clonazepam (Clonazepam 1 Mg Tablet) 1 mg PO BEDTIME [facility] Last Admin: 03/25/25 22:31 Dose: 1 mg Clonazepam (Clonazepam 0.5 Mg Tablet) 0.5 mg PO DAILY [facility] Last Admin: 03/26/25 08:35 Dose: 0.5 mg Clonidine HCl (Clonidine Hcl 0.1 Mg Tablet) 0.1 mg PO BEDTIME [facility]; Protocol Last Admin: 03/25/25 22:30 Dose: 0.1 mg Gabapentin (Gabapentin 400 Mg Capsule) 800 mg PO TID [facility] Last Admin: 03/26/25 08:34 Dose: 800 mg Hydroxyzine HCl (Hydroxyzine Hcl 50 Mg Tablet) 50 mg PO TID [facility] Last Admin: 03/26/25 08:35 Dose: 50 mg Magnesium Hydroxide (Milk Of Magnesia 30 Ml Oral.Susp) 30 ml PO DAILY PRN PRN Reason: Constipation Metformin HCl (Metformin Hcl 500 Mg Tablet) 500 mg PO BEDTIME [facility] Last Admin: 03/25/25 22:30 Dose: 500 mg Methadone HCl (Methadone Hcl 20 Mg/2 Ml Oral.Conc) 100 mg PO DAILY@0800 [facility] Last Admin: 03/26/25 08:33 Dose: 100 mg Nicotine Polacrilex (Nicotine Polacrilex 2 Mg Gum) 4 mg BUCCAL Q2H PRN PRN Reason: Nicotine Cravings Olanzapine (Olanzapine 10 Mg Tablet) 10 mg PO BEDTIME [facility] Last Admin: 03/25/25 22:30 Dose: 10 mg Trazodone HCl (Trazodone Hcl 50 Mg Tablet) 50 mg PO BEDTIME MRX1 PRN PRN Reason: Insomnia Home Medications ?Medication ?Instructions ?Recorded ?Confirmed ?Last Taken ?Type clonazepam 0.5 mg tablet 0.5 mg PO QAM 03/25/25 03/25/25 Unknown History clonazepam 2 mg tablet (Klonopin) 2 mg PO BEDTIME 03/25/25 03/25/25 Unknown History clonidine HCl 0.1 mg tablet 0.1 mg PO BEDTIME 03/25/25 03/25/25 Unknown History gabapentin 800 mg tablet 800 mg PO TID 03/25/25 03/25/25 Unknown History hydroxyzine HCl 50 mg tablet 50 mg PO TID 03/25/25 03/25/25 Unknown History metformin 500 mg tablet 500 mg PO BEDTIME 03/25/25 03/25/25 Unknown History methadone 10 mg/mL oral concentrate 100 mg PO DAILY 03/25/25 03/25/25 03/25/25 10:00 History olanzapine 10 mg tablet 10 mg PO BEDTIME 03/25/25 03/25/25 Unknown History Physical Exam Vital Signs and Narrative: Vital Signs: Last Vital Signs Temp 98.1 F 03/26/25 08:00 Pulse 75 03/26/25 08:00 Resp 16 03/26/25 08:00 BP 91/47 L 03/26/25 08:00 Pulse Ox 96 03/26/25 08:00 O2 Del Method Room Air 03/26/25 08:00 BMI result Body Mass Index 34.9 CONST: Alert and oriented, in NAD. Well nourished HEENT: Normocephalic, atraumatic, MMM, Eyes clear, Neck supple RESP: Lungs clear, RRR even and regular HEART:,RRR, S1, S2. No edema GI:Abdomen Soft NT, ND. + BS times four :Deferred SKIN: Warm dry and intact, no visible lesions or rashes NEURO:CN II-XII Intact bilaterally, Sensation intact. Speech clear PSYCH: Irritable Results Labs 03/26/25 08:24 Labs: Laboratory Results - last 24 hr 03/26/25 08:25 Estimat Average Glucose 105 Hemoglobin A1c % 5.3 Assessment and Plan (1) Polysubstance abuse: Status: Acute Plan 34-year-old female with a past medical history of schizoaffective disorder depressive type, polysubstance use, bipolar disorder, presented to the [facility] ED with delusions and hallucinations. She had multiple substances on her tox screen. She is now admitted here for further care and treatment. Schizoaffective disorder/bipolar disorder/polysubstance use Treatment per psychiatric team Thank you for allowing me to participate in the care and this patient, we will sign off, notify medical provider with any changes in conditions or concerns.
[2025-03-26 09:04] LABS: Cholesterol 206 mg/dL (<200); Creatinine Clr Calc Pharmacy 85.4; Estimated Glomerular Filt Rate > 60; HDL Cholesterol 53 mg/dL (>40); Magnesium 2.1 mg/dL (1.6-2.6); Triglycerides 97 mg/dL (<150)
[2025-03-26 09:13] LABS: Free T4 (Free Thyroxine) 1.10 ng/dL (0.71-1.85); Thyroid Stimulating Hormone 1.55 uIU/mL (0.32-4.0)
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
[2025-03-26 09:24] LABS: Folate 13.3 ng/mL (> or = 4.0); Vitamin B12 365 pg/mL (200-900)
[2025-03-26 19:35] VITALS: BP 109/55; PULSE 88; RESP 16; TEMP 36.2; O2SAT 95
[2025-03-27 08:00] VITALS: BP 130/70; PULSE 83; RESP 16; TEMP 36.4; O2SAT 97
[2025-03-27] MEDS: methADONE HCl 20 MG/2 ML ORAL.CONC 100 MG PO (08:34)
--- NOTE | 2025-03-27 09:02 | P.PNPSI_ITS ---
Subjective Subjective Date of Service: 03/27/25 Reason For Visit: PTSD,polysubstance Use Disorder,Schizaffective Dis Subjective Notes: Conditional Voluntary Healthcare Proxy: No Guardianship: No Medical Problems Affecting Mental Status: No Interim History: Medical record and nursing notes reviewed; case discussed during rounds with team/nursing staff, and met with patient for supportive therapy/psychoeducation, as well as medication management. Patient slept for 8 hours, increasing in appetite, irritable regarding food and setting limit. Making threats to hurt herself and others. Labile, throw tantrum at staff, swearing at staff when set limit and redirected. Attended no groups, asked to see if she can get hard candy and have her own art supply. Refer patent back to primary team to make decision. She is passively engaged in conversation. Denies SI. Medication Compliance: Yes Side effects from medications: No Attending Groups: No Review of Systems Acute medical concerns: No Medical Review of Systems: unchanged Review of Systems Review of Systems No shortness of breath, chest pain, dizziness, lightheadedness, abdominal pain or discomfort, nausea vomiting or diarrhea Mental Status Exam Mental Status Exam Narrative: disheveled, hospital attire. variably cooperative. PMA of restlessness. speech incr amount and rate and loudness. decr latency. thoughts disorganized. affect labile. mood anxious. -SI. Making HI statement. No SIB, disorganized, demanding, irritable. Not express AVH Diagnostics Vital Signs (24Hr): Vital Signs - 24 hr 03/26/25 19:35 03/27/25 08:00 Temperature 97.2 F 97.6 F Pulse Rate 88 83 Respiratory Rate 16 16 Blood Pressure 109/55 L 130/70 Pulse Oximetry 95 97 Oxygen Delivery Method Room Air Room Air BMI result Body Mass Index 34.9 Labs 03/26/25 08:24 Labs: Laboratory Results - last 48 hr 03/26/25 03/26/25 08:24 08:25 Creatinine 0.93 Estim Creat Clear Calc 85.4 Estimated GFR > 60 Estimat Average Glucose 105 Hemoglobin A1c % 5.3 Magnesium 2.1 Triglycerides 97 Cholesterol 206 H LDL Cholesterol, Calc 134 H HDL Cholesterol 53 Vitamin B12 365 Folate 13.3 TSH 1.55 Free T4 1.10 Medications Medications Current Medications Acetaminophen (Acetaminophen 325 Mg Tablet) 650 mg PO Q6H PRN PRN Reason: Headache/Pain, Scale 1-10 Al Hydroxide/Mg Hydroxide (Magnesium Hydrox/Alum Hydrox 30 Ml Oral.Susp) 30 ml PO Q6H PRN PRN Reason: Heartburn/Nausea Clonazepam (Clonazepam 1 Mg Tablet) 1 mg PO BEDTIME [facility] Last Admin: 03/26/25 20:44 Dose: 1 mg Clonazepam (Clonazepam 0.5 Mg Tablet) 0.5 mg PO DAILY [facility] Last Admin: 03/27/25 08:36 Dose: 0.5 mg Clonidine HCl (Clonidine Hcl 0.1 Mg Tablet) 0.1 mg PO BEDTIME [facility]; Protocol Last Admin: 03/26/25 20:45 Dose: 0.1 mg Gabapentin (Gabapentin 400 Mg Capsule) 800 mg PO TID [facility] Last Admin: 03/27/25 08:35 Dose: 800 mg Hydroxyzine HCl (Hydroxyzine Hcl 50 Mg Tablet) 50 mg PO TID [facility] Last Admin: 03/27/25 08:36 Dose: 50 mg Magnesium Hydroxide (Milk Of Magnesia 30 Ml Oral.Susp) 30 ml PO DAILY PRN PRN Reason: Constipation Metformin HCl (Metformin Hcl 500 Mg Tablet) 500 mg PO BEDTIME [facility] Last Admin: 03/26/25 20:45 Dose: 500 mg Methadone HCl (Methadone Hcl 20 Mg/2 Ml Oral.Conc) 100 mg PO DAILY@0800 [facility] Last Admin: 03/27/25 08:34 Dose: 100 mg Nicotine Polacrilex (Nicotine Polacrilex 2 Mg Gum) 4 mg BUCCAL Q2H PRN PRN Reason: Nicotine Cravings Last Admin: 03/26/25 21:48 Dose: 4 mg Olanzapine (Olanzapine 10 Mg Tablet) 10 mg PO BEDTIME [facility] Last Admin: 03/26/25 20:45 Dose: 10 mg Olanzapine (Olanzapine 10 Mg Tablet) 10 mg PO BEDTIME PRN PRN Reason: insomnia Trazodone HCl (Trazodone Hcl 50 Mg Tablet) 50 mg PO BEDTIME MRX1 PRN PRN Reason: Insomnia Allergies Allergies Allergy/AdvReac Type Severity Reaction Status Date / Time Sulfa (Sulfonamide Allergy Unknown Unknown Verified 12/13/24 18:42 Antibiotics) Assessment & Plan Assessment & Plan (1) Manic affective disorder with recurrent episode: Status: Acute Code(s): F31.89 - Other bipolar disorder (2) Cocaine abuse: Status: Acute Code(s): F14.10 - Cocaine abuse, uncomplicated (3) Opioid use disorder: Status: Acute Code(s): F11.90 - Opioid use, unspecified, uncomplicated (4) Homelessness: Status: Acute Code(s): Z59.00 - Homelessness unspecified Plan restart/continue outpt regimen. allow to detox from substances. further dispo pending inpt stabilization. 03/27/25: Patient slept for 8 hours, increasing in appetite, irritable regarding food and setting limit. Making threats to hurt herself and others. Labile, throw tantrum at staff, swearing at staff when set limit and redirected. Attended no groups, asked to see if she can get hard candy and have her own art supply. Refer patent back to primary team to make decision. She is passively engaged in conversation. Denies SI. No AVH observed during short guarded conversation. Can be psychotic and impulsive. Patient educated on: diagnosis, medication risk/benefits and substance abuse Informed Consent: understands and further education needed Reason for continued inpatient stay Substantial Risk for: med/psych decompensation Time Spent With Patient Time: Total time managing care of this patient today ____ minutes.
[2025-03-27 19:57] VITALS: BP 129/64; PULSE 62; RESP 16; TEMP 36.6; O2SAT 99
[2025-03-28 08:00] VITALS: RESP 18
[2025-03-28] MEDS: methADONE HCl 20 MG/2 ML ORAL.CONC 100 MG PO (08:15)
[2025-03-28] MEDS: Nicotine 21 MG PATCH.TD24 TRANSDERMA (13:02)
[2025-03-28 20:00] VITALS: BP 128/83; PULSE 70; RESP 18; TEMP 37.1; O2SAT 98
--- NOTE | 2025-03-28 20:14 | HO.PSYCHPN ---
Subjective Subjective Date of Service: 03/28/25 Reason For Visit: PTSD,polysubstance Use Disorder,Schizaffective Dis Subjective Notes: Conditional Voluntary Healthcare Proxy: No Guardianship: No Medical Problems Affecting Mental Status: No Interim History: Medical record and nursing notes reviewed; case discussed during rounds with team/nursing staff, and met with patient for supportive therapy/psychoeducation, as well as medication management. Patient slept 8 hours, compliant with medication, wanted nicotine patch as she smoked 1.5 pack per day. Per nursing, patient was irritable, yelling at staff over her personal hygiene. Reports anxiety and depression 01/21 She spent most of the time in bed sleeping/resting. She was out to the kitchen looking at the magazines, take some pages from them to work on the project. She requests to increase her anxiety medication. She reported that she is in her room because she does not want to be around with people. She also requests hard candy which we do not provide. Denies SI/SIB/HI/AVH, labile, irritable, but do not make any delusional or paranoid statements, Attended no groups. Nursing asked for additional Klonopin at bedtime which she on rehab 1 mg at bedtime scheduled. We will leave it to the treatment team to make decision if the patient should get back to Klonopin 2 mg at bedtime. Medication Compliance: Yes Side effects from medications: No Attending Groups: No Review of Systems Acute medical concerns: No Medical Review of Systems: unchanged Review of Systems Review of Systems No shortness of breath, chest pain, dizziness, lightheadedness, abdominal pain or discomfort, nausea vomiting or diarrhea Mental Status Exam Mental Status Exam Narrative: Less disheveled hospital attire. variably cooperative. PMA of restlessness. speech incr amount and rate and loudness. decr latency. thoughts more organized. affect labile. mood anxious, irritable. Denies SI/SIB/ HI/AVH, can be impulsive and demanding. Poor insight and judgment. Diagnostics Vital Signs (24Hr): Vital Signs - 24 hr 03/28/25 08:00 03/28/25 20:00 Temperature 98.8 F Pulse Rate 70 Respiratory Rate 18 18 Blood Pressure 128/83 Pulse Oximetry 98 Oxygen Delivery Method Room Air BMI result Body Mass Index 34.9 Labs 03/26/25 08:24 Medications Medications Current Medications Acetaminophen (Acetaminophen 325 Mg Tablet) 650 mg PO Q6H PRN PRN Reason: Headache/Pain, Scale 1-10 Al Hydroxide/Mg Hydroxide (Magnesium Hydrox/Alum Hydrox 30 Ml Oral.Susp) 30 ml PO Q6H PRN PRN Reason: Heartburn/Nausea Clonazepam (Clonazepam 1 Mg Tablet) 1 mg PO BEDTIME DANE Last Admin: 03/28/25 20:03 Dose: 1 mg Clonazepam (Clonazepam 0.5 Mg Tablet) 0.5 mg PO DAILY DANE Last Admin: 03/28/25 08:16 Dose: 0.5 mg Clonidine HCl (Clonidine Hcl 0.1 Mg Tablet) 0.1 mg PO BEDTIME DANE; Protocol Last Admin: 03/28/25 20:03 Dose: 0.1 mg Gabapentin (Gabapentin 400 Mg Capsule) 800 mg PO TID DANE Last Admin: 03/28/25 20:03 Dose: 800 mg Hydroxyzine HCl (Hydroxyzine Hcl 50 Mg Tablet) 50 mg PO TID [facility] Last Admin: 03/28/25 20:03 Dose: 50 mg Magnesium Hydroxide (Milk Of Magnesia 30 Ml Oral.Susp) 30 ml PO DAILY PRN PRN Reason: Constipation Metformin HCl (Metformin Hcl 500 Mg Tablet) 500 mg PO BEDTIME DANE Last Admin: 03/28/25 20:03 Dose: 500 mg Methadone HCl (Methadone Hcl 20 Mg/2 Ml Oral.Conc) 100 mg PO DAILY@0800 [facility] Last Admin: 03/28/25 08:15 Dose: 100 mg Nicotine (Nicotine 21 Mg Patch.Td24) 21 mg TRANSDERMA DAILY [facility] Last Admin: 03/28/25 13:02 Dose: 21 mg Nicotine Polacrilex (Nicotine Polacrilex 2 Mg Gum) 4 mg BUCCAL Q2H PRN PRN Reason: Nicotine Cravings Last Admin: 03/28/25 19:31 Dose: 4 mg Olanzapine (Olanzapine 10 Mg Tablet) 10 mg PO BEDTIME DANE Last Admin: 03/28/25 20:03 Dose: 10 mg Olanzapine (Olanzapine 10 Mg Tablet) 10 mg PO BEDTIME PRN PRN Reason: insomnia Last Admin: 03/28/25 20:03 Dose: 10 mg Trazodone HCl (Trazodone Hcl 50 Mg Tablet) 50 mg PO BEDTIME MRX1 PRN PRN Reason: Insomnia Allergies Allergies Allergy/AdvReac Type Severity Reaction Status Date / Time Sulfa (Sulfonamide Allergy Unknown Unknown Verified 12/13/24 18:42 Antibiotics) Assessment & Plan Assessment & Plan (1) Manic affective disorder with recurrent episode: Status: Acute Code(s): F31.89 - Other bipolar disorder (2) Cocaine abuse: Status: Acute Code(s): F14.10 - Cocaine abuse, uncomplicated (3) Opioid use disorder: Status: Acute Code(s): F11.90 - Opioid use, unspecified, uncomplicated (4) Homelessness: Status: Acute Code(s): Z59.00 - Homelessness unspecified Plan restart/continue outpt regimen. allow to detox from substances. further dispo pending inpt stabilization. 03/27/25: Patient slept for 8 hours, increasing in appetite, irritable regarding food and setting limit. Making threats to hurt herself and others. Labile, throw tantrum at staff, swearing at staff when set limit and redirected. Attended no groups, asked to see if she can get hard candy and have her own art supply. Refer patent back to primary team to make decision. She is passively engaged in conversation. Denies SI. No AVH observed during short guarded conversation. Can be psychotic and impulsive. 03/28/25: Patient slept 8 hours, compliant with medication, wanted nicotine patch as she smoked 1.5 pack per day. Per nursing, patient was irritable, yelling at staff over her personal hygiene. Reports anxiety and depression 01/21 She spent most of the time in bed sleeping/resting. She was out to the kitchen looking at the magazines, take some pages from them to work on the project. She requests to increase her anxiety medication. She reported that she is in her room because she does not want to be around with people. She also requests hard candy which we do not provide. Denies SI/SIB/HI/AVH, labile, irritable, but do not make any delusional or paranoid statements, Attended no groups. Nursing asked for additional Klonopin at bedtime which she on rehab 1 mg at bedtime scheduled. We will leave it to the treatment team to make decision if the patient should get back to Klonopin 2 mg at bedtime. Nicotine patch daily for nicotine craving. Patient educated on: medication risk/benefits and therapeutic strategies Informed Consent: further education needed Reason for continued inpatient stay Substantial Risk for: med/psych decompensation Time Spent With Patient Time: Total time managing care of this patient today ____ minutes.
--- NOTE | 2025-03-28 22:51 | PC.NURSE ---
vomited a large amount in bathroom into trash bin.
[2025-03-29] MEDS: Magnesium Hydrox/Alum Hydrox 30 ML ORAL.SUSP PO (04:31)
[2025-03-29 07:10] VITALS: BP 142/88; PULSE 81; RESP 20; TEMP 36.8; O2SAT 96
[2025-03-29] MEDS: methADONE HCl 20 MG/2 ML ORAL.CONC 100 MG PO (08:56)
[2025-03-29] MEDS: Nicotine 21 MG PATCH.TD24 TRANSDERMA (09:50)
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
[2025-03-29 21:10] VITALS: BP 123/63; PULSE 97; RESP 16; TEMP 37; O2SAT 98
[2025-03-30] MEDS: methADONE HCl 20 MG/2 ML ORAL.CONC 100 MG PO (08:14)
[2025-03-30 08:36] VITALS: BP 115/65; PULSE 80; RESP 16; TEMP 36.7; O2SAT 94
[2025-03-30] MEDS: Nicotine 21 MG PATCH.TD24 TRANSDERMA (08:47)
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
[2025-03-30 19:25] VITALS: BP 133/87; PULSE 99; TEMP 36.6; O2SAT 96
[2025-03-31 07:34] VITALS: BP 121/65; PULSE 86; RESP 20; TEMP 36.5; O2SAT 95
[2025-03-31] MEDS: methADONE HCl 20 MG/2 ML ORAL.CONC 100 MG PO (07:36)
[2025-03-31] MEDS: Nicotine 21 MG PATCH.TD24 TRANSDERMA (08:10)
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
== END 2025-03-31 11:17 | disposition other institution (70) | DRG 753 ==
PROVIDERS: Clinical Nurse Specialist Psychiatric/Mental Health, Adult; Admitting Provider Psychiatry & Neurology Psychiatry; Visit Provider Psychiatry & Neurology Psychiatry
DX: F30.9 Manic episode, unspecified (principal); F11.20 Opioid dependence, uncomplicated; F17.210 Nicotine dependence, cigarettes, uncomplicated; F19.10 Other psychoactive substance abuse, uncomplicated; F14.10 Cocaine abuse, uncomplicated; Z59.02 Unsheltered homelessness; Z71.6 Tobacco abuse counseling; Z79.84 Long term (current) use of oral hypoglycemic drugs; Z79.899 Other long term (current) drug therapy
CPT/HCPCS: 36415; 80061; 82565; 82607; 82746; 83036; 83735; 84439; 84443

== ENCOUNTER → 2025-03-25 19:35 | Outpatient (BNV) | payer OTHER, SELFPAY | PROVIDERS: Admitting Provider Psychiatry & Neurology Psychiatry; Visit Provider Psychiatry & Neurology Psychiatry | DX: F31.89 Other bipolar disorder (principal); F14.10 Cocaine abuse, uncomplicated; F11.90 Opioid use, unspecified, uncomplicated; Z59.00 Homelessness unspecified | CPT/HCPCS: 99231; 99232; 99233 ==

== ENCOUNTER → 2025-03-25 19:35 | Outpatient (BNV) | payer MEDICAID, SELFPAY | PROVIDERS: Admitting Provider Psychiatry & Neurology Psychiatry; Visit Provider Nurse Practitioner Family | DX: Z00.8 Encounter for other general examination (principal) | CPT/HCPCS: 99429 ==